=== PATIENT | female | born 1975 | race Caucasian/White ===

== ENCOUNTER 2021-03-02 10:16 | Outpatient (REF) | payer OTHER, SELFPAY ==
[2021-03-02 10:40] LABS: MANUAL DIFF FLAG NO
[2021-03-02 10:56] LABS: Basophils Absolute Auto 0.1 X10*3/uL (0.0-0.2); Basophils Percent Auto 0.5 % (0-2); Eosinophils Absolute Auto 0.1 X10*3/uL (0.0-0.4); Hematocrit 39.8 % (37-47); Hemoglobin 14.1 g/dl (12.0-16.0); Imm Gran Abs Auto 0.06 X10*3/uL (0.00-0.03); Imm Gran Pct Auto 0.6 % (0.0-0.4); Lymphocytes Absolute Auto 2.8 X10*3/uL (1.2-4.9); Lymphocytes Percent Auto 28.9 % (20-40); Mean Corpuscular HGB Conc 35.4 g/dl (31.0-35.0); Mean Corpuscular Hemoglobin 32.5 pg (27.0-33.0); Mean Corpuscular Volume 91.7 fL (80-98); Mean Platelet Volume 10.1 fL (9.4-12.3); Monocytes Absolute Auto 0.4 X10*3/uL (0.1-1.2); Monocytes Percent Auto 3.9 % (2-11); Neutrophils Absolute Auto 6.3 X10*3/uL (2.0-8.3); Neutrophils Percent Auto 65.1 % (45-73); Platelet Count 268 X10*3/uL (160-400); Red Blood Count 4.34 X10*6/uL (4.20-5.50); Red Cell Distribution Width 12.5 % (11.0-16.0); White Blood Count 9.6 X10*3/uL (4.8-10.8)
[2021-03-02 11:22] LABS: Alanine Aminotransferase 19 U/L (0-31); Albumin Level 4.6 g/dL (3.5-5.0); Alkaline Phosphatase 45 U/L (39-117); Anion Gap 10 (12-20); Aspartate Amino Transferase 20 U/L (5-31); Bilirubin Total 0.4 mg/dL (0.0-1.0); Blood Urea Nitrogen 9 mg/dL (9-16); Calcium 9.9 mg/dL (8.4-10.2); Carbon Dioxide 27 mmol/L (22-29); Chloride 104 mmol/L (96-108); Cholesterol 170 mg/dL; Estimated Glomerular Filt Rate > 60; Glucose Random 97 mg/dL (60-115); HDL Cholesterol 56 mg/dL; LDL Cholesterol Calculated 93 mg/dl; Potassium 4.4 mmol/L (3.3-5.1); Sodium 137 mmol/L (135-145); Total Protein 7.1 g/dL (6.5-8.0); Triglycerides 105 mg/dL
[2021-03-02 11:43] LABS: Free T4 (Free Thyroxine) 0.92 ng/dL (0.71-1.85)
[2021-03-02 11:56] LABS: Folate > 20.0 ng/mL (> or = 4.0); Vitamin B12 656 pg/mL (200-900)
== END 2021-03-02 10:17 | disposition home or self-care (01) ==
LOC: HO.LAB 10:16
PROVIDERS: PCP Internal Medicine; Visit Provider Internal Medicine
DX: E03.9 Hypothyroidism, unspecified (principal); E78.00 Pure hypercholesterolemia, unspecified
CPT/HCPCS: 36415; 80053; 80061; 82306; 82607; 82746; 84439; 84443; 85025

== ENCOUNTER 2021-03-09 08:03 | Outpatient (REF) | payer OTHER, SELFPAY ==
--- NOTE | ~2021-03-09 | US_ITS ---
EXAMINATION: US COMPLETE ABDOMEN WITH LIVER ELASTOGRAPHY CLINICAL INFORMATION: Abnormal liver function tests COMPARISON: CT of the abdomen and pelvis March 2017 TECHNIQUE: Real-time imaging of the abdominal viscera. Noninvasive ultrasound liver fibrosis assessment is performed using Bhargavi ElastPQ point quantification shear wave elastography (pSWE) with a C5-2 MHz transducer. Multiple elastography samples are obtained. FINDINGS: PANCREAS: Normal. ABDOMINAL AORTA: The proximal, middle, and distal aortic segments are normal in caliber. INFERIOR VENA CAVA: Visualized portions are normal. LIVER: Liver echotexture is increased. The liver demonstrates normal size and contour. No focal lesion or intrahepatic biliary duct dilatation. The right lobe measures 16.7 cm in length. The left lobe measures 11.5 cm in length. Portal flow is normal/hepatopedal Shear wave liver elastography median stiffness is 1.6 m/s (reference: normal median stiffness is 1.3 m/s or less). IQR/median stiffness to assess sampling precision is 0.6 (reference: good quality data set is IQR/median stiffness of 0.15 or less). GALLBLADDER: There are gallstones in the gallbladder. The gallbladder is normal in size. The gallbladder wall is normal. COMMON BILE DUCT: Normal in caliber measuring 0.3 cm in diameter. RIGHT KIDNEY: Normal. No hydronephrosis. No renal calculi or focal parenchymal lesions. The kidney measures 11.5 cm in maximum dimension. LEFT KIDNEY: Normal. No hydronephrosis. No renal calculi or focal parenchymal lesions. The kidney measures 11.6 cm in maximum dimension. SPLEEN: Normal. The spleen measures 11.8 cm in maximum dimension. FREE FLUID: None. US/US abdomen comp w elastography IMPRESSION: 1. Impression: Gallstones. Slightly echogenic liver probably representing fatty infiltration.. 2. Liver elastography: Limited due to sampling error. REFERENCE: Society of Radiologists in Ultrasound Liver Stiffness Thresholds (2020): LIVER STIFFNESS THRESHOLDS: *Liver Stiffness equal or less than 1.3 m/s: High probability of being normal. *Liver Stiffness less than 1.7 m/s: In the absence of other known clinical signs, rules out compensated advanced chronic liver disease. *Liver Stiffness 1.7-2.1 m/s: Suggestive of compensated advanced chronic liver disease but need further test for confirmation. *Liver Stiffness over 2.1 m/s: Rules in compensated advanced chronic liver disease. *Liver Stiffness over 2.4 m/s: Suggestive of clinically significant portal hypertension. QUALITY OF DATA SET: *IQR/Median value equal or less than 0.15 implies a quality data set. *IQR/Median value over 0.15 implies a poor quality data set. SIGNIFICANT CHANGE FROM PRIOR EXAM: Significant change if liver stiffness measurment is 10% or greater from prior exam. OTHER CONSIDERATIONS: The stage of liver fibrosis may be overestimated in the setting of acute hepatitis, liver inflammation, elevated liver function tests, hepatic vascular congestion, obstructive cholestasis, non-fasting state, and infiltrative diseases such as amyloidosis and lymphoma. In some patients with NAFLD, the liver stiffness thresholds for compensated advanced chronic liver disease may be lower. In causes other than viral hepatitis and NAFLD, liver stiffness thresholds are not well established. The liver is normal in size. The liver contour is normal. Parenchymal echogenicity is normal. No focal hepatic lesion. There is no intrahepatic biliary duct dilatation seen.
== END 2021-03-09 08:04 | disposition home or self-care (01) ==
LOC: HO.US 08:03
PROVIDERS: PCP Internal Medicine; Visit Provider Internal Medicine
DX: R79.89 Other specified abnormal findings of blood chemistry (principal); K80.20 Calculus of gallbladder without cholecystitis without obstruction; Z87.442 Personal history of urinary calculi
CPT/HCPCS: 76700; 76705; 76981

== ENCOUNTER → 2021-04-18 07:56 | Outpatient (BNVA) | payer OTHER, SELFPAY | PROVIDERS: PCP Internal Medicine; Referring Provider Internal Medicine; Visit Provider Nurse Practitioner Family ==

== ENCOUNTER → 2021-05-23 08:05 | Outpatient (BNVA) | payer OTHER, SELFPAY | PROVIDERS: PCP Internal Medicine; Referring Provider Internal Medicine; Visit Provider Nurse Practitioner Family ==

== ENCOUNTER 2021-11-06 10:38 | Day surgery (SDC) | payer OTHER, SELFPAY ==
[2021-10-27 19:54] VITALS: BMI 38.6
--- NOTE | 2021-11-02 13:44 | HO.ANESPROP2 ---
Documented by User: Zahra Lopez NP 11/02/21 13:45 HPI - Anesthesia Eval Consult details Narrative: 46yo F for Colonoscopy PMFSH Active Problems Active Problems: All Active Problems (Updated 02/10/21 @ 17:12 by Brendon Avina MD) Colon cancer screening (Acute) Cholelithiasis (Acute) History of renal calculi (Acute) Acne (Acute) Hirsutism (Acute) Obsessive compulsive disorder (Acute) Hypothyroid (Acute) Recurrent major depression (Acute) Obesity (BMI 30-39.9) (Acute) Past Medical History Medical History (Updated 11/02/21 @ 13:44 by Zahra Lopez NP) Asthma Hypothyroid Obsessive compulsive disorder Polycystic ovarian syndrome Recurrent major depression Family History Family History Father Cancer Renal cancer Myocardial infarct Mother No problems noted. Sister No problems noted. Sister No problems noted. Son No problems noted. Maternal Grandmother Colon cancer Surgical History Surgical History H/O abdominal surgery History of ankle surgery History of section Social History Social History Housing: House Alcohol intake: current Alcohol intake frequency: a few times a month Patient Tobacco Use Status: Former Tobacco user Tobacco use type: Cigarette Years Smoked: Quit 2015 e-Cigarette/Vaping Use: Never Used Second Hand Smoke Exposure: No Use of substances other than those prescribed or required for medical reasons: No Are you DNR?: No Advance Directives: No Advance Directives Information Provided: Yes Advance Directives on File: No Recently lost weight without trying: No Nutrition Risks: No Nutritional Risk Patient : No Current occupational status: employed Meds Allergies Allergy/AdvReac Type Severity Reaction Status Date / Time Sulfa (Sulfonamide Allergy Mild RASH Verified 10/30/21 11:07 Antibiotics) [Sulfa (Sulfonamides)] erythromycin base Allergy Unknown HIVES Verified 10/30/21 11:07 [From ERYTHROCIN] Home Medications Medication Instructions Recorded Confirmed Last Taken Type bupropion HCl 200 mg tablet,12 hr 200 mg PO DAILY 02/10/21 10/27/21 Unknown History sustained-release (Wellbutrin SR) cholecalciferol (vitamin D3) 25 25 mcg PO DAILY 02/10/21 10/27/21 Unknown History mcg (1,000 unit) capsule fluoxetine 10 mg tablet 10 mg PO DAILY 02/10/21 10/27/21 Unknown History levonorgestrel 20 mcg/24 hours (7 1 device intrauterine DIRECTED 02/10/21 10/27/21 Unknown History yrs) 52 mg intrauterine device (Mirena) magnesium oxide 500 mg capsule 500 mg PO DAILY 02/10/21 10/27/21 Unknown History psyllium husk 0.52 gram capsule 0.52 g PO BEDTIME 02/10/21 10/27/21 Unknown History (Daily Fiber) Exam Exam Date and Time: November 02, 2021 1344 Height,Weight and Vital Signs: Height 5 ft 4 in Weight 102.058 kg Assessment and Plan Assessment Anesthesia Assessment: Chart Reviewed Documented by User: Radha Arevalo MD 11/06/21 11:21 [facility] Past Medical History Medical History (Updated 11/02/21 @ 13:44 by Zahra Lopez NP) Asthma Hypothyroid Obsessive compulsive disorder Polycystic ovarian syndrome Recurrent major depression Family History Family History Father Cancer Renal cancer Myocardial infarct Mother No problems noted. Sister No problems noted. Sister No problems noted. Son No problems noted. Maternal Grandmother Colon cancer Family history of problems with anesthesia: No Surgical History Surgical History H/O abdominal surgery History of ankle surgery History of section History of Problems with Anesthesia: No Social History Social History Housing: House Alcohol intake: current Alcohol intake frequency: a few times a month Patient Tobacco Use Status: Former Tobacco user Tobacco use type: Cigarette Years Smoked: Quit 2015 e-Cigarette/Vaping Use: Never Used Second Hand Smoke Exposure: No Use of substances other than those prescribed or required for medical reasons: No Are you DNR?: No Advance Directives: No Advance Directives Information Provided: Yes Advance Directives on File: No Recently lost weight without trying: No Nutrition Risks: No Nutritional Risk Patient : No Current occupational status: employed Meds Allergies Allergy/AdvReac Type Severity Reaction Status Date / Time Sulfa (Sulfonamide Allergy Mild RASH Verified 10/30/21 11:07 Antibiotics) [Sulfa (Sulfonamides)] erythromycin base Allergy Unknown HIVES Verified 10/30/21 11:07 [From ERYTHROCIN] Home Medications Medication Instructions Recorded Confirmed Last Taken Type bupropion HCl 200 mg tablet,12 hr 200 mg PO DAILY 02/10/21 10/27/21 Unknown History sustained-release (Wellbutrin SR) cholecalciferol (vitamin D3) 25 25 mcg PO DAILY 02/10/21 10/27/21 Unknown History mcg (1,000 unit) capsule fluoxetine 10 mg tablet 10 mg PO DAILY 02/10/21 10/27/21 Unknown History levonorgestrel 20 mcg/24 hours (7 1 device intrauterine DIRECTED 02/10/21 10/27/21 Unknown History yrs) 52 mg intrauterine device (Mirena) magnesium oxide 500 mg capsule 500 mg PO DAILY 02/10/21 10/27/21 Unknown History psyllium husk 0.52 gram capsule 0.52 g PO BEDTIME 02/10/21 10/27/21 Unknown History (Daily Fiber) Exam Airway Mallampati Class: II TM Dist: >3cm Neck ROM: Full Heart: rrr Lungs: cta Assessment and Plan Assessment Anesthesia Assessment: Anesthesia Plan Discussed and Chart Reviewed Final Anesthetic Review Family History of Problems with Anesthesia: No History of Problems with Anesthesia: No NPO: Yes ASA Class: III Final Preanesthetic Review: No Changes in Pt Med Stat, Meds/Allgs Chart Reviewed and Consent Obtained/Reviewed Patient Risk: Intermediate Procedure Risk: Intermediate Anesthetic Plan Anesthetic Plan: MAC: Disposition: Standard PACU
[2021-11-06 11:06] VITALS: BP 115/83; PULSE 79; RESP 18; TEMP 36.1; O2SAT 95
[2021-11-06] MEDS: Lactated Ringers 1,000 ML 100 ML IVCONT (11:20)
[2021-11-06 11:40] LABS: UPreg QC Valid YES; Urine Pregnancy NEGATIVE (NEGATIVE)
--- NOTE | 2021-11-06 12:14 | MHC.SHP ---
Pre-Procedural Eval Section A Date of Service: 11/06/21 The patient is an INPATIENT: No The History & Physical has been completed within 30 days and I have reviewed it.: No Section B Chief Complaint: screening Relevant Family History (Specify if Yes): Yes Relevant Social History: Tobacco Use (former smoker) Present Medications: see Short Stay Collaborative assessment Medical History: Significant History (Asthma Cholelithiasis History of renal calculi Hypothyroid Obesity (BMI 30-39.9) Polycystic ovarian syndrome) History of Previous Operations: Relevant previous surgery/procedure and date(s) (H/O abdominal surgery History of ankle surgery History of section) Allergies: Allergies Allergy/AdvReac Type Severity Reaction Status Date / Time Sulfa (Sulfonamide Allergy Mild RASH Verified 10/30/21 11:07 Antibiotics) [Sulfa (Sulfonamides)] erythromycin base Allergy Unknown HIVES Verified 10/30/21 11:07 [From ERYTHROCIN] Review of Systems Sugical H&P ROS: Negative: Constitution, Cardiovascular, Respiratory and Gastrointestinal Exam Surgical H&P Exam: Normal: Heart, Normal: Lungs, Normal: Extremities and Normal: Abdomen Plan Diagnosis/Plan: Unchanged I have reviewed the history and physical and performed a pertinent physical examination on my patient. No changes have occurred unless specified.
--- NOTE | 2021-11-06 12:26 | P.BOP_ITS ---
Brief Operative Note Date of Service: 11/06/21 Pre-op diagnosis: Colon cancer screen, family history of colon cancer (GM in her late 60's) Post-op diagnosis: other (Colon polyps, diverticulosis, hemorrhoids) Procedure: COLONOSCOPY TILL CECUM WITH BIOPSIES AND SNARE POLYPECTOMY Consent: Indications for the procedure and potential complications of bleeding, perforation, reaction to medications and missed diagnosis were discussed with the patient and informed consent was obtained. Instrument: Olympus PCF H 190 L variable stiffness pediatric colonoscope Monitoring: Vital signs and clinical assessment, intermittent blood pressure monitoring, continuous EKG monitoring, Pulse oximetry and Carbon Dioxide monitoring were done throughout the procedure. Colon withdrawl time was 17 minutes. Procedure: The patient was placed in the left lateral decubitis position and pre-procedure medications were administered. After a digital rectal examination of the ano-rectum, the video colonoscope was inserted into the rectum and advanced through the colon to the cecum. The colonoscope was slowly withdrawn in a retrograde panoramic fashion and the colon mucosa was carefully examined including a retroflexed view of the rectum. Findings and interventions are described below. Procedure Difficulty: Without difficulty Findings: Terminal Ileum: Not evaluated Cecum: Partially evaluated due to undigested vegetable matter Ascending Colon: Normal Transverse Colon: A 5-6 mm sessile polyp removed with a cold bx. Descending Colon: Normal Sigmoid Colon: Moderate diverticulosis Rectum: A 7-8 mm diminutive appearing polyp removed with a cold snare. Ano-rectum: Small internal hemorrhoids Colon preparation: Good after some irrigation Impression and Post Procedure Diagnosis: Colonoscopy Findings: Two small polyps removed Moderate diverticulosis seen in the sigmoid colon Moderate hemorrhoids on retroflexed exam. Plan: Await pathology results Patient has an appointment on 11/21/21 in the GI Clinic with Linda Lewis F NP-IZABEL . Repeat Colonoscopy interval based on path results - in 5 years if polyps are adenomatous and due to positive FH of colon cancer. Above findings were reviewed with the patient and colon polyps and diverticulosis handouts were given in the discharge area Surgeon: Jordan Rodriguez MD Anesthesia: MAC (Dr Scruggs) Was an Log Deck Tender used for this Procedure?: Yes Log Deck Tender: Doreen Wesley Estimated blood loss (mL): 0 Pathology: other (A. transverse colon polyp B. rectal polyp) Condition: stable Disposition: PACU
[2021-11-06 13:00] VITALS: BP 110/59; PULSE 83; RESP 16; TEMP 36.1; O2SAT 96
[2021-11-06 13:15] VITALS: BP 111/74; PULSE 81; RESP 16; TEMP 36.5; O2SAT 99
--- NOTE | 2021-11-06 16:39 | W.PM.OPN ---
Operative Note Operative Note Date of Service: 11/06/21 Narrative: Pre-op diagnosis: Colon cancer screen, family history of colon cancer (GM in her late 60's) Post-op diagnosis:?other (Colon polyps, diverticulosis, hemorrhoids) Procedure: COLONOSCOPY TILL CECUM WITH BIOPSIES AND SNARE POLYPECTOMY Consent: Indications for the procedure and potential complications of bleeding, perforation, reaction to medications and missed diagnosis were discussed with the patient and informed consent was obtained. Instrument: Olympus PCF H 190 L variable stiffness pediatric colonoscope Monitoring: Vital signs and clinical assessment, intermittent blood pressure monitoring, continuous EKG monitoring, Pulse oximetry and Carbon Dioxide monitoring were done throughout the procedure. Colon withdrawl time was 17 minutes. Procedure: The patient was placed in the left lateral decubitis position and pre-procedure medications were administered. After a digital rectal examination of the ano-rectum, the video colonoscope was inserted into the rectum and advanced through the colon to the cecum. The colonoscope was slowly withdrawn in a retrograde panoramic fashion and the colon mucosa was carefully examined including a retroflexed view of the rectum. Findings and interventions are described below. Procedure Difficulty: Without difficulty Findings: Terminal Ileum: Not evaluated Cecum:? Partially evaluated due to undigested vegetable matter Ascending Colon:? Normal Transverse Colon:? A 5-6 mm sessile polyp removed with a cold bx. Descending Colon:? Normal Sigmoid Colon:? Moderate diverticulosis Rectum:? A 7-8 mm diminutive appearing polyp removed with a cold snare. Ano-rectum:? Small internal hemorrhoids Colon preparation:? Good after some irrigation Impression and Post Procedure Diagnosis: Colonoscopy Findings: Two small polyps removed Moderate diverticulosis seen in the sigmoid colon Moderate hemorrhoids on retroflexed exam. Plan: Await pathology results Patient has an appointment on 11/21/21 in the GI Clinic with ? Linda Lewis FNP-BC . Repeat Colonoscopy interval based on path results - in 5 years if polyps are adenomatous and due to positive FH of colon cancer. Above findings were reviewed with the patient and colon polyps and diverticulosis handouts were given in the discharge area Surgeon: Jordan Rodriguez MD Anesthesia:?MAC (Dr Scruggs) Was an Polymer Scientist used for this Procedure?:?Yes Polymer Scientist:?Doreen Wesley Estimated blood loss (mL):?0 Pathology:?other (A. transverse colon polyp? B. rectal polyp) Condition:?stable Disposition:?PACU
== END 2021-11-06 14:00 | disposition home or self-care (01) ==
PROVIDERS: Nurse Practitioner; PCP Internal Medicine; Visit Provider Internal Medicine Gastroenterology
PROC: 0DJD8ZZ Inspection of Lower Intestinal Tract, Via Natural or Artificial Opening Endoscopic (ICD-10-PCS; CPT 45378; principal; 2021-11-06 11:50)
DX: Z12.11 Encounter for screening for malignant neoplasm of colon (principal); Z80.0 Family history of malignant neoplasm of digestive organs; K63.5 Polyp of colon; K62.1 Rectal polyp; K57.30 Diverticulosis of large intestine without perforation or abscess without bleeding; K64.8 Other hemorrhoids; J45.909 Unspecified asthma, uncomplicated; E03.9 Hypothyroidism, unspecified; E28.2 Polycystic ovarian syndrome; E66.9 Obesity, unspecified; Z68.38 Body mass index [BMI] 38.0-38.9, adult; Z79.899 Other long term (current) drug therapy; Z88.2 Allergy status to sulfonamides; Z88.1 Allergy status to other antibiotic agents; Z87.891 Personal history of nicotine dependence
CPT/HCPCS: 45385; 45380; 81025; 88305

== ENCOUNTER → 2021-11-29 15:34 | Outpatient (REF) | payer OTHER, SELFPAY | LOC: HO.SL 15:34 | PROVIDERS: PCP Internal Medicine; Visit Provider Internal Medicine | DX: G47.33 Obstructive sleep apnea (adult) (pediatric) (principal) | CPT/HCPCS: 95806 ==

== ENCOUNTER 2022-11-03 08:21 | Outpatient (REF) | payer OTHER, SELFPAY ==
[2022-11-03 08:47] LABS: MANUAL DIFF FLAG NO
[2022-11-03 09:05] LABS: Estimated Average Glucose 100 mg/dL; Hemoglobin A1c % 5.1 %
[2022-11-03 09:07] LABS: Basophils Absolute Auto 0.1 X10*3/uL (0.0-0.2); Basophils Percent Auto 0.6 % (0-2); Eosinophils Absolute Auto 0.1 X10*3/uL (0.0-0.4); Eosinophils Percent Auto 0.9 % (0-4); Hemoglobin 13.9 g/dl (12.0-16.0); Imm Gran Abs Auto 0.05 X10*3/uL (0.00-0.03); Imm Gran Pct Auto 0.6 % (0.0-0.4); Lymphocytes Absolute Auto 2.5 X10*3/uL (1.2-4.9); Lymphocytes Percent Auto 31.7 % (20-40); Mean Corpuscular HGB Conc 33.9 g/dl (31.0-35.0); Mean Corpuscular Hemoglobin 31.8 pg (27.0-33.0); Mean Corpuscular Volume 93.8 fL (80.0-98.0); Mean Platelet Volume 10.1 fL (9.4-12.3); Monocytes Absolute Auto 0.4 X10*3/uL (0.1-1.2); Monocytes Percent Auto 5.2 % (2-11); Neutrophils Absolute Auto 4.7 x10*3/uL (2.0-8.3); Platelet Count 304 X10*3/uL (160-400); Red Blood Count 4.37 X10*6/uL (4.20-5.50); Red Cell Distribution Width 13.1 % (11.0-16.0); White Blood Count 7.8 X10*3/uL (4.8-10.8)
[2022-11-03 09:57] LABS: Alanine Aminotransferase 13 U/L (0-31); Albumin Level 4.4 g/dL (3.5-5.0); Alkaline Phosphatase 53 U/L (39-117); Anion Gap 12 (12-20); Aspartate Amino Transferase 14 U/L (5-31); Bilirubin Total 0.4 mg/dL (0.0-1.0); Blood Urea Nitrogen 17 mg/dL (9-16); Calcium 10.4 mg/dL (8.4-10.2); Carbon Dioxide 26 mmol/L (22-29); Chloride 104 mmol/L (96-108); Cholesterol 189 mg/dL; Estimated Glomerular Filt Rate > 60; Glucose Random 100 mg/dL (60-115); HDL Cholesterol 51 mg/dL; LDL Cholesterol Calculated 106 mg/dl; Potassium 4.4 mmol/L (3.3-5.1); Sodium 138 mmol/L (135-145); Total Protein 7.4 g/dL (6.5-8.0); Triglycerides 162 mg/dL
[2022-11-03 10:07] LABS: Thyroid Stimulating Hormone 2.12 uIU/mL (0.32-4.0); Vitamin D 25-OH Total 62.6 ng/mL (>30)
[2022-11-03 10:18] LABS: Folate 7.4 ng/mL (> or = 4.0); Vitamin B12 379 pg/mL (200-900)
== END 2022-11-03 08:22 | disposition home or self-care (01) ==
LOC: HO.LAB 08:21
PROVIDERS: PCP Internal Medicine; Visit Provider Internal Medicine
DX: E03.9 Hypothyroidism, unspecified (principal); E78.00 Pure hypercholesterolemia, unspecified; E66.9 Obesity, unspecified; Z13.1 Encounter for screening for diabetes mellitus
CPT/HCPCS: 36415; 80053; 80061; 82306; 82607; 82746; 83036; 84439; 84443; 85025

== ENCOUNTER 2022-12-06 15:37 | Outpatient (AMB) | payer OTHER, SELFPAY ==
[2022-12-06 15:58] VITALS: BP 124/68; PULSE 77; O2SAT 98; BMI 40.2
--- NOTE | 2022-12-06 15:58 | A.OFFPC_ITS ---
Vital Signs 12/06/22 15:58 Height 5 ft 4 in Weight 234 lb BMI 40.2 BP 124/68 Blood Pressure Location Lt brachial Position Sitting Pulse 77 Pulse Source Pulse Oximeter Pulse Oximetry (%) 98 Oxygen Delivery Method Room Air Intake Visit Reasons: 3 month f/u Allergies Sulfa (Sulfonamide Antibiotics) [Sulfa (Sulfonamides)] Allergy (Mild, Verified 12/06/22 15:58) RASH erythromycin base [From ERYTHROCIN] Allergy (Unknown, Verified 12/06/22 15:58) HIVES Medication List - Last Reconciled 12/06/22 by Brendon Avina MD [AUTOPAP mode 6-20 cm H2O humidified AIR As directed] bupropion HCl (Wellbutrin SR) 200 mg PO DAILY cholecalciferol (vitamin D3) 25 mcg PO DAILY fluoxetine 10 mg PO DAILY levonorgestrel (Mirena) 1 device intrauterine DIRECTED levothyroxine 50 mcg PO DAILY 90 days psyllium husk (Daily Fiber) 0.52 grams PO BEDTIME spironolactone 100 mg PO BID 90 days Tobacco use date assessed: 08/31/22 Dental Screening Dental Screen Date: 12/06/22 Did you have a dental visit in the last 12 months?: Yes Did you have a dental problem in the last 6 months where you did not have access to dental care?: No Was dental information given to patient?: Patient has dentist HPI 3 month f/u HPI Details 47-year-old obese female with obstructive sleep apnea hypothyroidism generalized anxiety disorder last seen in August 2022 for physical blood work request and now for follow-up. Up-to-date with mammogram, and colonoscopy [facility] Medical History (Updated 12/06/22 @ 16:42 by Brendon Avina MD) Asthma Cholelithiasis Family history of colon cancer History of renal calculi Hypothyroid Obesity (BMI 30-39.9) Obsessive compulsive disorder Polycystic ovarian syndrome Recurrent major depression Surgical History H/O abdominal surgery History of ankle surgery History of section History of colonoscopy Family History (Updated 08/31/22 @ 16:37 by Brendon Avina MD) Father Cancer Renal cancer Myocardial infarct Lymphoma Mother No problems noted. Sister No problems noted. Sister No problems noted. Son No problems noted. Maternal Grandmother Colon cancer Other Mental health disorder Social History (Updated 08/31/22 @ 16:38 by Brendon Avina MD) Housing: House Alcohol intake: current Alcohol intake frequency: a few times a month Patient Tobacco Use Status: Former Tobacco user Tobacco use type: Cigarette Years Smoked: Quit 2016 e-Cigarette/Vaping Use: Never Used Second Hand Smoke Exposure: No service: No Current occupational status: employed Cognitive needs: No Hearing needs: No Vision needs: No Questionnaire PHQ-9 Over the last 2 weeks, how often have you been bothered by any of the following problems? 1. Little interest or pleasure in doing things: not at all 2. Feeling down, depressed, or hopeless: several days 3. Trouble falling or staying asleep, or sleeping too much: not at all 4. Feeling tired or having little energy: not at all 5. Poor appetite or overeating: not at all 6. Feeling bad about yourself - or that you are a failure or have let yourself or your family down: not at all 7. Trouble concentrating on things, such as reading the newspaper or watching television: not at all 8. Moving or speaking so slowly that other people could have noticed. Or the opposite - being so fidgety or restless that you have been moving around a lot m ore than usual: not at all 9. Thoughts that you would be better off or of hurting yourself in some way: not at all Total score: 1 Depression Screening Interpretation: Positive Source: Developed by Drs. Sammy Cristobal, Yoli Vasquez, Thor Nash and colleagues, with an educational alexa from [employer] [facility]. Thrive Questionnaire Date Thrive assessed: 08/31/22 AUDIT C Alcohol Use Questionnaire (AUDIT-C) 1. How often do you have a drink containing alcohol?: 2-4 times a month 2. How many drinks containing alcohol do you have on a typical day when you are drinking?: 1 or 2 Total Score: 2 CHARLEY-7 AMB Questionnaire CHARLEY-7 Date CHARLEY - 7 assessed: 08/31/22 Source: Developed by Drs. Sammy Cristobal, Thor Schmidt and colleagues, with an educational alexa from [employer] [facility] [facility]. Physical exam (Primary Care) Vital Signs: Last Vital Signs Pulse 77 12/06/22 15:58 BP 124/68 07/20/23 15:58 Pulse Ox 98 12/06/22 15:58 Oxygen Delivery Method Room Air 12/06/22 15:58 BMI result Body Mass Index 40.2 Tobacco/Smoking Status: Tobacco use Status Tobacco use date assessed 08/31/22 12/06/22 16:01 Patient Tobacco Use Status Former Tobacco user 12/06/22 16:01 Tobacco use type Cigarette 12/06/22 16:01 e-Cigarette/Vaping Use Never Used 12/06/22 16:01 PHQ-9: PHQ-9 Score PHQ-9: Total score 1 12/06/22 16:01 Depression Screening Interpretation: Positive Thrive Assessment: Date of Thrive Assessment Date Thrive assessed 08/31/22 12/06/22 16:01 Const General: alert; No acute distress Eyes Conjunctivae: conjunctivae normal Resp Auscultation: clear to auscultation bilaterally Cardio Rate: regular rate Rhythm: regular rhythm GI Inspection: Yes normal to inspection Extrem General: Yes normal to inspection and No edema Assessment and Plan Assessment & Plan (1) Obesity (BMI 30-39.9): Code(s): E66.9 - Obesity, unspecified Plan: Diet and exercise (2) Impaired glucose tolerance: Code(s): R73.02 - Impaired glucose tolerance (oral) Plan: Decrease the amount of carbohydrate intake, pasta, bread, rice and potatoes are all sugar and that is aside from all the sweet stuff, remember that fruits are good but they are Sweet also. (3) Hypercholesterolemia: Code(s): E78.00 - Pure hypercholesterolemia, unspecified Plan: Avoid fried foods, chicken skin, eggs, butter margarine, pastries and meat. Be it pork or beef they have a lot of cholesterol LDL goal of less than 130 and triglyceride of less than 150 (4) Obstructive sleep apnea: Comment: November 2021 Code(s): G47.33 - Obstructive sleep apnea (adult) (pediatric) Plan: Continue to use the CPAP more than 4 hours a night and benefits from this (5) Hypothyroid: Code(s): E03.9 - Hypothyroidism, unspecified Plan: Continue with thyroid medication (6) Hypercalcemia: Code(s): E83.52 - Hypercalcemia Plan: Patient has a history of renal calculi. Will request for parathyroid hormone and retest calcium. Orders: Orders Calcium Today E83.52 - Hypercalcemia Calcium, Ionized Today E83.52 - Hypercalcemia PTHI Today E83.52 - Hypercalcemia Lipid Panel 2 Months E78.00 - Pure hypercholesterolemia, unspecified, E83.52 - Hypercalcemia Comprehensive Met. Panel 2 Months E83.52 - Hypercalcemia Hemoglobin A1c 2 Months E83.52 - Hypercalcemia Medications: Changed From spironolactone 100 mg PO BID 30 days 60 tabs 3RF L70.9 - Acne, unspecified To spironolactone 100 mg PO BID 90 days 180 tabs 2RF L70.9 - Acne, unspecified Refilled levothyroxine 50 mcg PO DAILY 90 days 90 tabs 1RF E03.9 - Hypothyroidism, unspecified Coding Level of Care Code Est Pt Level 4 (67200) Diagnoses Obesity (BMI 30-39.9) E66.9 Impaired glucose tolerance R73.02 Hypercholesterolemia E78.00 Obstructive sleep apnea G47.33 Hypothyroid E03.9 Hypercalcemia E83.52
== END 2022-12-06 17:35 | disposition home or self-care (01) ==
PROVIDERS: Visit Provider Internal Medicine
DX: E03.9 Hypothyroidism, unspecified (principal); E83.52 Hypercalcemia; Z68.41 Body mass index [BMI] 40.0-44.9, adult; E66.9 Obesity, unspecified; R73.02 Impaired glucose tolerance (oral); E78.00 Pure hypercholesterolemia, unspecified; G47.33 Obstructive sleep apnea (adult) (pediatric)
CPT/HCPCS: 99214

== ENCOUNTER 2023-06-15 09:26 | Outpatient (REF) | payer OTHER, SELFPAY ==
[2023-06-15 10:50] LABS: Estimated Average Glucose 105 mg/dL; Hemoglobin A1c % 5.3 % (<6.0)
[2023-06-15 11:33] LABS: Alanine Aminotransferase 24 U/L (0-31); Albumin Level 4.4 g/dL (3.5-5.0); Alkaline Phosphatase 49 U/L (39-117); Anion Gap 13 (12-20); Aspartate Amino Transferase 18 U/L (5-31); Bilirubin Total 0.4 mg/dL (0.0-1.0); Blood Urea Nitrogen 11 mg/dL (9-16); Carbon Dioxide 25 mmol/L (22-29); Chloride 104 mmol/L (96-108); Cholesterol 196 mg/dL (<200); Estimated Glomerular Filt Rate > 60; Glucose Random 98 mg/dL (60-115); HDL Cholesterol 49 mg/dL (>40); LDL Cholesterol Calculated 117 mg/dL (<100); Potassium 4.3 mmol/L (3.3-5.1); Sodium 138 mmol/L (135-145); Total Protein 7.3 g/dL (6.5-8.0); Triglycerides 150 mg/dL (<150)
[2023-06-17 15:44] LABS: Calcium, Ionized 5.2 mg/dL (4.7-5.5)
== END 2023-06-15 09:27 | disposition home or self-care (01) ==
LOC: HO.LAB 09:26
PROVIDERS: PCP Internal Medicine; Visit Provider Internal Medicine
DX: E78.00 Pure hypercholesterolemia, unspecified (principal); E83.52 Hypercalcemia
CPT/HCPCS: 36415; 80053; 80061; 82330; 83036

== ENCOUNTER 2023-08-01 14:36 | Outpatient (AMB) | payer OTHER, SELFPAY ==
[2023-08-01 14:37] VITALS: BP 146/90; PULSE 82; O2SAT 98; BMI 41.5
--- NOTE | 2023-08-01 14:37 | MHC.PC.OV ---
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: Not Required per policy Accompanied by: Self / Same As Patient Allergies Sulfa (Sulfonamide Antibiotics) [Sulfa (Sulfonamides)] Allergy (Mild, Verified 08/01/23 14:38) RASH erythromycin base [From ERYTHROCIN] Allergy (Unknown, Verified 08/01/23 14:38) HIVES Medication List - Last Reconciled 08/01/23 by Brendon Avina MD [AUTOPAP mode 6-20 cm H2O humidified AIR As directed] bupropion HCl (Wellbutrin SR) 200 mg PO DAILY cholecalciferol (vitamin D3) 25 mcg PO DAILY fluoxetine 10 mg PO DAILY levonorgestrel (Mirena) 1 device intrauterine DIRECTED levothyroxine 50 mcg PO DAILY 90 days psyllium husk (Daily Fiber) 0.52 grams PO BEDTIME spironolactone 100 mg PO BID 90 days Tobacco use date assessed: 08/01/23 Dental Screening Dental Screen Date: 08/01/23 Did you have a dental visit in the last 12 months?: Yes Did you have a dental problem in the last 6 months where you did not have access to dental care?: No HPI discuss weight loss medication HPI Details 47-year-old morbidly obese female with a history of impaired glucose tolerance hypercholesterolemia obstructive sleep apnea hypothyroidism coming in for follow-up. Last seen in November 2022. Patient is up-to-date with mammogram and colonoscopy. [facility] Medical History (Updated 08/01/23 @ 15:01 by Brendon Avina MD) Family history of colon cancer Polycystic ovarian syndrome Asthma Obsessive compulsive disorder History of renal calculi Cholelithiasis Hypothyroid Recurrent major depression Obesity (BMI 30-39.9) Surgical History History of colonoscopy H/O abdominal surgery History of ankle surgery History of section Family History Father Cancer Renal cancer Myocardial infarct Lymphoma Mother No problems noted. Sister No problems noted. Sister No problems noted. Son No problems noted. Maternal Grandmother Colon cancer Other Mental health disorder Social History (Updated 08/31/22 @ 16:38 by Brendon Avina MD) Housing: House Alcohol intake: current Alcohol intake frequency: a few times a month Patient Tobacco Use Status: Former Tobacco user Tobacco use type: Cigarette Years Smoked: Quit 2016 e-Cigarette/Vaping Use: Never Used Second Hand Smoke Exposure: No service: No Current occupational status: employed Cognitive needs: No Hearing needs: No Vision needs: No Questionnaire PHQ-9 Over the last 2 weeks, how often have you been bothered by any of the following problems? 1. Little interest or pleasure in doing things: not at all 2. Feeling down, depressed, or hopeless: several days 3. Trouble falling or staying asleep, or sleeping too much: not at all 4. Feeling tired or having little energy: not at all 5. Poor appetite or overeating: not at all 6. Feeling bad about yourself - or that you are a failure or have let yourself or your family down: not at all 7. Trouble concentrating on things, such as reading the newspaper or watching television: not at all 8. Moving or speaking so slowly that other people could have noticed. Or the opposite - being so fidgety or restless that you have been moving around a lot more than usual: not at all 9. Thoughts that you would be better off or of hurting yourself in some way: not at all Total score: 1 Depression Screening Interpretation: Positive Depression Screening Done: Yes Source: Developed by Drs. Sammy Cristobal, Yoli Vasquez, Thor Nash and colleagues, with an educational alexa from [employer]. Thrive Questionnaire Date Thrive assessed: 08/01/23 I am a: Patient What is your living situation today?: I have a steady place to live Within the past 12 months, did the food you bought not last and you didn't have the money to get more?: Never true Within the past 12 months, did you worry whether your food would run out before you got money to buy more?: Never true Do you have trouble paying for medicines?: No Do you have trouble getting transportation to medical appointments?: No Do you have trouble paying your heating and electricity bill?: No Do you have trouble taking care of your child, family member or friend?: No Do you have trouble with day-to-day activities such as bathing, preparing meals, shopping, managing finances, etc.?: No Are you currently unemployed and looking for a job?: No Are you interested in more education?: No Please select the resources that you would like help with: None THRIVE Score: 0 AUDIT C Alcohol Use Questionnaire (AUDIT-C) 1. How often do you have a drink containing alcohol?: 2-4 times a month 2. How many drinks containing alcohol do you have on a typical day when you are drinking?: 1 or 2 Total Score: 2 CHARLEY-7 AMB Questionnaire CHARLEY-7 Date CHARLEY - 7 assessed: 08/01/23 Feeling nervous, anxious, or on edge: 0 = Not at all Not being able to stop or control worryin = Not at all Worrying too much about different things: 0 = Not at all Trouble relaxin = Not at all Being so restless that it is hard to sit still: 0 = Not at all Becoming easily annoyed or irritable: 0 = Not at all Feeling afraid as if something awful might happen: 0 = Not at all Total CHARLEY-7 score (0-4 normal; 5-9 mild; 10-14 moderate; 15-21 severe): 0 Source: Developed by Drs. Sammy Cristobal, Yoli Vasquez, Thor Nash and colleagues, with an educational alexa from [employer]. Physical exam (Primary Care) Vital Signs: Last Vital Signs Pulse 82 08/01/23 14:37 BP 146/90 H 08/01/23 14:37 Pulse Ox 98 08/01/23 14:37 Oxygen Delivery Method Room Air 08/01/23 14:37 BMI result Body Mass Index 41.5 Tobacco/Smoking Status: Tobacco use Status Tobacco use date assessed 08/01/23 08/01/23 14:39 Patient Tobacco Use Status Former Tobacco user 08/01/23 14:39 Tobacco use type Cigarette 08/01/23 14:39 e-Cigarette/Vaping Use Never Used 08/01/23 14:39 PHQ-9: PHQ-9 Score PHQ-9: Total score 1 08/01/23 14:45 Depression Screening Interpretation: Positive Thrive Assessment: Date of Thrive Assessment Date Thrive assessed 08/01/23 08/01/23 14:39 Const General: alert; No acute distress Eyes Conjunctivae: conjunctivae normal Resp Auscultation: clear to auscultation bilaterally Cardio Rate: regular rate Rhythm: regular rhythm GI Inspection: Yes normal to inspection Extrem General: Yes normal to inspection and No edema Assessment and Plan Assessment & Plan (1) Morbid obesity: Code(s): E66.01 - Morbid (severe) obesity due to excess calories Plan: Diet and exercise (2) Obstructive sleep apnea: Comment: November 2021 Code(s): G47.33 - Obstructive sleep apnea (adult) (pediatric) Plan: Continue to use the CPAP more than 4 hours a night and benefits from this. (3) Hypothyroid: Code(s): E03.9 - Hypothyroidism, unspecified Plan: Continue with thyroid medication (4) Impaired glucose tolerance: Code(s): R73.02 - Impaired glucose tolerance (oral) Plan: Decrease the amount of carbohydrate intake, pasta, bread, rice and potatoes are all sugar and that is aside from all the sweet stuff, remember that fruits are good but they are Sweet also. (5) Hypercholesterolemia: Code(s): E78.00 - Pure hypercholesterolemia, unspecified Plan: Avoid fried foods, chicken skin, eggs, butter margarine, pastries and meat. Be it pork or beef they have a lot of cholesterol (6) Generalized anxiety disorder: Comment: Q 2 weeks counselling and therapy Code(s): F41.1 - Generalized anxiety disorder Plan: Continue with present medication. Orders: Orders Complete Blood Count Auto Diff 3 Months E03.9 - Hypothyroidism, unspecified Comprehensive Met. Panel 3 Months E03.9 - Hypothyroidism, unspecified Hemoglobin A1c 3 Months E03.9 - Hypothyroidism, unspecified Vitamin B12 and Folate 3 Months E03.9 - Hypothyroidism, unspecified Lipid Panel 3 Months E03.9 - Hypothyroidism, unspecified, E78.00 - Pure hypercholesterolemia, unspecified Free T4 (Free Thyroxine) 3 Months E03.9 - Hypothyroidism, unspecified Thyroid Stimulating Hormone 3 Months E03.9 - Hypothyroidism, unspecified Vitamin D 25-OH Total 3 Months E03.9 - Hypothyroidism, unspecified Medications: New tirzepatide (weight loss) (Zepbound) 2.5 mg (0.5 mL) subcut QWEEK 4 weeks 2 mL 0RF E66.01 - Morbid (severe) obesity due to excess calories Coding Level of Care Code Est Pt Level 4 (46834) Diagnoses Morbid obesity E66.01 Obstructive sleep apnea G47.33 Hypothyroid E03.9 Impaired glucose tolerance R73.02 Hypercholesterolemia E78.00 Generalized anxiety disorder F41.1
== END 2023-08-01 15:18 | disposition home or self-care (01) ==
PROVIDERS: PCP Internal Medicine; Visit Provider Internal Medicine
DX: R73.02 Impaired glucose tolerance (oral) (principal); G47.33 Obstructive sleep apnea (adult) (pediatric); E03.9 Hypothyroidism, unspecified; E78.00 Pure hypercholesterolemia, unspecified; F41.1 Generalized anxiety disorder
CPT/HCPCS: 99214

== ENCOUNTER 2023-12-03 07:37 | Outpatient (REF) | payer OTHER, SELFPAY ==
[2023-12-03 07:45] LABS: MANUAL DIFF FLAG NO
[2023-12-03 07:59] LABS: Basophils Percent Auto 0.5 % (0-2); Eosinophils Absolute Auto 0.1 X10*3/uL (0.0-0.4); Eosinophils Percent Auto 1.4 % (0-4); Hematocrit 37.8 % (37.0-47.0); Hemoglobin 13.1 g/dl (12.0-16.0); Imm Gran Abs Auto 0.03 X10*3/uL (0.00-0.03); Imm Gran Pct Auto 0.4 % (0.0-0.4); Lymphocytes Absolute Auto 2.2 X10*3/uL (1.2-4.9); Lymphocytes Percent Auto 26.8 % (20-40); Mean Corpuscular HGB Conc 34.7 g/dl (31.0-35.0); Mean Corpuscular Volume 92.4 fL (80.0-98.0); Monocytes Absolute Auto 0.4 X10*3/uL (0.1-1.2); Neutrophils Absolute Auto 5.4 x10*3/uL (2.0-8.3); Neutrophils Percent Auto 65.9 % (45-73); Platelet Count 292 X10*3/uL (160-400); Red Blood Count 4.09 X10*6/uL (4.20-5.50); Red Cell Distribution Width 13.5 % (11.0-16.0); White Blood Count 8.1 X10*3/uL (4.8-10.8)
[2023-12-03 08:10] LABS: Estimated Average Glucose 91 mg/dL; Hemoglobin A1c % 4.8 % (<6.0)
[2023-12-03 08:36] LABS: Parathyroid Hormone Intact 40.6 pg/mL (8.7-77.1)
[2023-12-03 08:42] LABS: Alanine Aminotransferase 16 U/L (0-31); Albumin Level 4.4 g/dL (3.5-5.0); Alkaline Phosphatase 56 U/L (39-117); Anion Gap 14 (12-20); Aspartate Amino Transferase 15 U/L (5-31); Bilirubin Total 0.2 mg/dL (0.0-1.0); Blood Urea Nitrogen 11 mg/dL (9-16); Calcium 9.9 mg/dL (8.4-10.2); Carbon Dioxide 25 mmol/L (22-29); Chloride 106 mmol/L (96-108); Cholesterol 160 mg/dL (<200); Estimated Glomerular Filt Rate 57; Glucose Random 92 mg/dL (60-115); HDL Cholesterol 42 mg/dL (>40); LDL Cholesterol Calculated 86 mg/dL (<100); Sodium 141 mmol/L (135-145); Total Protein 6.8 g/dL (6.5-8.0); Triglycerides 163 mg/dL (<150)
[2023-12-03 08:54] LABS: Free T4 (Free Thyroxine) 0.86 ng/dL (0.71-1.85); Thyroid Stimulating Hormone 2.98 uIU/mL (0.32-4.0); Vitamin D 25-OH Total 59.9 ng/mL (>30)
[2023-12-03 09:07] LABS: Folate 9.4 ng/mL (> or = 4.0); Vitamin B12 420 pg/mL (200-900)
== END 2023-12-03 07:38 | disposition home or self-care (01) ==
LOC: HO.LAB 07:37
PROVIDERS: PCP Internal Medicine; Visit Provider Internal Medicine
DX: E78.00 Pure hypercholesterolemia, unspecified (principal); E03.9 Hypothyroidism, unspecified; Z13.1 Encounter for screening for diabetes mellitus
CPT/HCPCS: 36415; 80053; 80061; 82306; 82607; 82746; 83036; 83970; 84439; 84443; 85025

== ENCOUNTER 2023-12-06 14:54 | Outpatient (AMB) | payer OTHER, SELFPAY ==
[2023-12-06 15:02] VITALS: BP 112/76; PULSE 60; O2SAT 98; BMI 37.1
--- NOTE | 2023-12-06 15:02 | A.OFFPC_ITS ---
Vital Signs 12/06/23 15:02 Height 5 ft 4 in Weight 216 lb 0.5 oz BMI 37.1 BP 112/76 Blood Pressure Location Lt brachial Position Sitting Pulse 60 Pulse Source Pulse Oximeter Pulse Oximetry (%) 98 Oxygen Delivery Method Room Air Intake Visit Reasons: For physical exam, obesity hypothyroid Allergies Sulfa (Sulfonamide Antibiotics) [Sulfa (Sulfonamides)] Allergy (Mild, Verified 12/06/23 15:07) RASH erythromycin base [From ERYTHROCIN] Allergy (Unknown, Verified 12/06/23 15:07) HIVES Medication List - Last Reconciled 12/06/23 by Brendon Avina MD [AUTOPAP mode 6-20 cm H2O humidified AIR As directed] bupropion HCl SR (Wellbutrin SR) 200 mg PO DAILY cholecalciferol (vitamin D3) 25 mcg PO DAILY fluoxetine 10 mg PO DAILY levonorgestrel (Mirena) 1 device intrauterine DIRECTED levothyroxine 50 mcg PO DAILY 90 days psyllium husk (Daily Fiber) 0.52 grams PO BEDTIME spironolactone 100 mg PO BID 90 days tirzepatide (weight loss) 5 mg (0.5 mL) subcut QWEEK 4 weeks Tobacco use date assessed: 12/06/23 Dental Screening Dental Screen Date: 08/01/23 Did you have a dental visit in the last 12 months?: Yes Did you have a dental problem in the last 6 months where you did not have access to dental care?: No Was dental information given to patient?: Patient has dentist HPI For physical exam, obesity hypothyroid HPI Details 48-year-old obese female with obstructiv e sleep apnea hypothyroidism impaired glucose tolerance hypercholesterolemia and generalized anxiety disorder coming in for physical exam last seen in July 2023. Noted 26 lb weight loss. Mammogram is up-to-date colonoscopy up-to-date. [facility] Medical History (Updated 08/01/23 @ 15:01 by Brendon Avina MD) Family history of colon cancer Polycystic ovarian syndrome Asthma Obsessive compulsive disorder History of renal calculi Cholelithiasis Hypothyroid Recurrent major depression Obesity (BMI 30-39.9) Surgical History History of colonoscopy H/O abdominal surgery History of ankle surgery History of section Family History Father Cancer Renal cancer Myocardial infarct Lymphoma Mother No problems noted. Sister No problems noted. Sister No problems noted. Son No problems noted. Maternal Grandmother Colon cancer Other Mental health disorder Social History (Updated 12/06/23 @ 15:30 by Brendon Avina MD) Housing: House Alcohol intake: current Alcohol intake frequency: a few times a month Comment: once Q 2 week 1 drinks Patient Tobacco Use Status: Former Tobacco user Tobacco use type: Cigarette Years Smoked: Quit 2015 e-Cigarette/Vaping Use: Never Used Second Hand Smoke Exposure: No service: No Current occupational status: employed Cognitive needs: No Hearing needs: No Vision needs: No Questionnaire PHQ-9 Over the last 2 weeks, how often have you been bothered by any of the following problems? 1. Little interest or pleasure in doing things: not at all 2. Feeling down, depressed, or hopeless: several days 3. Trouble falling or staying asleep, or sleeping too much: not at all 4. Feeling tired or having little energy: not at all 5. Poor appetite or overeating: not at all 6. Feeling bad about yourself - or that you are a failure or have let yourself or your family down: not at all 7. Trouble concentrating on things, such as reading the newspaper or watching television: not at all 8. Moving or speaking so slowly that other people could have noticed. Or the opposite - being so fidgety or restless that you have been moving around a lot more than usual: not at all 9. Thoughts that you would be better off or of hurting yourself in some way: not at all Total score: 1 Depression Screening Interpretation: Positive Depression Screening Done: Yes Source: Developed by Drs. Sammy Cristobal, Yoli Vasquez, Thor Nash and colleagues, with an educational alexa from [employer]. Thrive Questionnaire Date Thrive assessed: 12/06/23 I am a: Patient What is your living situation today?: I have a steady place to live Within the past 12 months, did the food you bought not last and you didn't have the money to get more?: Never true Within the past 12 months, did you worry whether your food would run out before you got money to buy more?: Never true Do you have trouble paying for medicines?: No Do you have trouble getting transportation to medical appointments?: No Do you have trouble paying your heating and electricity bill?: No Do you have trouble taking care of your child, family member or friend?: No Do you have trouble with day-to-day activities such as bathing, preparing meals, shopping, managing finances, etc.?: No Are you currently unemployed and looking for a job?: No Are you interested in more education?: No Please select the resources that you would like help with: None THRIVE Score: 0 AUDIT C Alcohol Use Questionnaire (AUDIT-C) 1. How often do you have a drink containing alcohol?: 2-4 times a month 2. How many drinks containing alcohol do you have on a typical day when you are drinking?: 1 or 2 Total Score: 2 CHARLEY-7 AMB Questionnaire CHARLEY-7 Date HCARLEY - 7 assessed: 12/06/23 Feeling nervous, anxious, or on edge: 0 = Not at all Not being able to stop or control worryin = Not at all Worrying too much about different things: 0 = Not at all Trouble relaxin = Not at all Being so restless that it is hard to sit still: 0 = Not at all Becoming easily annoyed or irritable: 0 = Not at all Feeling afraid as if something awful might happen: 0 = Not at all Total CHARLEY-7 score (0-4 normal; 5-9 mild; 10-14 moderate; 15-21 severe): 0 Source: Developed by Drs. Sammy Cristobal, Yoli Vasquez, Thor Nash and colleagues, with an educational alexa from [employer]. Review of Systems Const Denies poor appetite and Denies weakness Eyes Denies no additional complaints ENT Reports Normal hearing present, Denies dizziness, Denies nasal congestion, Denies tinnitus and Denies sore throat Card Denies chest pain, Denies syncope, Denies rapid heart rate and Denies dyspnea Resp Denies cough and Denies dyspnea GI Denies change in stool character, Reports constipation, Denies diarrhea, Denies nausea and Denies vomiting Denies urinary frequency, Denies difficulty voiding and Denies dysuria Neuro Reports Normal hearing present, Denies confusion, Denies dizziness, Denies syncope and Denies weakness Psych Denies confusion Physical exam (Primary Care) Vital Signs: Last Vital Signs Pulse 60 12/06/23 15:02 BP 112/76 12/06/23 15:02 Pulse Ox 98 12/06/23 15:02 Oxygen Delivery Method Room Air 12/06/23 15:02 BMI result Body Mass Index 37.1 Tobacco/Smoking Status: Tobacco use Status Tobacco use date assessed 12/06/23 12/06/23 15:07 Patient Tobacco Use Status Former Tobacco user 12/06/23 15:07 Tobacco use type Cigarette 12/06/23 15:07 e-Cigarette/Vaping Use Never Used 12/06/23 15:07 PHQ-9: PHQ-9 Score PHQ-9: Total score 1 12/06/23 15:07 Depression Screening Interpretation: Positive Thrive Assessment: Date of Thrive Assessment Date Thrive assessed 12/06/23 12/06/23 15:07 Const General: No confusion Orientation/consciousness: No confusion HENMT Head: Yes normocephalic Ears: external ears normal and TM's normal bilaterally Face and sinus: Yes normal facial exam Mouth: moist mucous membranes Throat: Yes tonsils normal Eyes Conjunctivae: conjunctivae normal Pupils: Equal, round and reactive pupils present and Pupil accommodation reflex normal Direct Ophthalmoscopy: normal light reflex Neck Neck: No lymphadenopathy Thyroid: Thyroid normal Chest Chest palpation & inspection: normal inspection of the chest Resp Effort & Inspection: normal respiratory effort and no audible wheezes Auscultation: clear to auscultation bilaterally, no crackles, no wheezes and lung sounds not diminished Cardio Rate: regular rate Rhythm: regular rhythm Peripheral pulses: radial pulses present and dorsalis pedis present GI Palpation (GI): no masses Auscultation: normal bowel sounds and normoactive bowel sounds Rectal Exam - Female: deferred Skin General skin exam: no rashes or lesions noted Rashes: no rashes Neuro General: No confusion Cranial nerves: Yes Equal, round and reactive pupils present and Yes Normal hearing present Cognition (Neuro): normal cognition Gait exam (Neuro): Normal gait present Motor exam (neuro): 5/5 motor strength present throughout Deep tendon reflexes (DTR's): Right brachioradialis reflex intensity grade: 2+, Left brachioradialis reflex intensity grade: 2+, Right patellar reflex intensity grade: 2+ and Left patellar reflex intensity grade: 2+ Extrem General: No edema Assessment and Plan Assessment & Plan (1) Annual physical exam: Code(s): Z00.00 - Encounter for general adult medical examination without abnormal findings Plan: Patient is advised to eat healthy, keep well hydrated, keep active and have adequate sleep. (2) Obesity (BMI 30-39.9): Code(s): E66.9 - Obesity, unspecified Plan: Continue with diet and exercise and continue with Zepbound (3) Obstructive sleep apnea: Comment: November 2021 Code(s): G47.33 - Obstructive sleep apnea (adult) (pediatric) Plan: Continue to use the CPAP more than 4 hours a night and benefits from this. (4) Hypercholesterolemia: Code(s): E78.00 - Pure hypercholesterolemia, unspecified Plan: Avoid fried foods, chicken skin, eggs, butter margarine, pastries and meat. Be it pork or beef they have a lot of cholesterol LDL goal of less than 130 and triglyceride of less than 150 (5) Impaired glucose tolerance: Code(s): R73.02 - Impaired glucose tolerance (oral) Plan: Decrease the amount of carbohydrate intake, pasta, bread, rice and potatoes are all sugar and that is aside from all the sweet stuff, remember that fruits are good but they are Sweet also. (6) Generalized anxiety disorder: Comment: Q 2 weeks counselling and therapy Code(s): F41.1 - Generalized anxiety disorder Plan: Continue with Wellbutrin, fluoxetine (7) Hypothyroid: Code(s): E03.9 - Hypothyroidism, unspecified Plan: Continue with thyroid medication Medications: Changed From tirzepatide (weight loss) 5 mg (0.5 mL) subcut QWEEK 4 weeks 2 mL 0RF E66.01 - Morbid (severe) obesity due to excess calories To tirzepatide (weight loss) 7.5 mg (0.5 mL) subcut QWEEK 4 weeks 2 mL 2RF E66.01 - Morbid (severe) obesity due to excess calories Coding Level of Care Code Est Pt Prev Care 40-64y(00185) Diagnoses Annual physical exam Z00.00 Obesity (BMI 30-39.9) E66.9 Obstructive sleep apnea G47.33 Hypercholesterolemia E78.00 Impaired glucose tolerance R73.02 Generalized anxiety disorder F41.1 Hypothyroid E03.9
== END 2023-12-06 16:33 | disposition home or self-care (01) ==
PROVIDERS: PCP Internal Medicine; Visit Provider Internal Medicine
DX: Z00.00 Encounter for general adult medical examination without abnormal findings (principal); E66.9 Obesity, unspecified; G47.33 Obstructive sleep apnea (adult) (pediatric); Z68.37 Body mass index [BMI] 37.0-37.9, adult; E78.00 Pure hypercholesterolemia, unspecified; R73.02 Impaired glucose tolerance (oral); F41.1 Generalized anxiety disorder; E03.9 Hypothyroidism, unspecified
CPT/HCPCS: 99396

== ENCOUNTER 2024-01-21 15:05 | Outpatient (REF) | payer OTHER, SELFPAY ==
[2024-01-22 06:23] LABS: CT PCR NOT DETECTED (Not Detect.); NG PCR NOT DETECTED (Not Detect.)
[2024-01-22 10:34] LABS: Bacterial Vaginosis PCR NEGATIVE (Negative); Candida Group PCR NOT DETECTED (Not Detect); Candida glab krusei PCR NOT DETECTED (Not Detect); Trichomonas vaginalis PCR NOT DETECTED (Not Detect)
[2024-01-24 15:18] LABS: HPV mRNA E6/E7 Not Detected (Not Detected)
== END 2024-01-21 15:06 | disposition home or self-care (01) ==
LOC: HO.LAB 15:05
PROVIDERS: PCP Internal Medicine; Visit Provider Advanced Practice Midwife
DX: N89.8 Other specified noninflammatory disorders of vagina (principal); Z20.2 Contact with and (suspected) exposure to infections with a predominantly sexual mode of transmission
CPT/HCPCS: 0352U; 36415; 87491; 87591; 87624; 88175

== ENCOUNTER 2024-01-21 15:05 | Outpatient (AMB) | payer OTHER, SELFPAY ==
[2024-01-21 15:13] VITALS: BP 116/70; BMI 35.0
--- NOTE | 2024-01-21 15:13 | MHC.OFFVIS ---
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 Present Allergies Sulfa (Sulfonamide Antibiotics) [Sulfa (Sulfonamides)] Allergy (Mild, Verified 01/21/24 15:14) RASH erythromycin base [From ERYTHROCIN] Allergy (Unknown, Verified 01/21/24 15:14) HIVES Medication List - Last Reconciled 01/21/24 by Naty Cheney CNM [AUTOPAP mode 6-20 cm H2O humidified AIR As directed] bupropion HCl SR (Wellbutrin SR) 200 mg PO DAILY cholecalciferol (vitamin D3) 25 mcg PO DAILY fluoxetine 10 mg PO DAILY levonorgestrel (Mirena) 1 device intrauterine DIRECTED levothyroxine 50 mcg PO DAILY 90 days psyllium husk (Daily Fiber) 0.52 grams PO BEDTIME spironolactone 100 mg PO BID 90 days tirzepatide (weight loss) 7.5 mg (0.5 mL) subcut QWEEK 4 weeks Is last menstrual period known: No (IUD) Do you need a note to return to daycare/school/sports/work: No HPI HPI 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 She thought her last Pap smear might of been maybe 3 years ago but she is actually not 100% sure because she thought that Paps were done every year and she is not entirely certain. She does not think she ever had an abnormal 1. She made this appointment especially because she wants to talk about her Mirena she believes is been in between 5-6 years closer to 6. This was her 2nd 1 from the time it was inserted soon after giving 15 years ago she never had a period but she just started getting periods again she is not really having any symptoms of menopause either. Her menses came complete with cramping and lasted 5-6 days beginning of December though it was a light one. She very much wants to talk about replacing her Mirena so that she does not get . her son is 15 years old now. She has been taking Zetia about to help her with weight loss and has lost 45 lb since she started in the spring. 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 [facility] Medical History (Updated 01/21/24 @ 16:07 by Naty Cheney CNM) Family history of colon cancer Polycystic ovarian syndrome Asthma Obsessive compulsive disorder History of renal calculi Cholelithiasis Hypothyroid Recurrent major depression Obesity (BMI 30-39.9) Surgical History History of colonoscopy H/O abdominal surgery History of ankle surgery History of section Family History Father Cancer Renal cancer Myocardial infarct Lymphoma Mother No problems noted. Sister No problems noted. Sister No problems noted. Son No problems noted. Maternal Grandmother Colon cancer Other Mental health disorder Social History Housing: House Alcohol intake: current Alcohol intake frequency: a few times a month Comment: once Q 2 week 1 drinks Patient Tobacco Use Status: Former Tobacco user Tobacco use type: Cigarette Years Smoked: Quit 2015 e-Cigarette/Vaping Use: Never Used Second Hand Smoke Exposure: No service: No Current occupational status: employed Cognitive needs: No Hearing needs: No Vision needs: No Female Reproductive History Menstrual Age of Menarche: 11 Duration of menses: 3-5 days control method: progestin IUCD Total pregnancies: 1 Full term: 1 Date of last pap smear: 06/10/22 (negative ,per patient) History of abnormal pap smear: No Date of Mammogram: 08/26/23 (negative) Physical Exam Vital Signs: Last Vital Signs BP 116/70 01/21/24 15:13 BMI result Body Mass Index 35.0 Const General: healthy appearing, comfortable, no acute distress, well developed and alert Nutritional Appearance: average body habitus Orientation/consciousness: patient oriented x3 Limitations: no limitations HEENT Head: Yes normocephalic Neck Neck: Yes normal visual inspection Chest Chest palpation & inspection: normal inspection of the chest Breast/axilla inspection: normal inspection of the breasts and normal inspection of the axillae Breast/axilla palpation: normal palpation of the breasts and normal palpation of the axillae Resp Effort & Inspection: normal respiratory effort GI Inspection: Yes normal to inspection, No Abdominal wall edema and No distended Palpation (GI): Soft to palpation and nontender Other: Limits vagina pink and moist yellowish white clear discharge. Cervix multiparous pink smooth friable with Pap Mirena string clearly visible in os.. Cervix mobile nontender uterus mobile nontender size difficult to palpate secondary to adipose adnexa nontender extremely good tone with Kegel. General: Yes bladder normal to palpation External Female Exam: normal external appearance and normal appearance of the urethra Speculum Exam - Vagina: normal appearance of the vagina, normal palpation and normal vaginal discharge Speculum Exam - Cervix: normal appearance of the cervix, normal palpation and nontender Bimanual exam- vagina & uterus: normal bimanual exam, normal palpation, uterine size normal, bladder normal to palpation, consistency normal, normal palpation, uterine mobility normal, uterine shape normal, No Cervical tenderness present, non-tender and no cervical motion tenderness Bimanual Exam- Adnexa, other: normal adnexae, no masses, normal and No adnexal tenderness Neuro General: patient oriented x3 Assessment & Plan Assessment & Plan (1) Cervical cancer screening: Code(s): Z12.4 - Encounter for screening for malignant neoplasm of cervix Category: Medical (2) Obesity (BMI 30-39.9): Comment: Is losing weight with Zepbound Code(s): E66.9 - Obesity, unspecified Category: Medical (3) Presence of 52 mg levonorgestrel-releasing intrauterine device (IUD): Comment: Believes it in for between 5 and 6 years just started getting her period back is very clear that she does not want to have a baby at this stage of her life we will plan for replacement at next visit, with pre procedure misoprostol Code(s): Z97.5 - Presence of (intrauterine) contraceptive device Category: Social Hx Plan -----Discussed in this visit the following: healthy balanced diet, regular and consistent exercise, getting recommended health screens, doing the best she can for her particular health concerns, kegel exercises, pap smear screening and followup recommendations, mammography screening and SBE, normal changes in cycles in her life stage--- . Discussed her history with the IUD and length of time she believes it has been in she is very much wanting to ensure that she does not get at this stage of her life. She just recently started back with her. The beginning of December at lasted about 5-6 days and it was complete with cramping though it was not as heavy as pre Mirena and pre childbirth menses Discussed the new length of time that Mirena can used, 5 years for abnormal bleeding, 8 years for contraception, but she is absolutely clear that she has does not want to take a chance and just hope, that if her period does not come, that she is not at this stage of her life. She would like it replaced and be sure. Discussed her labor history she had a though she did dilate to 9 cm. Given that because it has been 15 years I did offer her pre procedure misoprostol to place in her vagina about 6 hours before insertion to aid in the cramping and softening of her cervix. She is in agreement with this plan and it was sent to her pharmacy locally here in [place] we will plan for removal and insertion with the next possible visit. If she did have her menses that would be a perfect opportune time but that maybe difficult to schedule. Orders: Orders CT NG by PCR Today N89.8 - Other specified noninflammatory disorders of vagina, Z20.2 - Contact with and (suspected) exposure to infections with a predominantly sexual mode of transmission Bacterial Vaginosis Panel Today N89.8 - Other specified noninflammatory disorders of vagina PAP + HPV E6/E7 rfx 18/45 Today Z00.00 - Encounter for general adult medical examination without abnormal findings Medications: New misoprostol Place in vagina within 6 hours prior to planned IUD procedure 200 mcg vaginal ONCE [address] in vagina within 6 hours prior to planned IUD procedure 200 mcg vaginal ONCE 1 tab 0RF Coding Level of Care Code New Pt Prev Care 40-64y(31536) Diagnoses Cervical cancer screening Z12.4 Obesity (BMI 30-39.9) E66.9 Presence of 52 mg levonorgestrel-releasing intrauterine device (IUD) Z97.5
== END 2024-01-21 16:01 | disposition home or self-care (01) ==
LOC: HO.HWSM 15:05
PROVIDERS: PCP Internal Medicine; Visit Provider Advanced Practice Midwife
DX: Z01.419 Encounter for gynecological examination (general) (routine) without abnormal findings (principal); E66.9 Obesity, unspecified; Z68.35 Body mass index [BMI] 35.0-35.9, adult; Z97.5 Presence of (intrauterine) contraceptive device
CPT/HCPCS: 99386

== ENCOUNTER 2024-03-12 12:46 | Outpatient (AMB) | payer OTHER, SELFPAY ==
[2024-03-12 13:13] VITALS: BP 112/78; BMI 32.8
--- NOTE | 2024-03-12 13:13 | MHC.OFFVIS ---
Vital Signs 03/12/24 13:13 Height 5 ft 4 in Weight 191 lb BMI 32.8 BP 112/78 Intake Visit Reasons: Mirena exchange Information Interpreted: clinical only Allergies Sulfa (Sulfonamide Antibiotics) [Sulfa (Sulfonamides)] Allergy (Mild, Verified 03/12/24 13:13) RASH erythromycin base [From ERYTHROCIN] Allergy (Unknown, Verified 03/12/24 13:13) HIVES Medication List - Last Reconciled 03/12/24 by Naty Cheney CNM [AUTOPAP mode 6-20 cm H2O humidified AIR As directed] bupropion HCl SR (Wellbutrin SR) 200 mg PO DAILY cholecalciferol (vitamin D3) 25 mcg PO DAILY fluoxetine 10 mg PO DAILY levonorgestrel (Mirena) 1 device intrauterine DIRECTED levothyroxine 50 mcg PO DAILY 90 days misoprostol 200 mcg vaginal ONCE psyllium husk (Daily Fiber) 0.52 grams PO BEDTIME spironolactone 100 mg PO BID 90 days tirzepatide (weight loss) 10 mg (0.5 mL) subcut QWEEK 1 month Is last menstrual period known: Yes Last menstrual period: 02/07/24 HPI HPI Mirena exchange: Details: Reviewed patient history with the Mirena and her strong desire to not have to change of life baby at this stage of her life. Her last 2 menses or 3 have been very very light and spotting she is getting some more acne in the last couple of days which is an indication that she is premenstrual but she has not gotten menses yet this was originally scheduled with her last menses however this provider was out and unable to be here so it was rescheduled she did place the misoprostol early this morning about 6 hours prior to the appointment and she is feeling some cramping that has been happening more with the last couple of hours. She does not have any questions though she does remember that the last Mirena insertion did her so she is anticipating that and she did bring book on tape to listen to however the chapter is just up to apart where a women is in labor so she thinks she will not was into that while she is having her Mirena removed and inserted [facility] Medical History Family history of colon cancer Polycystic ovarian syndrome Asthma Obsessive compulsive disorder History of renal calculi Cholelithiasis Hypothyroid Recurrent major depression Obesity (BMI 30-39.9) Surgical History History of colonoscopy H/O abdominal surgery History of ankle surgery History of section Family History Father Cancer Renal cancer Myocardial infarct Lymphoma Mother No problems noted. Sister No problems noted. Sister No problems noted. Son No problems noted. Maternal Grandmother Colon cancer Other Mental health disorder Social History Housing: House Alcohol intake: current Alcohol intake frequency: a few times a month Comment: once Q 2 week 1 drinks Patient Tobacco Use Status: Former Tobacco user Tobacco use type: Cigarette Years Smoked: Quit 2015 e-Cigarette/Vaping Use: Never Used Second Hand Smoke Exposure: No service: No Current occupational status: employed Cognitive needs: No Hearing needs: No Vision needs: No Female Reproductive History Menstrual Age of Menarche: 11 Duration of menses: <3 days Date of last menstrual period: 02/07/24 control method: progestin IUCD Total pregnancies: 1 Physical Exam Vital Signs: Last Vital Signs BP 112/78 03/12/24 13:13 BMI result Body Mass Index 32.8 External Female Exam: normal external appearance Speculum Exam - Vagina: normal appearance of the vagina and normal vaginal discharge Speculum Exam - Cervix: normal appearance of the cervix Bimanual exam- vagina & uterus: normal bimanual exam, uterine size normal, consistency normal, uterine mobility normal, uterine shape normal and non-tender Bimanual Exam- Adnexa, other: normal adnexae, no masses and No adnexal tenderness Office Procedures IUD Insert/Removal Details Details: ---Patient is here for her IUD removal and insertion. Full discussion of expectations has taken place adding the expectation that she may have irregular bleeding for some unknown period of time are not inserting it with her menses and there is no way to tell how the will affect future bleeding. Bimanual exam was done. Her uterus is firm, nontender, and appropriate sized, and is midposition to anteverted, and slightly tilted/oriented to patient's left. She says this is what she was told is the way her uterus was before. . Speculum was placed. The IUD strings were grasped with ring forceps, and as patient coughed the IUD was removed easily with 1 tug. ---The cervix was cleaned with Betadine. Tenaculum was placed on the cervix slowly to minimize cramping. The uterus was sounded slowly and gently, she showed a measurement of 7 3/4 cm. The IUD was removed from its package, after checking identifying information and lot dates and expiration dates and and gently inserted into the os, as per the IUD insertion procedure. The strings were then trimmed to 3-4 centimetres. The tenaculum was removed and gentle pressure applied with a swab, until any bleeding subsided from the tenaculum sites. The speculum was gently removed. The patient sat up. I Reviewed what to expect, and what indications would necessitate a call. Pt to call for fever, untoward pain or cramping. I reviewed any appropriate backup method. Pt to return for recheck as scheduled. 02040-SAL Insertion 38733-VUO Removal Procedure code (CPT) selection complete Office Meds Mirena 21 mcg/24 hr (up to 8 years) 52 mg intrauterine device Performing Provider: Naty Cheney CNM Performing [facility] Administered by: Stacie Petty CMA on 03/12/24 14:02 Dose Route Admin Location Dispensed Lot Number Expiration Date [facility] Vending Machine Coin [employer]or 1 device intrauterine 1 ea [id number] 04/18/26 Results AMB Test Urine AMB Test Urine Negative Last Edit by Stacie Petty CMA on 03/12/24 13:55 Assessment & Plan Assessment & Plan (1) Presence of 52 mg levonorgestrel-releasing intrauterine device (IUD): Comment: Believes it in for between 5 and 6 years just started getting her period back is very clear that she does not want to have a baby at this stage of her life we will plan for replacement at next visit, with pre procedure misoprostol; Mirena removed and replaced 03/12/2024. Code(s): Z97.5 - Presence of (intrauterine) contraceptive device Category: Social Hx (2) Cervical cancer screening: Comment: 01/21/2024 Pap is negative with negative HPV. Code(s): Z12.4 - Encounter for screening for malignant neoplasm of cervix Category: Medical (3) Morbid obesity: Comment: Is losing weight with Zepbound. Code(s): E66.01 - Morbid (severe) obesity due to excess calories Category: Medical (4) Encounter for removal and reinsertion of intrauterine contraceptive device (IUD): Code(s): Z30.433 - Encounter for removal and reinsertion of intrauterine contraceptive device Category: Medical Plan Patient tolerated removal and placement of the IUD quite well it was painful it did cause her cramping but she was able to tolerate it and got through procedure. She had the sit might away that she had some cramping. Reviewed that if there is any very severe untoward cramping pain or other symptoms she should seek care or call.. Reviewed again that we did not insert the new 1 with menses anything possible side effect patterns but this has already scheduled so she wanted to proceed and did so. We can see her in 6 weeks for post IUD check if she in fact is having absolutely no problems whatsoever and doing very well with it and does not feel she seen it is acceptable to have a tele visit for that day if there any issues to discuss or check then I would want to see her and I will leave this decision to up to her. Orders: Orders AMB HCG Urine Test Today Z32.02 - Encounter for test, result negative AMB IUD Insertion/Removal - Practice Supplied Today Z30.430 - Encounter for insertion of intrauterine contraceptive device Coding Level of Care Code Est Pt Level 3 (69228) Diagnoses Presence of 52 mg levonorgestrel-releasing intrauterine device (IUD) Z97.5 Cervical cancer screening Z12.4 Morbid obesity E66.01 Encounter for removal and reinsertion of intrauterine contraceptive device (IUD) Z30.433 CPT Codes Details - CPT: 48859-GGV Insertion ([id number]) Details - CPT: 05617-JXC Removal ([id number])
== END 2024-03-12 14:01 | disposition home or self-care (01) ==
PROVIDERS: PCP Internal Medicine; Visit Provider Advanced Practice Midwife
DX: Z30.433 Encounter for removal and reinsertion of intrauterine contraceptive device (principal); E66.01 Morbid (severe) obesity due to excess calories; Z32.02 Encounter for pregnancy test, result negative
CPT/HCPCS: 58300; 58301

== ENCOUNTER → 2024-03-12 12:46 | Outpatient (BNVA) | payer OTHER, SELFPAY | PROVIDERS: PCP Internal Medicine; Visit Provider Advanced Practice Midwife | DX: Z30.433 Encounter for removal and reinsertion of intrauterine contraceptive device (principal); E66.01 Morbid (severe) obesity due to excess calories; Z68.32 Body mass index [BMI] 32.0-32.9, adult | CPT/HCPCS: 58300; 58301; 81025; J7298 ==

== ENCOUNTER 2024-04-23 13:23 | Outpatient (AMB) | payer OTHER, SELFPAY ==
--- NOTE | 2024-04-23 13:24 | A.OFFVIS_ITS ---
Intake Visit Reasons: Mirena check up ([phone]) Allergies Sulfa (Sulfonamide Antibiotics) [Sulfa (Sulfonamides)] Allergy (Mild, Verified 04/23/24 13:24) RASH erythromycin base [From ERYTHROCIN] Allergy (Unknown, Verified 04/23/24 13:24) HIVES Medication List - Last Reconciled 04/23/24 by Naty Cheney CNM [AUTOPAP mode 6-20 cm H2O humidified AIR As directed] bupropion HCl SR (Wellbutrin SR) 200 mg PO DAILY cholecalciferol (vitamin D3) 25 mcg PO DAILY fluoxetine 10 mg PO DAILY levonorgestrel (Mirena) 1 device intrauterine DIRECTED levothyroxine 50 mcg PO DAILY 90 days misoprostol 200 mcg vaginal ONCE psyllium husk (Daily Fiber) 0.52 grams PO BEDTIME spironolactone 100 mg PO BID 90 days tirzepatide (weight loss) 10 mg (0.5 mL) subcut QWEEK 1 month Is last menstrual period known: No (IUD) HPI HPI Mirena check up ([phone]): Details: This visit is To discuss how patient is doing with her Mirena IU S. her Mirena IU S was replaced at her 03/12/2024 visit. That visit and re insertion went very well, and because patient had experience with Mirena, decision was made to offer this visit as a tele visit if the patient was having absolutely no difficulty whatsoever with the Mirena. [facility] Medical History Family history of colon cancer Polycystic ovarian syndrome Asthma Obsessive compulsive disorder History of renal calculi Cholelithiasis Hypothyroid Recurrent major depression Obesity (BMI 30-39.9) Surgical History History of colonoscopy H/O abdominal surgery History of ankle surgery History of section Family History Father Cancer Renal cancer Myocardial infarct Lymphoma Mother No problems noted. Sister No problems noted. Sister No problems noted. Son No problems noted. Maternal Grandmother Colon cancer Other Mental health disorder Social History Housing: House Alcohol intake: current Alcohol intake frequency: a few times a month Comment: once Q 2 week 1 drinks Patient Tobacco Use Status: Former Tobacco user Tobacco use type: Cigarette Years Smoked: Quit 2015 e-Cigarette/Vaping Use: Never Used Second Hand Smoke Exposure: No service: No Current occupational status: employed Cognitive needs: No Hearing needs: No Vision needs: No Female Reproductive History Menstrual Age of Menarche: 11 Duration of menses: other control method: progestin IUCD Total pregnancies: 1 Full term: 1 History of abnormal pap smear: No (2022 neg.per patient) Telehealth Telehealth Telehealth Platform: Telephone Location of provider rendering services: practice address Location of patient: address on file Patient Identification confirmed using: Name, : Yes Telehealth method: voice only Patient verbally consented to treatment: Yes Patient verbally consented to billing insurance company: Yes Patient informed of any privacy concerns related to visit: Yes Minutes spent on Phone/Video with Pt.: 3 (2 cr/3 speaking w pt/5 charting) Results Reviewed Results Reviewed: Her Pap smear done 01/21/2024 was negative with negative HPV sent to [facility] so it is not filed under pathology. Assessment & Plan Assessment & Plan (1) Presence of 52 mg levonorgestrel-releasing intrauterine device (IUD): Comment: Believes it was in for between 5 and 6 years just started getting her period back is very clear that she does not want to have a baby at this stage of her life we will plan for replacement at next visit, with pre procedure misoprostol; Mirena removed and replaced 03/12/2024. Code(s): Z97.5 - Presence of (intrauterine) contraceptive device Category: Social Hx Plan I reviewed how she is doing since this Mirena was placed she is not having any bleeding or any problems at all she has had sex with it in with have been no difficulties whatsoever. She says it is like it isn't there she does not normally check for the strings so has not attempted to. Discussed her past Pap smear in her past history we will see her next year for full annual exam and check on the Mirena her Pap smear would be due in 5 years them the January 2024. She knows that she can call for difficulty and we will see her next year. Coding Level of Care Code Tele Est Pt Level 3 (52549) Diagnoses Presence of 52 mg levonorgestrel-releasing intrauterine device (IUD) Z97.5 Time Spent (min) 10
== END 2024-04-23 14:07 | disposition home or self-care (01) ==
LOC: HO.HWSM 13:24
PROVIDERS: PCP Internal Medicine; Visit Provider Advanced Practice Midwife
DX: Z97.5 Presence of (intrauterine) contraceptive device (principal)
CPT/HCPCS: 99213

== ENCOUNTER 2024-05-27 08:18 | Outpatient (AMB) | payer OTHER, SELFPAY ==
[2024-05-27 08:28] VITALS: BP 122/70; PULSE 81; O2SAT 99; BMI 31.9
--- NOTE | 2024-05-27 08:28 | MHC.PC.OV ---
Vital Signs 05/27/24 08:28 Height 5 ft 4 in Weight 186 lb BMI 31.9 BP 122/70 Blood Pressure Location Lt brachial Position Sitting Pulse 81 Pulse Source Pulse Oximeter Pulse Oximetry (%) 99 Oxygen Delivery Method Room Air Intake Visit Reasons: Resched from 04/10: CHARLEY, MEI, Menopause, Hemorrhoids Allergies Sulfa (Sulfonamide Antibiotics) [Sulfa (Sulfonamides)] Allergy (Mild, Verified 05/27/24 08:29) RASH erythromycin base [From ERYTHROCIN] Allergy (Unknown, Verified 05/27/24 08:29) HIVES Tobacco use date assessed: 05/27/24 Dental Screening Dental Screen Date: 05/27/24 Did you have a dental visit in the last 12 months?: Yes Did you have a dental problem in the last 6 months where you did not have access to dental care?: No Was dental information given to patient?: Patient has dentist HPI Resched from 04/10: CHARLEY, MEI HPI Details The patient is a 48-year-old female presenting with worsening hemorrhoids and hair loss. She reports long-standing issues with hemorrhoids, which have become increasingly uncomfortable and are now associated with bleeding. The constipation persists despite fiber supplementation, and she occasionally uses x-lax to manage symptoms. Previous medical history indicates polycystic ovary syndrome treated with spironolactone, resulting in reduced cystic acne. She experiences no nausea with terzapatide and reports weight loss. Recent lab tests show mild triglyceride elevation, but normal renal function except for some levels of concern regarding increased creatinine. She reported no increased energy with CPAP use but noted less daytime somnolence. Her hair loss began months ago with significant hair thinning. Having replaced her Mirena device under suspicion it might contribute; hair loss persists. The patient is on levothyroxine for thyroid management with historical blood work showing normal levels but is due for a repeat test. Current medications include bupropion, fluoxetine, spironolactone, and terzapatide. She admits to inadequate water intake, possibly exacerbating renal and gastrointestinal issues. She intends to increase fluid intake, particularly because of kidney stone history. No recent vaccinations for flu or COVID-19 reported. [facility] Medical History (Updated 05/27/24 @ 08:52 by Brendon Avina MD) Colon cancer screening Family history of colon cancer Polycystic ovarian syndrome Asthma Obsessive compulsive disorder History of renal calculi Cholelithiasis Hypothyroid Recurrent major depression Obesity (BMI 30-39.9) Surgical History History of colonoscopy H/O abdominal surgery History of ankle surgery History of section Family History Father Cancer Renal cancer Myocardial infarct Lymphoma Mother No problems noted. Sister No problems noted. Sister No problems noted. Son No problems noted. Maternal Grandmother Colon cancer Other Mental health disorder Social History Housing: House Alcohol intake: current Alcohol intake frequency: a few times a month Comment: once Q 2 week 1 drinks Patient Tobacco Use Status: Former Tobacco user Tobacco use type: Cigarette Years Smoked: Quit 2015 e-Cigarette/Vaping Use: Never Used Second Hand Smoke Exposure: No service: No Current occupational status: employed Cognitive needs: No Hearing needs: No Vision needs: No Female Reproductive History Menstrual Age of Menarche: 11 Questionnaire PHQ-9 Over the last 2 weeks, how often have you been bothered by any of the following problems? 1. Little interest or pleasure in doing things: not at all 2. Feeling down, depressed, or hopeless: several days 3. Trouble falling or staying asleep, or sleeping too much: not at all 4. Feeling tired or having little energy: not at all 5. Poor appetite or overeating: not at all 6. Feeling bad about yourself - or that you are a failure or have let yourself or your family down: not at all 7. Trouble concentrating on things, such as reading the newspaper or watching television: not at all 8. Moving or speaking so slowly that other people could have noticed. Or the opposite - being so fidgety or restless that you have been moving around a lot more than usual: not at all 9. Thoughts that you would be better off or of hurting yourself in some way: not at all Total score: 1 Depression Screening Interpretation: Positive Depression Screening Done: Yes Source: Developed by Drs. Sammy Cristobal, Yoli Vasquez, Thor Nash and colleagues, with an educational alexa from [employer]. Thrive Questionnaire Date Thrive assessed: 05/27/24 I am a: Patient What is your living situation today?: I have a steady place to live Within the past 12 months, did the food you bought not last and you didn't have the money to get more?: Never true Within the past 12 months, did you worry whether your food would run out before you got money to buy more?: Never true Do you have trouble paying for medicines?: No Do you have trouble getting transportation to medical appointments?: No Do you have trouble paying your heating and electricity bill?: No Do you have trouble taking care of your child, family member or friend?: No Do you have trouble with day-to-day activities such as bathing, preparing meals, shopping, managing finances, etc.?: No Are you currently unemployed and looking for a job?: No Are you interested in more education?: No Please select the resources that you would like help with: None Currently or been in a relationship where the following occur: No concerns reported THRIVE Score: 0 AUDIT C Alcohol Use Questionnaire (AUDIT-C) 2. How many drinks containing alcohol do you have on a typical day when you are drinking?: 1 or 2 3. How often do you have six or more drinks on one occasion?: Never Total Score: 0 CHARLEY-7 AMB Questionnaire CHARLEY-7 Date CHARLEY - 7 assessed: 05/27/24 Feeling nervous, anxious, or on edge: 0 = Not at all Not being able to stop or control worryin = Not at all Worrying too much about different things: 0 = Not at all Trouble relaxin = Not at all Being so restless that it is hard to sit still: 0 = Not at all Becoming easily annoyed or irritable: 0 = Not at all Feeling afraid as if something awful might happen: 0 = Not at all Total CHARLEY-7 score (0-4 normal; 5-9 mild; 10-14 moderate; 15-21 severe): 0 Source: Developed by Drs. Sammy Cristobal, Yoli Vasquez, Thor Nash and colleagues, with an educational alexa from [employer]. Physical exam (Primary Care) Vital Signs: Last Vital Signs Pulse 81 05/27/24 08:28 BP 122/70 05/27/24 08:28 Pulse Ox 99 05/27/24 08:28 Oxygen Delivery Method Room Air 05/27/24 08:28 BMI result Body Mass Index 31.9 Tobacco/Smoking Status: Tobacco use Status Tobacco use date assessed 05/27/24 05/27/24 08:35 Patient Tobacco Use Status Former Tobacco user 05/27/24 08:35 Tobacco use type Cigarette 05/27/24 08:35 e-Cigarette/Vaping Use Never Used 05/27/24 08:35 PHQ-9: PHQ-9 Score PHQ-9: Total score 1 05/27/24 08:42 Depression Screening Interpretation: Positive Thrive Assessment: Date of Thrive Assessment Date Thrive assessed 05/27/24 05/27/24 08:35 Currently or been in a relationship where the following occur: No concerns reported Const General: alert; No acute distress Eyes Conjunctivae: conjunctivae normal Resp Auscultation: clear to auscultation bilaterally Cardio Rate: regular rate Rhythm: regular rhythm GI Inspection: Yes normal to inspection Extrem General: Yes normal to inspection and No edema Coding Level of Care Code Est Pt Level 4 (88866) Complex EM visit Add On G2211 Diagnoses Menopause present Z78.0 Generalized anxiety disorder F41.1 Hypothyroid E03.9 Obstructive sleep apnea G47.33 Obesity (BMI 30-39.9) E66.9 Constipation K59.00 Hemorrhoid K64.9 Hair loss L65.9 Assessment & Plan Assessment & Plan (1) Menopause present: Code(s): Z78.0 - Asymptomatic menopausal state (2) Generalized anxiety disorder: Comment: Q 2 weeks counselling and therapy Code(s): F41.1 - Generalized anxiety disorder Category: Medical (3) Hypothyroid: Code(s): E03.9 - Hypothyroidism, unspecified Category: Medical (4) Obstructive sleep apnea: Comment: November 2021 Code(s): G47.33 - Obstructive sleep apnea (adult) (pediatric) Category: Medical (5) Obesity (BMI 30-39.9): Comment: Is losing weight with Zepbound Code(s): E66.9 - Obesity, unspecified Category: Medical (6) Constipation: Code(s): K59.00 - Constipation, unspecified Category: Medical (7) Hemorrhoid: Code(s): K64.9 - Unspecified hemorrhoids Category: Medical (8) Hair loss: Code(s): L65.9 - Nonscarring hair loss, unspecified Category: Medical Plan - For hemorrhoids: Prescribe topical hemorrhoid cream and recommend laxatives such as RAHEL with colace at night for constipation. Referral to a surgeon for possible hemorrhoidectomy should be considered, focusing on patient preference for conservative versus surgical management. - For alopecia: Advise avyn-yhh-yoxgkes biotin supplementation and proceed with comprehensive lab evaluation, including thyroid function tests, to rule out underlying endocrine causes. - Review potassium and renal function tests due to spironolactone and low water intake. Emphasize increasing water intake. - For triglycerides: Continue current medication regimen and suggest dietary modifications. - Recommend discontinuing NSAIDs like ibuprofen, preferring acetaminophen for pain relief protocols due to potential renal impact. - Monitoring blood pressure alongside current antihypertensive medication management. - No adjustments made to levothyroxine without pending thyroid function test results. - Re-educate on expected outcomes and potential side effects of terzapatide, with provision for dose adjustments. - Encourage ongoing weight management strategies, including exercise through rowing or other activities while monitoring for potentially counteractive medication effects. Orders: Orders Comprehensive Met. Panel Today E03.9 - Hypothyroidism, unspecified C Reactive Protein Today K64.9 - Unspecified hemorrhoids Thyroid Stimulating Hormone Today E03.9 - Hypothyroidism, unspecified Free T4 (Free Thyroxine) Today E03.9 - Hypothyroidism, unspecified Erythrocyte Sedimentation Rate Today K64.9 - Unspecified hemorrhoids Complete Blood Count Auto Diff Today K64.9 - Unspecified hemorrhoids Vitamin B12 and Folate Today K64.9 - Unspecified hemorrhoids Referrals General Surgery Referral K64.9 - Unspecified hemorrhoids Medications: New hydrocortisone 2.5% (Proctosol HC) 1 appl PA BID-QID PRN 30 grams 0RF hemorrhoids K64.9 - Unspecified hemorrhoids sennosides-docusate sodium 8.6-50 mg (Senna Plus) 2 tab-caps (2 x 8.6-50 mg) PO BEDTIME 30 days 60 tabs 2RF K59.00 - Constipation, unspecified Changed From spironolactone 100 mg PO BID 90 days 180 tabs 2RF L70.9 - Acne, unspecified To spironolactone polycystic 100 mg PO BID 90 days 180 tabs 2RF L70.9 - Acne, unspecified From tirzepatide (weight loss) 10 mg (0.5 mL) subcut QWEEK 1 month 2.5 mL 2RF E66.01 - Morbid (severe) obesity due to excess calories To tirzepatide (weight loss) 10 mg (0.4 mL) subcut QWEEK 1 month 2 mL 2RF E66.01 - Morbid (severe) obesity due to excess calories Discontinued misoprostol Place in vagina within 6 hours prior to planned IUD procedure Discontinued Reason: Duplicate 200 mcg vaginal ONCE 1 tab 0RF
== END 2024-05-27 09:00 | disposition home or self-care (01) ==
PROVIDERS: PCP Internal Medicine; Visit Provider Internal Medicine
DX: E03.9 Hypothyroidism, unspecified (principal); E66.9 Obesity, unspecified; Z68.31 Body mass index [BMI] 31.0-31.9, adult; F41.1 Generalized anxiety disorder; Z78.0 Asymptomatic menopausal state; G47.33 Obstructive sleep apnea (adult) (pediatric); K59.00 Constipation, unspecified; K64.9 Unspecified hemorrhoids; L65.9 Nonscarring hair loss, unspecified

== ENCOUNTER 2024-06-17 15:17 | Outpatient (AMB) | payer OTHER, SELFPAY ==
--- NOTE | 2024-06-17 15:18 | MHC.OFFVIS ---
Vital Signs 06/17/24 15:19 Height 5 ft 4 in Weight 180 lb BMI 30.9 Intake Visit Reasons: Unspecified hemorrhoids Intake Note: This patient was referred by for Unspecified hemorrhoids. Pt c/o; history of constipation, intermittent rectal bleeding, about 3 weeks ago she had an episode of severe pain but no pain today 06/17/24, hemorrhoids have been symptomatic for the past month but she has been having this problem for several years. Top Knitter Required: No Gang Head Saw Operator: Gang Head Saw Operator Present ([place]) Accompanied by: Self / Same As Patient Allergies Sulfa (Sulfonamide Antibiotics) [Sulfa (Sulfonamides)] Allergy (Mild, Verified 06/17/24 15:28) RASH erythromycin base [From ERYTHROCIN] Allergy (Unknown, Verified 06/17/24 15:28) HIVES Medication List - Last Reconciled 06/17/24 by Jj Ortiz MD [AUTOPAP mode 6-20 cm H2O humidified AIR As directed] bupropion HCl SR (Wellbutrin SR) 200 mg PO DAILY cholecalciferol (vitamin D3) 25 mcg PO DAILY fluoxetine 10 mg PO DAILY hydrocortisone 2.5% (Proctosol HC) 1 appl MD BID-QID PRN levonorgestrel (Mirena) 1 device intrauterine DIRECTED levothyroxine 50 mcg PO DAILY 90 days psyllium husk (Daily Fiber) 0.52 grams PO BEDTIME sennosides-docusate sodium 8.6-50 mg (Senna Plus) 2 tab-caps (2 x 8.6-50 mg) PO BEDTIME 30 days spironolactone 100 mg PO BID 90 days tirzepatide (weight loss) 12.5 mg (0.5 mL) subcut QWEEK 1 month HPI HPI Unspecified hemorrhoids: Details: 48-year-old female here for problematic hemorrhoids She says that she has had hemorrhoids for many years. She would occasionally have some bleeding along with some swelling and pain However, a month ago, she said she had an episode of pain that lasted for couple of weeks. She said that she had significant swelling as well at that time. She says that this has eventually subsided. She says she no longer has that much pain anymore. She also has a long history of constipation. [facility] Medical History (Updated 06/17/24 @ 15:49 by Jj Ortiz MD) Hemorrhoids with complication Colon cancer screening Family history of colon cancer Polycystic ovarian syndrome Asthma Obsessive compulsive disorder History of renal calculi Cholelithiasis Hypothyroid Recurrent major depression Obesity (BMI 30-39.9) Surgical History History of colonoscopy H/O abdominal surgery History of ankle surgery History of section Family History Father Cancer Renal cancer Myocardial infarct Lymphoma Mother No problems noted. Sister No problems noted. Sister No problems noted. Son No problems noted. Maternal Grandmother Colon cancer Other Mental health disorder Social History Housing: House Alcohol intake: current Alcohol intake frequency: a few times a month Comment: once Q 2 week 1 drinks Patient Tobacco Use Status: Former Tobacco user Tobacco use type: Cigarette Years Smoked: Quit 2015 e-Cigarette/Vaping Use: Never Used Second Hand Smoke Exposure: No service: No Current occupational status: employed Cognitive needs: No Hearing needs: No Vision needs: No Female Reproductive History Menstrual Age of Menarche: 11 Review of Systems Const Denies chills and Denies fever(s) Card Denies chest pain, Denies dyspnea and Denies dyspnea on exertion Resp Denies cough, Denies dyspnea and Denies dyspnea on exertion GI Reports hematochezia, Denies change in bowel habits and Reports constipation Denies hematuria Musc Denies back pain and Denies limited range of motion Neuro Denies focal weakness and Denies convulsions Psych Denies depression and Denies mood swings Physical Exam Vital Signs: BMI result Body Mass Index 30.9 Const General: comfortable and no acute distress Orientation/consciousness: patient oriented x3 Neck Neck: Yes no lymphadenopathy Resp Auscultation: clear to auscultation bilaterally Cardio Rhythm: regular rhythm GI Other: Rectal exam shows a large external hemorrhoid on the left, not tender, not thrombosed, not inflamed Anoscopy was attempted. However, she could not tolerate a full topic exam because of discomfort. Digital exam was done and there was no hypertonicity of the sphincter Palpation (GI): Soft to palpation, nontender and no guarding Neuro General: patient oriented x3 Assessment & Plan Assessment & Plan (1) Hemorrhoids with complication: Code(s): K64.8 - Other hemorrhoids Category: Medical Plan: She describes a long history of hemorrhoids with what she thinks has been worsening problems with pain. She wants to proceed with hemorrhoidectomy. She appears to have a mix of internal external hemorrhoids. I had a long discussion with her about the technique of exam under anesthesia and hemorrhoidectomy. I reviewed the risks including but not limited to bleeding, infections, postop pain, sphincter injury, as well as the benefits and alternatives. I also discussed with her what to expect postoperatively She says that in view of her periodic problems, she wants to proceed. Coding Level of Care Code New Pt Level 3 (40143) Diagnoses Hemorrhoids with complication K64.8
[2024-06-17 15:19] VITALS: BMI 30.9
--- OUTSIDE RECORDS SUMMARY | 2024-06-17 17:15 | XMS_ITS | Patient Health Record ---
Author Organization [facility] Address [address] [place] [address] Support Name Relationship Address Phone RADHA AZEVEDO Guarantor Unknown [phone] Reason For Referral No Information Medications Medication SIG (Take, Route, Fr equency, Duration) Notes Start Date End Date Status TriNessa (28) 0.035MG 1 ORAL daily for -3 Jj-MJ 01/24/20 13 Active Synthroid 25MCG 1 ORAL daily for -3 Jj-MJ 01/24/2012 Active buPROPion HCl 150MG SR 1 ORAL twice daily for -3 Jj-MJ 0 01/24/2012 Active Problems Problem Type SNOMED Code ICD Code Onset Dates Problem Status W/U Status Risk Notes Problem Hypothyroidism (91456541) Unspecified hypothyroidism (244.9) Active confirmed Major Problem Obesity (880333642) Obesity, unspecified (278.00) Active confirmed Major Problem Depressive disorder (99003933) Depressive disorder, not elsewhere classified (311) Active confirmed Major Problem Gynecological examination normal ([id number]) Routine gynecological examination (V72.31) Active confirmed Diag Plan Of Treatment No Information Insurance Providers Payer Name Payer Address Payer Phone Subscriber Number Group Number Insured Name Patient Relationship to Insured Coverage Start Date Coverage End Date [facility] [address] [place] [address] [id number] RADHA AZEVEDO Self - patient is the insured
--- OUTSIDE RECORDS SUMMARY | 2024-06-17 17:15 | XMS_ITS | Clinical Summary ---
Author Organization [facility] Address [address] [place] [address] Care Team Providers Care Nephrology Nurse Name Role Phone Brendon Avina MD Primary Care Provider [phone] Surgical History Surgery Date Site/Laterality Comments OTHER SURGICAL HISTORY PROCEDURE: OK REPAIR PRIMARY OPEN/PRQ RUPTURED ACHILLES TENDON SECTION PROCEDURE: HISTORICAL DELIVERY HERNIA REPAIR PROCEDURE: HISTORICAL HERNIA REPAIR/UMB EYE SURGERY Bilateral PROCEDURE: HISTORICAL EYE SURGERY; COMMENT: LASIK Medical History Medical History Date Comments Hypothyroidism DX:Hypothyroidis m; COMMENT: diagnosed 4yrs ago Major depression DX:Major depres hyun; COMMENT: follows with Dr Nghia Cabrera OCD (obsessive compulsive disorder) DX:OCD (obsessive compulsive disorder) 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 Abnormal mammogram 02/2017 DX:Abnormal m ammogram; COMMENT: repeat 6 mo PCOS (polycystic ovarian syndrome) DX:PCOS (polycystic ovarian syndrome) Dyspepsia DX:Dyspepsia B12 deficiency DX:B12 deficienc y Family History Medical History Relation Name Comments Heart attack Father at 54 Hyperlipidemia Father Hypertension Father Kidney cancer Father Lymphoma Father Colon cancer Maternal Grandmother Other: Other Mother polymyalgia Other: diverticulitis Mother Hyperlipidemia Paternal Grandfather cad Other: skin cancers Paternal Grandfather Breast cancer Neg Hx Ovarian cancer Neg Hx Pancreatic cancer Neg Hx Uterine cancer Neg Hx Relation Name Status Comments Father Alive Maternal Grandfather Maternal Grandmother Mother Alive Paternal Grandfather Paternal Grandmother Sister Alive Son Jesús Alive Social History Tobacco Use Types Packs/Day Years Used Date Smoking Tobacco: Former Cigarettes Q uit: 07/19/2015 Smokeless Tobacco: Never Alcohol Use Standard Drinks/Week Comments No 0 (1 standard drink = 0.6 oz pur e alcohol) Sex and Gender Information Value Date Recorded Sex Assigned at Not on file Gender Identity Not on file Sexual Orientation Not on file Obstetrics History Last Filed Vital Signs Vital Sign Reading Time Taken Comments Blood Pressure 119/85 09/19/2022 4:09 PM EDT Pulse 87 09/19/2022 4:09 PM EDT Temperature - - Respiratory Rate - - Oxygen Saturation - - Inhaled Oxygen Concentration - - Weight 107 kg (235 lb) 09/19/2022 4:09 PM EDT Height 164.5 cm (5' 4.75 ) 09/19/2022 4:09 PM ED T Body Mass Index 39.41 09/19/2022 4:09 PM EDT Plan of Treatment Upcoming Encounters Date Type Department Care Team (Late st Contact Info) Description 09/08/2024 3:50 PM EDT Appointment Radiology Department [address] [address] Health Maintenance Due Date Last Done Comments Hepatitis B Vaccines (1 of 3 - 19+ 3-dose series) 1992 Cervical Cancer Screening: HPV 1994 Colorectal Cancer Screening: Colonoscopy 04/28/2022 Depression Screening 04/28/2022 HIV Screening 04/28/2022 Hepatitis C Screening 04/28/2022 Social Influencers of Health Screening 04/28/2022 DTaP,Tdap,and Td Vaccines (2 - Td or Tdap) 09/09/2022 09/09/2012 Zoster Vaccines (1 of 2) 10/19/2023 COVID-19 Vaccine ( - season) 2024 Influenza Vaccine (#1) 2024 03/05/2018, 2016 Breast Cancer Screening 08/25/2025 08/26/19, 08/26/2023, 08/16/2022, Additional history exists HIB Vaccines Aged Out No longer eligi ble based on patient's age to complete this topic HPV Vaccines Aged Out No longer eligi ble based on patient's age to complete this topic Hepatitis A Vaccines Aged Out No long er eligible based on patient's age to complete this topic IPV Vaccines Aged Out No longer eligi ble based on patient's age to complete this topic MMR Vaccines Aged Out No longer eligi ble based on patient's age to complete this topic Meningococcal ACWY Vaccine Aged Out N o longer eligible based on patient's age to complete this topic Pneumococcal Vaccine: Pediatrics (0 to 5 Years) and At-Risk Patients (6 to 64 Years) Aged Out No longer eligible based on patient's age to complete this topic RSV Immunization Patients Under 20 months Aged Out No longer eligible based on patient's age to complete this topic Varicella Vaccines Aged Out No longer eligible based on patient's age to complete this topic Procedures Procedure Name Priority Date/Time Associated Diagnosis Comments SCREENING MAMMOGRAPHY BI 2-VIEW BREAST INC CAD Routine 08/26/2023 4:53 PM EDT Encounter for screening mammogram for malignant neoplasm of breast from Last 3 Months or Most Recently Relevant to Health Maintenance Results * SCREENING MAMMOGRAPHY BI 2-VIEW BREAST INC CAD (08/26/2023 4:53 PM EDT) Anatomical Region Laterality Modality Radiographic Patricia ging 08/16/2022 4:24 PM EDT Narrative 08/27/2023 4:02 PM EDT This is a summary report. The complete report is available in the patient's medical record. If you cannot access the medical record, please contact the sending organization for a detailed fax or copy. BILATERAL 3D DIGITAL SCREENING MAMMOGRAM History: Routine screening. ??No current breast complaints. Comparison: Multiple priors dating back to 03/31/2019 Technique: Bilateral full-field digital 3D mammography was performed using standard CC and MLO projections, right breast exaggerated cc CAD was used to evaluate this mammogram. Findings: Density: ??There are scattered areas of fibroglandular density-B RIGHT: No suspicious masses, groups of microcalcification or areas of architectural distortion identified. Stable typically benign parenchymal asymmetries LEFT: No suspicious masses, groups of microcalcifications or areas of architectural distortion identified. Stable typically benign parenchymal asymmetries IMPRESSION: : 1. ??No mammographic evidence of malignancy. BI-RADS Category 2 benign findings Recommendation: Routine annual screening mammography is recommended Procedure Note José Cm MD - 01/06/2024 This is a summary report. The complete report is available in thepatient's medical record. If you cannot access the medical record, pleasecontact the sending organization for a detailed fax or copy. BILATERAL 3D DIGITAL SCREENING MAMMOGRAM History: Routine screening. No current breast complaints. Comparison: Multiple priors dating back to 03/31/2019 Technique: Bilateral full-field digital 3D mammography was performed usingstandard CC and MLO projections, right breast exaggerated cc CAD was used to evaluate this mammogram. Findings: Density: There are scattered areas of fibroglandular density-B RIGHT: No suspicious masses, groups of microcalcification or areas ofarchitectural distortion identified. Stable typically benign parenchymalasymmetries LEFT: No suspicious masses, groups of microcalcifications or areas ofarchitectural distortion identified. Stable typically benign parenchymalasymmetries IMPRESSION: : 1. No mammographic evidence of malignancy. BI-RADS Category 2 benign findings Recommendation: Routine annual screening mammography is recommended Brendon Avina MD IMG XR PROCEDURES from Last 3 Months or Most Recently Relevant to Health Maintenance Care Teams Nephrology Nurse Relationship Specialty Start Date End Date Brendon Avina MD [address] [place] [address] [address] [facility] [place] [address] PCP - General Internal Medicine 09/04/21
== END 2024-06-17 15:44 | disposition home or self-care (01) ==
PROVIDERS: PCP Internal Medicine; Referring Provider Internal Medicine; Visit Provider Surgery
DX: K64.8 Other hemorrhoids (principal)
CPT/HCPCS: 99203

== ENCOUNTER → 2024-06-17 15:17 | Outpatient (BNVA) | payer OTHER, SELFPAY | PROVIDERS: PCP Internal Medicine; Referring Provider Internal Medicine; Visit Provider Surgery ==

== ENCOUNTER 2024-06-17 15:47 | Outpatient (REF) | payer OTHER, SELFPAY ==
[2024-06-17 16:12] LABS: MANUAL DIFF FLAG NO
[2024-06-17 17:15] LABS: Basophils Absolute Auto 0.1 X10*3/uL (0.0-0.2); Basophils Percent Auto 0.7 % (0-2); Eosinophils Absolute Auto 0.1 X10*3/uL (0.0-0.4); Eosinophils Percent Auto 0.8 % (0-4); Hemoglobin 14.2 g/dl (12.0-16.0); Imm Gran Abs Auto 0.02 X10*3/uL (0.00-0.03); Imm Gran Pct Auto 0.3 % (0.0-0.4); Lymphocytes Absolute Auto 2.7 X10*3/uL (1.2-4.9); Lymphocytes Percent Auto 35.5 % (20-40); Mean Corpuscular HGB Conc 36.4 g/dl (31.0-35.0); Mean Corpuscular Hemoglobin 32.8 pg (27.0-33.0); Mean Corpuscular Volume 90.1 fL (80.0-98.0); Mean Platelet Volume 10.4 fL (9.4-12.3); Monocytes Absolute Auto 0.3 X10*3/uL (0.1-1.2); Monocytes Percent Auto 4.3 % (2-11); Neutrophils Absolute Auto 4.5 x10*3/uL (2.0-8.3); Neutrophils Percent Auto 58.4 % (45-73); Platelet Count 318 X10*3/uL (160-400); Red Blood Count 4.33 X10*6/uL (4.20-5.50); Red Cell Distribution Width 12.6 % (11.0-16.0); White Blood Count 7.6 X10*3/uL (4.8-10.8)
[2024-06-17 17:59] LABS: Alanine Aminotransferase 10 U/L (0-31); Albumin Level 4.6 g/dL (3.5-5.0); Alkaline Phosphatase 45 U/L (39-117); Anion Gap 12 (12-20); Aspartate Amino Transferase 19 U/L (5-31); Bilirubin Total 0.4 mg/dL (0.0-1.0); Blood Urea Nitrogen 11 mg/dL (9-16); C Reactive Protein 0.21 mg/dL (< or = 0.50); Calcium 9.6 mg/dL (8.4-10.2); Carbon Dioxide 27 mmol/L (22-29); Chloride 103 mmol/L (96-108); Estimated Glomerular Filt Rate > 60; Glucose Random 73 mg/dL (60-115); Potassium 3.8 mmol/L (3.3-5.1); Sodium 138 mmol/L (135-145); Total Protein 7.6 g/dL (6.5-8.0)
[2024-06-17 18:17] LABS: Free T4 (Free Thyroxine) 1.02 ng/dL (0.71-1.85); Thyroid Stimulating Hormone 1.98 uIU/mL (0.32-4.0)
[2024-06-17 18:18] LABS: Erythrocyte Sedimentation Rate 19 MM/HR (0-20)
[2024-06-17 18:28] LABS: Folate 5.9 ng/mL (> or = 4.0); Vitamin B12 361 pg/mL (200-900)
[2024-06-18 09:14] LABS: Follicle Stimulating Hormone 15.3 mIU/mL; Prolactin 8.9 ng/mL
== END 2024-06-17 15:48 | disposition home or self-care (01) ==
LOC: HO.LAB 15:47
PROVIDERS: PCP Internal Medicine; Visit Provider Internal Medicine
DX: E03.9 Hypothyroidism, unspecified (principal); K64.9 Unspecified hemorrhoids; E83.52 Hypercalcemia; F41.1 Generalized anxiety disorder
CPT/HCPCS: 36415; 80053; 82607; 82746; 83001; 84146; 84439; 84443; 85025; 85652; 86140

== ENCOUNTER 2024-08-07 10:04 | Day surgery (SDC) | payer OTHER, SELFPAY ==
[2024-08-07] VITALS (13 sets, daily range): BP systolic 101–114; BP diastolic 61–81; PULSE 58–80; RESP 12–24; TEMP 36.1–36.6; O2SAT 96–100; BMI 30.2
[2024-08-07 10:32] LABS: UPreg QC Valid YES; Urine Pregnancy NEGATIVE (NEGATIVE)
[2024-08-07] MEDS: Lactated Ringers 1,000 ML 100 ML IVCONT (10:47)
--- NOTE | 2024-08-07 11:20 | P.CONAN_ITS ---
Documented by User: Zahra Lopez NP 08/06/24 09:10 HPI - Anesthesia Eval Consult details Narrative: 48yo F for EUA, Hemorrhoidectomy Anesthesia Pre-Procedure Meds Is the patient on any of the following meds?: GLP1/DPP4 PMFSH Active Problems Active Problems: All Active Problems Hair loss (Acute) Hemorrhoid (Acute) Constipation (Acute) Perimenopause (Acute) Encounter for removal and reinsertion of intrauterine contraceptive device (IUD) (Acute) Presence of 52 mg levonorgestrel-releasing intrauterine device (IUD) (Acute) Cervical cancer screening (Acute) Morbid obesity (Acute) Hypercalcemia (Acute) Hypercholesterolemia (Acute) Impaired glucose tolerance (Acute) Generalized anxiety disorder (Acute) Annual physical exam (Acute) Obstructive sleep apnea (Acute) Acne (Acute) Hirsutism (Acute) Hemorrhoids with complication (Acute) Hypothyroid (Acute) Cholelithiasis (Acute) History of renal calculi (Acute) Obesity (BMI 30-39.9) (Acute) Past Medical History Medical History (Updated 08/05/24 @ 15:27 by Madeline Vera RN) MEI on CPAP Hemorrhoids with complication Family history of colon cancer Colon cancer screening Polycystic ovarian syndrome Asthma Obsessive compulsive disorder History of renal calculi Cholelithiasis Hypothyroid Recurrent major depression Obesity (BMI 30-39.9) Family History Family History Father Cancer Renal cancer Myocardial infarct Lymphoma Mother No problems noted. Sister No problems noted. Sister No problems noted. Son No problems noted. Maternal Grandmother Colon cancer Other Mental health disorder Family history of problems with anesthesia: No Surgical History Surgical History (Updated 08/07/24 @ 10:25 by Sada Wiggins RN) Hx of LASIK History of colonoscopy H/O abdominal surgery History of ankle surgery History of section History of Problems with Anesthesia: No Social History Social History Housing: House Are you a primary career development coordinator to a significant other at home: No Do you presently have visiting nurse or other home services: No Alcohol intake: current Alcohol intake frequency: holidays/special occasions only Comment: once Q 2 week 1 drinks Patient Tobacco Use Status: Former Tobacco user Tobacco use type: Cigarette Years Smoked: Quit 2015 e-Cigarette/Vaping Use: Never Used Second Hand Smoke Exposure: No Use of substances other than those prescribed or required for medical reasons: No Have you been hit, kicked, punched, or otherwise hurt by someone within the past year? If so, by whom?: No Are you DNR?: No Advance Directives: No (will bring dos) Advance Directives Information Provided: Yes Advance Directives on File: No Recently lost weight without trying: No Nutrition Risks: No Nutritional Risk Patient : No Poor oral hygiene: No service: No Current occupational status: employed Cognitive needs: No Hearing needs: No Vision needs: No Meds Allergies Allergy/AdvReac Type Severity Reaction Status Date / Time erythromycin base Allergy Intermediate HIVES Verified 08/05/24 15:15 [From ERYTHROCIN] Sulfa (Sulfonamide Allergy Intermediate RASH Verified 08/05/24 15:15 Antibiotics) [Sulfa (Sulfonamides)] Home Medications ?Medication ?Instructions ?Recorded ?Confirmed ?Last Taken ?Type bupropion HCl 200 mg tablet,12 hr 200 mg PO DAILY 02/10/21 08/05/24 Unknown History sustained-release (Wellbutrin SR) cholecalciferol (vitamin D3) 25 25 mcg PO DAILY 02/10/21 08/05/24 Unknown History mcg (1,000 unit) capsule fluoxetine 10 mg tablet 10 mg PO DAILY 02/10/21 08/05/24 Unknown History levonorgestrel 21 mcg/24 hr (up to 1 device intrauterine DIRECTED 02/10/21 08/05/24 Unknown History 8 years) 52 mg intrauterine device (Mirena) psyllium husk 0.52 gram capsule 0.52 g PO BEDTIME 02/10/21 08/05/24 Unknown History (Daily Fiber) Exam Height,Weight and Vital Signs: Height 5 ft 4 in Weight 79.379 kg Assessment and Plan Assessment Anesthesia Assessment: Chart Reviewed Final Anesthetic Review Family History of Problems with Anesthesia: No History of Problems with Anesthesia: No Documented by User: Sarita Yu DO 08/07/24 11:37 HPI - Anesthesia Eval Anesthesia Pre-Procedure Meds Is the patient on any of the following meds?: GLP1/DPP4 [facility] Past Medical History Medical History (Updated 08/05/24 @ 15:27 by Madeline Vera, RN) MEI on CPAP Hemorrhoids with complication Family history of colon cancer Colon cancer screening Polycystic ovarian syndrome Asthma Obsessive compulsive disorder History of renal calculi Cholelithiasis Hypothyroid Recurrent major depression Obesity (BMI 30-39.9) Family History Family History Father Cancer Renal cancer Myocardial infarct Lymphoma Mother No problems noted. Sister No problems noted. Sister No problems noted. Son No problems noted. Maternal Grandmother Colon cancer Other Mental health disorder Family history of problems with anesthesia: No Surgical History Surgical History (Updated 08/07/24 @ 10:25 by Sada Wiggins RN) Hx of LASIK History of colonoscopy H/O abdominal surgery History of ankle surgery History of section History of Problems with Anesthesia: No Social History Social History Housing: House Are you a primary career development coordinator to a significant other at home: No Do you presently have visiting nurse or other home services: No Alcohol intake: current Alcohol intake frequency: holidays/special occasions only Comment: once Q 2 week 1 drinks Patient Tobacco Use Status: Former Tobacco user Tobacco use type: Cigarette Years Smoked: Quit 2015 e-Cigarette/Vaping Use: Never Used Second Hand Smoke Exposure: No Use of substances other than those prescribed or required for medical reasons: No Have you been hit, kicked, punched, or otherwise hurt by someone within the past year? If so, by whom?: No Are you DNR?: No Advance Directives: No (will bring dos) Advance Directives Information Provided: Yes Advance Directives on File: No Recently lost weight without trying: No Nutrition Risks: No Nutritional Risk Patient : No Poor oral hygiene: No service: No Current occupational status: employed Cognitive needs: No Hearing needs: No Vision needs: No Meds Allergies Allergy/AdvReac Type Severity Reaction Status Date / Time erythromycin base Allergy Intermediate HIVES Verified 08/05/24 15:15 [From ERYTHROCIN] Sulfa (Sulfonamide Allergy Intermediate RASH Verified 08/05/24 15:15 Antibiotics) [Sulfa (Sulfonamides)] Home Medications ?Medication ?Instructions ?Recorded ?Confirmed ?Last Taken ?Type bupropion HCl 200 mg tablet,12 hr 200 mg PO DAILY 02/10/21 08/05/24 Unknown History sustained-release (Wellbutrin SR) cholecalciferol (vitamin D3) 25 25 mcg PO DAILY 02/10/21 08/05/24 Unknown History mcg (1,000 unit) capsule fluoxetine 10 mg tablet 10 mg PO DAILY 02/10/21 08/05/24 Unknown History levonorgestrel 21 mcg/24 hr (up to 1 device intrauterine DIRECTED 02/10/21 08/05/24 Unknown History 8 years) 52 mg intrauterine device (Mirena) psyllium husk 0.52 gram capsule 0.52 g PO BEDTIME 02/10/21 08/05/24 Unknown History (Daily Fiber) Exam Exam Date and Time: 08/07/24 1120 Height,Weight and Vital Signs: Height 5 ft 4 in Weight 79.379 kg Vital Signs Temperature 97.8 F 08/07/24 10:36 Pulse Rate 73 08/07/24 10:36 Respiratory Rate 16 08/07/24 10:36 Blood Pressure 102/67 08/07/24 10:36 Pulse Oximetry 96 08/07/24 10:36 Oxygen Delivery Method Room Air 08/07/24 10:36 Temperature 97.8 F 08/07/24 10:36 Pulse Rate 73 08/07/24 10:36 Respiratory Rate 16 08/07/24 10:36 Blood Pressure 102/67 08/07/24 10:36 Pulse Oximetry 96 08/07/24 10:36 Oxygen Delivery Method Room Air 08/07/24 10:36 Airway Mallampati Class: II TM Dist: >3cm Neck ROM: Full Loose/Missing/Broken Teeth: No (patient denies any loose or broken teeth) Heart: S1S2 Lungs: CTAB Assessment and Plan Assessment Anesthesia Assessment: Anesthesia Plan Discussed and Chart Reviewed Final Anesthetic Review Family History of Problems with Anesthesia: No History of Problems with Anesthesia: No NPO: Yes ASA Class: II Final Preanesthetic Review: No Changes in Pt Med Stat, Meds/Allgs Chart Reviewed, Consent Obtained/Reviewed and Anes Risks/Benef Reviewed Patient Risk: Low Procedure Risk: Low Anesthetic Plan Anesthetic Plan: GA and Agree w/ Assess. and Plan Disposition: Standard PACU
--- NOTE | 2024-08-07 12:39 | P.HPSUR_ITS ---
Pre-Procedural Eval Section A - 24 Hr Update-Section A only Date of Service: 08/07/24 Section B - Complete if H&P > 30 days Chief Complaint: Other hemorrhoids Details of Present Illness: Has had pain and swelling with her hemorrhoids Relevant Social History: None Present Medications: see Short Stay Collaborative assessment Medical History: Significant History (Hyperlipidemia, morbid obesity, impaired g lucose tolerance obstructive sleep apnea) Allergies: Allergies Allergy/AdvReac Type Severity Reaction Status Date / Time erythromycin base Allergy Intermediate HIVES Verified 08/05/24 15:15 [From ERYTHROCIN] Sulfa (Sulfonamide Allergy Intermediate RASH Verified 08/05/24 15:15 Antibiotics) [Sulfa (Sulfonamides)] Review of Systems Sugical H&P ROS: Negative: Constitution, Cardiovascular and Gastrointestinal Plan Diagnosis/Plan: Unchanged I have reviewed the history and physical and performed a pertinent physical examination on my patient. No changes have occurred unless specified. Time Spent With Patient Time: Total time managing care of this patient today ____ minutes.
[2024-08-07] MEDS: cefoTEtan disodium 2 GM VIAL IVPUSH (13:10)
--- NOTE | 2024-08-07 13:38 | P.OP_ITS ---
Operative Note Operative Note Date of Service: 08/07/24 Narrative: Preop diagnosis: internal and external hemorrhoids with pain and swelling Postop diagnosis: The same Procedure: Exam under anesthesia hemorrhoidectomy x1 column Surgeon: Jj Ortiz MD Inspector Hairspring Truing: Warren Hurt The patient is a 48-year-old female with a long history of complaints of pain and swelling with the hemorrhoids. She therefore wanted to proceed with hemorrhoidectomy. She understood the technique of the procedure as well as the risks, benefits, and alternatives She was brought to the operating room. She was placed in prone joselyn-knife position under general anesthesia via endotracheal tube. The buttocks were retracted with wide tape laterally. The perianal area was prepped and draped in the usual sterile fashion. A surgical time-out was done. The patient received Cefotan 2 g IV preoperatively The perianal area was infiltrated with lidocaine 1%. Examination of the anal orifice revealed a prominent external hemorrhoidal column on the left posterior. I inserted the Stan Sainz retractor and examined the anal canal circumferentially. Again there was note of this hemorrhoidal column, a mix of internal external on the posterior. I examined the rest of the anal canal. There were no other lesions. There was no fissure or ulceration. There were smaller hemorrhoidal columns internally I applied a Staton grasper on the hemorrhoidal column posteriorly to retract this out in the field. I made a [id number] stitch at its pedicle past the dentate line with a chromic 3-0 stitch. I made an incision around this hemorrhoidal column to the perianal skin with a blade 15. I excised this hemorrhoidal column above the plane of the sphincters with scissors. I closed this incision with a running chromic 3-0 stitch. Additional hemostatic [id number] sutures were placed. Once hemostasis was confirmed, I proceeded to infiltrate the perianal area with Marcaine 0.5% for postop analgesia. Procedure was then completed The patient tolerated procedure well. There were no immediate complications. Initial and final counts of sponges and instruments were correct. Estimated blood loss was about 25 cc. The patient was extubated without difficulty and transferred to the recovery room with stable vital signs
[2024-08-07] MEDS: fentaNYL citrate/PF 100 MCG/2 ML VIAL 50 MCG IVPUSH ×4 (14:02→14:18)
[2024-08-07] MEDS: oxyCODONE HCl Immed Release 5 MG TABLET PO (14:27)
== END 2024-08-07 15:42 | disposition home or self-care (01) ==
PROVIDERS: Nurse Practitioner; PCP Internal Medicine; Visit Provider Surgery
PROC: (CPT 46255; principal; 2024-08-07 13:50)
DX: K64.8 Other hemorrhoids (principal); K64.4 Residual hemorrhoidal skin tags; K59.00 Constipation, unspecified; Z80.0 Family history of malignant neoplasm of digestive organs; K80.20 Calculus of gallbladder without cholecystitis without obstruction; E28.2 Polycystic ovarian syndrome; G47.33 Obstructive sleep apnea (adult) (pediatric); J45.909 Unspecified asthma, uncomplicated; E03.9 Hypothyroidism, unspecified; F33.9 Major depressive disorder, recurrent, unspecified; Z97.5 Presence of (intrauterine) contraceptive device; Z87.442 Personal history of urinary calculi; E66.9 Obesity, unspecified; Z68.30 Body mass index [BMI] 30.0-30.9, adult; Z79.85 Long-term (current) use of injectable non-insulin antidiabetic drugs; Z79.899 Other long term (current) drug therapy; Z88.1 Allergy status to other antibiotic agents; Z88.2 Allergy status to sulfonamides; Z87.891 Personal history of nicotine dependence
CPT/HCPCS: 46255; 81025; 88304; J0131; J0330; J1100; J2003; J2250; J2405; J2704; J2795; J3010

== ENCOUNTER → 2024-08-07 10:04 | Outpatient (BNV) | payer OTHER, SELFPAY | PROVIDERS: PCP Internal Medicine; Visit Provider Surgery | DX: K64.8 Other hemorrhoids (principal) | CPT/HCPCS: 46255 ==

== ENCOUNTER 2024-08-19 15:30 | Outpatient (AMB) | payer OTHER, SELFPAY ==
--- NOTE | 2024-08-19 15:40 | MHC.OFFVIS ---
Vital Signs 08/19/24 15:45 Weight 174 lb BP 104/74 Blood Pressure Location Rt brachial Position Sitting Pulse 72 Intake Visit Reasons: S/P hemorrhoidectomy Intake Note: Patient here s/p hemorrhoidectomy x1 column on 08-07-2024. Patient c/o: bleeding, tender painful to touch. Reports excision slowly healing. Mildly constipated but taking colace, fiber pills. Drinking lots of water. No longer taking rx pain meds. 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 She tolerated procedure well. She admits to postop pain but says that she is getting better. [facility] Medical History MEI on CPAP Hemorrhoids with complication Family history of colon cancer Colon cancer screening Polycystic ovarian syndrome Asthma Obsessive compulsive disorder History of renal calculi Cholelithiasis Hypothyroid Recurrent major depression Obesity (BMI 30-39.9) Surgical History Hx of LASIK History of colonoscopy H/O abdominal surgery History of ankle surgery History of section Family History Father Cancer Renal cancer Myocardial infarct Lymphoma Mother No problems noted. Sister No problems noted. Sister No problems noted. Son No problems noted. Maternal Grandmother Colon cancer Other Mental health disorder Social History Housing: House Are you a primary family day care worker to a significant other at home: No Do you presently have visiting nurse or other home services: No Alcohol intake: current Alcohol intake frequency: holidays/special occasions only Comment: once Q 2 week 1 drinks Patient Tobacco Use Status: Former Tobacco user Tobacco use type: Cigarette Years Smoked: Quit 2015 e-Cigarette/Vaping Use: Never Used Second Hand Smoke Exposure: No service: No Current occupational status: employed Cognitive needs: No Hearing needs: No Vision needs: No Female Reproductive History Menstrual Age of Menarche: 11 Review of Systems Const Denies chills and Denies fever(s) Physical Exam Const General: comfortable and no acute distress Resp Effort & Inspection: normal respiratory effort GI Other: Rectal exam shows the hemorrhoidectomy site to be healing well, no signs of infection Assessment & Plan Assessment & Plan (1) Hemorrhoids with complication: Code(s): K64.8 - Other hemorrhoids Category: Medical Plan: Status post hemorrhoidectomy. She is doing well postoperatively. Her surgical site is healing well. Her path report shows hemorrhoidal tissue I advised her to avoid straining and constipation. She can otherwise follow up on a p.r.n. basis. She does describe having some constipation so I will send a prescription for Metamucil powder. Coding Level of Care Code Global (41583) Diagnoses Hemorrhoids with complication K64.8
[2024-08-19 15:45] VITALS: BP 104/74; PULSE 72
--- OUTSIDE RECORDS SUMMARY | 2024-08-19 17:45 | XMS_ITS | Clinical Summary ---
Author Organization [facility] Address [address] [place] [address] Care Team Providers Care [employer] Guidance Counselor Name Role Phone Brendon Avina MD Primary Care Provider [phone] Surgical History Surgery Date Site/Laterality Comments OTHER SURGICAL HISTORY PROCEDURE: IN REPAIR PRIMARY OPEN/PRQ RUPTURED ACHILLES TENDON SECTION [...] drink = 0.6 oz pur e alcohol) Comments Unknown Sex and Gender Information Value Date Recorded Sex Assigned at Not on file Legal Sex Female 10:21 AM EST Gender Identity Not on file Sexual Orientation [...] 09/08/2024 3:50 PM EDT Appointment Radiology Department [address] [address] Health Maintenance Due Date Last Done Comments Hepatitis B Vaccines (1 of 3 - 19+ 3-dose series) 1992 Cervical Cancer Screening: HPV 1994 Colorectal Cancer Screening: Colonoscopy 04/28/2022 Depression Screening 04/28/2022 HIV Screening 04/28/2022 Hepatitis C Screening 04/28/2022 Social Influencers of Health Screening 04/28/2022 DTaP,Tdap,and Td Vaccines (2 - Td or Tdap) 09/09/2022 09/09/2012 Pneumococcal Vaccine: 50+ Years (1 of 1 - PCV) 10/19/2023 Zoster Vaccines (1 of 2) 10/19/2023 COVID-19 Vaccine (1 - season) 2024 Influenza Vaccine (#1) 2024 [...] patient's age to complete this topic Meningococcal B Vacine Aged Out No lo nger eligible based on patient's age to complete [...] recommended Brendon Avina MD IMG XR PROCEDURES Final Result from Last 3 Months or Most Recently Relevant to Health Maintenance Care Teams [employer] Guidance Counselor Relationship Specialty Start Date End Date Brendon Avina MD [address] [place] [address] [address] [facility] [place] [address] PCP - General Internal Medicine 09/04/21
--- OUTSIDE RECORDS SUMMARY | 2024-08-19 17:45 | XMS_ITS | Patient Health Record ---
Author Organization [facility] Address [address] [place] [address] Support Name Relationship Address Phone RADHA AZEVEDO Guarantor Unknown Reason For Referral No Information Medications Medication [...] Status W/U Status Risk Notes Problem Hypothyroidism (18276031) Unspecified hypothyroidism (244.9) Active confirmed Major Problem Obesity (045688369) Obesity, unspecified (278.00) Active confirmed Major Problem Depressive disorder (92354186) Depressive disorder, not elsewhere classified (311) Active confirmed Major Problem Gynecological examination normal (404776393758687) Routine gynecological examination (V72.31) Active confirmed Diag Plan Of Treatment No Information Insurance Providers Payer Name Payer Address Payer Phone Subscriber Number Group Number Insured Name Patient Relationship to Insured Coverage Start Date Coverage End Date [facility] [address] [place] [address] [id number] RADHA AZEVEDO Self - patient is the insured
== END 2024-08-19 15:51 | disposition home or self-care (01) ==
PROVIDERS: PCP Internal Medicine; Visit Provider Surgery
DX: K64.8 Other hemorrhoids (principal)
CPT/HCPCS: 99024

== ENCOUNTER 2024-08-26 08:33 | Outpatient (AMB) | payer OTHER, SELFPAY ==
--- NOTE | 2024-08-26 08:41 | MHC.PC.OV ---
Vital Signs 08/26/24 08:43 Height 5 ft 4 in Weight 171 lb 6 oz BMI 29.4 BP 110/78 Blood Pressure Location Lt brachial Position Sitting Pulse 86 Pulse Source Pulse Oximeter Temp 97.1 F Temp Source Temporal Artery Scan Pulse Oximetry (%) 97 Oxygen Delivery Method Room Air Intake Visit Reasons: 3 Month F/U Intake Note: Patient is here to follow up on Hypercholesterolemia, MEI, Hypothyroid. Adolescent Coordinator Required: No Regulatory Compliance Manager: Not Required per policy Accompanied by: Self / Same As Patient Allergies erythromycin base [From ERYTHROCIN] Allergy (Intermediate, Verified 08/26/24 08:42) HIVES Sulfa (Sulfonamide Antibiotics) [Sulfa (Sulfonamides)] Allergy (Intermediate, Verified 08/26/24 08:42) RASH Tobacco use date assessed: 08/26/24 Dental Screening Dental Screen Date: 05/27/24 [facility] Medical History (Updated 08/26/24 @ 08:51 by Brendon Avina MD) MEI on CPAP Hemorrhoids with complication Family history of colon cancer Colon cancer screening Polycystic ovarian syndrome Asthma Obsessive compulsive disorder History of renal calculi Cholelithiasis Hypothyroid Recurrent major depression Obesity (BMI 30-39.9) Surgical History (Updated 08/26/24 @ 08:48 by ZULLY Robbins) History of hemorrhoidectomy Hx of LASIK History of colonoscopy H/O abdominal surgery History of ankle surgery History of section Family History Father Cancer Renal cancer Myocardial infarct Lymphoma Mother No problems noted. Sister No problems noted. Sister No problems noted. Son No problems noted. Maternal Grandmother Colon cancer Other Mental health disorder Social History Housing: House Are you a primary care team coordinator scheduler to a significant other at home: No Do you presently have visiting nurse or other home services: No Alcohol intake: current Alcohol intake frequency: holidays/special occasions only Comment: once Q 2 week 1 drinks Patient Tobacco Use Status: Former Tobacco user Tobacco use type: Cigarette Years Smoked: Quit 2015 e-Cigarette/Vaping Use: Never Used Second Hand Smoke Exposure: Yes service: No Current occupational status: employed Cognitive needs: No Hearing needs: No Vision needs: No Female Reproductive History Menstrual Age of Menarche: 11 Questionnaire Thrive Questionnaire Date Thrive assessed: 05/27/24 CHARLEY-7 AMB Questionnaire CHARLEY-7 Date CHARLEY - 7 assessed: 05/27/24 Source: Developed by Drs. Sammy Cristobal, Yoli Vasquez, Thor Nash and colleagues, with an educational alexa from [employer]. Physical exam (Primary Care) Vital Signs: Last Vital Signs Temp 97.1 F 08/26/24 08:43 Pulse 86 08/26/24 08:43 BP 110/78 08/26/24 08:43 Pulse Ox 97 08/26/24 08:43 Oxygen Delivery Method Room Air 08/26/24 08:43 BMI result Body Mass Index 29.4 Tobacco/Smoking Status: Tobacco use Status Tobacco use date assessed 08/26/24 08/26/24 08:49 Patient Tobacco Use Status Former Tobacco user 08/26/24 08:49 Tobacco use type Cigarette 08/26/24 08:49 e-Cigarette/Vaping Use Never Used 08/26/24 08:49 Thrive Assessment: Date of Thrive Assessment Date Thrive assessed 05/27/24 08/26/24 08:49 Const General: alert; No acute distress Eyes Conjunctivae: conjunctivae normal Resp Auscultation: clear to auscultation bilaterally Cardio Rate: regular rate Rhythm: regular rhythm GI Inspection: Yes normal to inspection Extrem General: Yes normal to inspection and No edema Coding Level of Care Code Est Pt Level 4 (84860) Diagnoses Hemorrhoid K64.9 Hypercholesterolemia E78.00 Impaired glucose tolerance R73.02 Generalized anxiety disorder F41.1 Obstructive sleep apnea G47.33 Cholelithiasis K80.20 History of renal calculi Z87.442 Overweight (BMI 25.0-29.9) E66.3 Assessment & Plan Assessment & Plan (1) Hemorrhoid: Comment: Status post hemorrhoidectomy July 2024 Code(s): K64.9 - Unspecified hemorrhoids Category: Medical Plan: Patient follows up with the surgeon and doing good (2) Hypercholesterolemia: Code(s): E78.00 - Pure hypercholesterolemia, unspecified Category: Medical Plan: Avoid fried foods, chicken skin, eggs, butter margarine, pastries and meat. Be it pork or beef they have a lot of cholesterol November 2023 last done (3) Impaired glucose tolerance: Code(s): R73.02 - Impaired glucose tolerance (oral) Category: Medical Plan: Decrease the amount of carbohydrate intake, pasta, bread, rice and potatoes are all sugar and that is aside from all the sweet stuff, remember that fruits are good but they are Sweet also. (4) Generalized anxiety disorder: Comment: Q 2 weeks counselling and therapy Code(s): F41.1 - Generalized anxiety disorder Category: Medical Plan: Continuing with Wellbutrin fluoxetine. (5) Obstructive sleep apnea: Comment: November 2021 Code(s): G47.33 - Obstructive sleep apnea (adult) (pediatric) Category: Medical Plan: Continue to use the CPAP more than 4 hours a night and benefits from this. (6) Cholelithiasis: Code(s): K80.20 - Calculus of gallbladder without cholecystitis without obstruction Category: Medical Plan: Low-fat diet (7) History of renal calculi: Code(s): Z87.442 - Personal history of urinary calculi Category: Medical Plan: Keep well hydrated (8) Overweight (BMI 25.0-29.9): Code(s): E66.3 - Overweight Category: Medical Plan: Continuing with Zepbound. Orders: Orders Lipid Panel 3 Months E78.00 - Pure hypercholesterolemia, unspecified, G47.33 - Obstructive sleep apnea (adult) (pediatric) Vitamin B12 and Folate 3 Months G47.33 - Obstructive sleep apnea (adult) (pediatric) UA CC w/rflx Micro + Cult 3 Months G47.33 - Obstructive sleep apnea (adult) (pediatric), R30.0 - Dysuria Complete Blood Count Auto Diff 3 Months G47.33 - Obstructive sleep apnea (adult) (pediatric) Comprehensive Met. Panel 3 Months G47.33 - Obstructive sleep apnea (adult) (pediatric) Free T4 (Free Thyroxine) 3 Months G47.33 - Obstructive sleep apnea (adult) (pediatric) Thyroid Stimulating Hormone 3 Months G47.33 - Obstructive sleep apnea (adult) (pediatric) Hemoglobin A1c 3 Months G47.33 - Obstructive sleep apnea (adult) (pediatric) Referrals Sleep Medicine Referral G47.33 - Obstructive sleep apnea (adult) (pediatric)
[2024-08-26 08:43] VITALS: BP 110/78; PULSE 86; TEMP 36.2; O2SAT 97; BMI 29.4
--- OUTSIDE RECORDS SUMMARY | 2024-08-26 08:46 | XMS_ITS | Patient Health Record ---
Author Organization [facility] Address [address] [place] [address] Support Name Relationship Address Phone RADHA AZEVEDO [...] Status W/U Status Risk Notes Problem Hypothyroidism (72259327) Unspecified hypothyroidism (244.9) Active confirmed Major Problem Obesity (103505825) Obesity, unspecified (278.00) Active confirmed Major Problem Depressive disorder (79113023) Depressive disorder, not elsewhere classified (311) Active confirmed Major Problem Gynecological examination normal (905558394916590) Routine gynecological examination (V72.31) Active confirmed Diag Plan Of Treatment No Information Insurance Providers Payer Name Payer Address Payer Phone Subscriber Number Group Number Insured Name Patient Relationship to Insured Coverage Start Date Coverage End Date [facility] [address] [place] [address] [phone] [id number] RADHA AZEVEDO Self - patient is the insured
--- OUTSIDE RECORDS SUMMARY | 2024-08-26 08:46 | XMS_ITS | Clinical Summary ---
Author Organization [facility] Address [address] [place] [address] Care Team Providers Care Falsework Builder Name Role Phone Brendon Avina MD Primary Care Provider [phone] Surgical History Surgery Date Site/Laterality Comments OTHER SURGICAL HISTORY PROCEDURE: [place] REPAIR PRIMARY OPEN/PRQ RUPTURED ACHILLES TENDON SECTION [...] 09/08/2024 3:50 PM EDT Appointment Radiology Department [address] [address] Health Maintenance Due Date Last Done Comments [...] Vaccine (1 - season) 2024 Influenza Vaccine (Season Ended) 2025 03/05/2018, 02/06/2017 Breast Cancer Screening 08/25/2025 08/26/19, 08/26/2023, 08/16/2022, [...] age to complete this topic Meningococcal B Vaccine Aged Out No l onger eligible based on patient's age to complete [...] Routine annual screening mammography is recommended Brendon Aivna MD IMG XR PROCEDURES Final Result from Last 3 Months or Most Recently Relevant to Health Maintenance Care Teams Falsework Builder Relationship Specialty Start Date End Date Brendon Avina MD [address] [place] [address] [address] [facility] [place] [address] PCP - General Internal Medicine 09/04/21
== END 2024-08-26 09:06 | disposition home or self-care (01) ==
LOC: HO.HMCH 08:33
PROVIDERS: PCP Internal Medicine; Visit Provider Internal Medicine
DX: K64.9 Unspecified hemorrhoids (principal); E78.00 Pure hypercholesterolemia, unspecified; R73.02 Impaired glucose tolerance (oral); F41.1 Generalized anxiety disorder; G47.33 Obstructive sleep apnea (adult) (pediatric); K80.20 Calculus of gallbladder without cholecystitis without obstruction; Z87.442 Personal history of urinary calculi; E66.3 Overweight

== ENCOUNTER → 2024-08-26 08:33 | Outpatient (BNVA) | payer OTHER, SELFPAY | PROVIDERS: PCP Internal Medicine; Visit Provider Internal Medicine | DX: Z13.89 Encounter for screening for other disorder (principal) ==

== ENCOUNTER 2024-10-16 07:51 | Outpatient (AMB) | payer OTHER, SELFPAY ==
--- OUTSIDE RECORDS SUMMARY | 2024-10-16 07:53 | XMS_ITS | Patient Health Record ---
Author Organization [facility] Address [address] [place] [address] Support Name Relationship Address Phone RADHA AZEVEDO Guarantor Unknown [phone] Reason For Referral No Information Medications Medication [...] Status W/U Status Risk Notes Problem Hypothyroidism (76082086) Unspecified hypothyroidism (244.9) Active confirmed Major Problem Obesity (715209227) Obesity, unspecified (278.00) Active confirmed Major Problem Depressive disorder (80077374) Depressive disorder, not elsewhere classified (311) Active confirmed Major Problem Gynecological examination normal (000882216063515) Routine gynecological examination (V72.31) Active confirmed Diag Plan Of Treatment No Information Insurance Providers Payer Name Payer Address Payer Phone Subscriber Number Group Number Insured Name Patient Relationship to Insured Coverage Start Date Coverage End Date [facility] [address] [place] [address] [id number] RADHA AZEVEDO Self - patient is the insured
--- NOTE | 2024-10-16 07:58 | A.OFFVIS_ITS ---
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 Currently using CPAP. DME- Reliable. Compliance in chart(90/90 days, >=4hrs-90days, average usage 7hrs 21min, Med pressure 10.8, med leaks 2.6, AHI-2.9) Allergies erythromycin base [From ERYTHROCIN] Allergy (Intermediate, Verified 10/16/24 08: 07) HIVES Sulfa (Sulfonamide Antibiotics) [Sulfa (Sulfonamides)] Allergy (Intermediate, Verified 10/16/24 08:07) RASH HPI Comments Details: 48 year old female new patient with asthma referred to us by pcp. 2021 HST cw AHI of 38 and o2 carlos eduardo to 77% and <88% for 10min, with nocturnal hypoxemia. MEI compliance report 07/16/2024 - 2024 total days usage is 90/90 days and 7hours and 20min CPAP auto press 6-20cm and press median 10.6 and leaks median 10.8 AHI 2.9 She goes to bed at 11pm and gets up at 6am, zero bathroom breaks. 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 She feels fatigued in the morning, takes naps on the weekend for hour and 15 min naps on weekends, and she grinds her teeth and has a mouth gaurd and does not like to use it due to the cpap apparatus being cumbersome. She gets morning headaches daily which improves after her morning coffee. She drinks 4 cups of coffee a day. RLS symptoms denies. Denies any parasomnias. FH of Parkinsons, aunt maternal diagnosed at 65 years of age and both sisters have Lyme disease, grandmother stroke. Cognitive difficulties forgetting tasks, and what year, recall, with lack of concentration and brain gog. Mood is poor and with the onset of delaney-menopause, she has hot-flashes, irritability, poor sleep patterns. She likes to garden, and does yard work. She is a former tobacco somoker and quit in 2016, She washes her mask daily, rinses her tubing, changes filters and fills reservoir with water as needed. oximetry overnight for hypoxemia PFSH Medical History MEI on CPAP Hemorrhoids with complication Family history of colon cancer Colon cancer screening Polycystic ovarian syndrome Asthma Obsessive compulsive disorder History of renal calculi Cholelithiasis Hypothyroid Recurrent major depression Obesity (BMI 30-39.9) Surgical History History of hemorrhoidectomy Hx of LASIK History of colonoscopy H/O abdominal surgery History of ankle surgery History of section Family History Father Cancer Renal cancer Myocardial infarct Lymphoma Mother No problems noted. Sister No problems noted. Sister No problems noted. Son No problems noted. Maternal Grandmother Colon cancer Other Mental health disorder Social History Housing: House Are you a primary caretaker resort to a significant other at home: No Do you presently have visiting nurse or other home services: No Alcohol intake: current Alcohol intake frequency: holidays/special occasions only Comment: once Q 2 week 1 drinks Patient Tobacco Use Status: Former Tobacco user Tobacco use type: Cigarette Years Smoked: Quit 2015 e-Cigarette/Vaping Use: Never Used Second Hand Smoke Exposure: Yes service: No Current occupational status: employed Cognitive needs: No Hearing needs: No Vision needs: No Female Reproductive History Menstrual Age of Menarche: 11 Review of Systems Const All systems reviewed & are unremarkable except as noted in HPI and below Physical Exam Vital Signs: Last Vital Signs Pulse 74 10/16/24 08:01 BP 112/74 10/16/24 08:01 Pulse Ox 99 10/16/24 08:01 Oxygen Delivery Method Room Air 10/16/24 08:01 BMI result Body Mass Index 28.5 Const General: cooperative, comfortable and no acute distress Nutritional Appearance: average body habitus Orientation/consciousness: patient oriented x3 HEENT Face and sinus: Yes face symmetric Teeth and gingiva: other (Mallmpti score of 3) Eyes Pupils: Equal, round and reactive pupils present Resp Effort & Inspection: normal respiratory effort and able to speak in complete sentences Neuro General: patient oriented x3 and moves all extremities Cranial nerves: Yes Facial sensation intact/muscles of mastication intact, Yes Equal, round and reactive pupils present, Yes Normal accommodation reflex present, Yes Nystagmus not present, Yes Normal facial strength present, Yes Midline tongue present, Yes Ability to bilaterally rotate head present and Yes Ability to bilaterally elevate shoulders present Cognition (Neuro): normal cognition Gait exam (Neuro): Normal gait present Motor exam (neuro): 5/5 motor strength present throughout and Normal motor muscle tone present throughout Coordination: [id number] test normal Psych Appearance: grossly normal Thought process: Normal thought process present Thought content: Normal thought content present Results Reviewed Results Reviewed: 2021 HST cw AHI of 38 and o2 carlos eduardo to 77% and <88% for 10min, with nocturnal hypoxemia. MEI compliance report 07/16/2024 - 2024 total days usage is 90/90 days and 7hours and 20min CPAP auto press 6-20cm and press median 10.6 and leaks median 10.8 AHI 2.9 Assessment & Plan Assessment & Plan (1) Obstructive sleep apnea: Comment: November 2021 Code(s): G47.33 - Obstructive sleep apnea (adult) (pediatric) Category: Medical (2) Excessive daytime sleepiness: Code(s): G47.19 - Other hypersomnia Category: Medical (3) Nocturnal hypoxemia: Code(s): G47.34 - Idiopathic sleep related nonobstructive alveolar hypoventilation Category: Medical Plan MEI on cpap and compliant, will send for overnight pulse oximetry to assess for hypoxemia. Excessive daytime fatigue, reviewed labs with patient today, all wnl today, will assess MMA/ Homocysteine, Ferritin, lipids, a1c. Start magnesium 400mg daily at night to improve sleep. Orders: Orders Hemoglobin A1c Today G47.19 - Other hypersomnia Methylmalonic Acid Today G47.19 - Other hypersomnia, G47.9 - Sleep disorder, unspecified, R53.83 - Other fatigue Homocysteine Today G47.19 - Other hypersomnia, G47.9 - Sleep disorder, unspecified, R53.83 - Other fatigue Ferritin Today G47.19 - Other hypersomnia Lipid Panel with Reflex Today G47.19 - Other hypersomnia Overnight Pulse Oximetry Today G47.34 - Idiopathic sleep related nonobstructive alveolar hypoventilation Patient Instructions: Sleep Hygiene provided: set a scheduled bedtime and wake time to help regulate the circadian rhythm and balance the release of pituitary hormones. Sleep in a dark room, temperatures below 68 degrees, and no devices n bed. Limit caffeinated products 6 hours prior to bed, and limit fluids 2-4 hours prior to bed. Gentle night yoga, diffusing essential oils, and playing soft music can be relaxing. Coding Level of Care Code New Pt Level 4 (67093) Diagnoses Obstructive sleep apnea G47.33 Excessive daytime sleepiness G47.19 Nocturnal hypoxemia G47.34 Time Spent (min) 30 Comment Evaluation Sleep Questionnaire Difficulty falling asleep: No Difficulty staying asleep?: No Number of arousals: 5 adjusting headgear Snoring: No Witnessed apneas: No Gasping arousals: No Nocturia: No GERD: No Vivid dreams: No Acting out dreams: No Abnormal behavior in sleep: No Abnormal movements in sleep: No Morning headaches: Yes Excessive daytime sleepiness: Yes Daytime naps: Yes Restless legs: No Hallucinations: No Sleep paralysis: No Drop attacks: No Sleep Study: Yes CPAP: Yes
[2024-10-16 08:01] VITALS: BP 112/74; PULSE 74; O2SAT 99; BMI 28.5
== END 2024-10-16 08:55 | disposition home or self-care (01) ==
LOC: HO.HSMS 07:52
PROVIDERS: PCP Internal Medicine; Visit Provider Physician Assistant Medical
DX: G47.33 Obstructive sleep apnea (adult) (pediatric) (principal); G47.19 Other hypersomnia; G47.34 Idiopathic sleep related nonobstructive alveolar hypoventilation
CPT/HCPCS: 99204

== ENCOUNTER 2024-12-05 07:49 | Outpatient (REF) | payer OTHER, SELFPAY ==
--- OUTSIDE RECORDS SUMMARY | 2024-12-05 07:52 | XMS_ITS | Clinical Summary ---
Author Organization [facility] [address] [place] [address] [place] [address] Phone Care Team Providers Care Lead Refiner Name Role Phone Brendon Avina MD Primary Care Provider [phone] Encounters Date Type Department Care Team Description 09/08/2024 3:29 PM EDT - 09/08/2024 11:59 PM EDT Hospital Encounter Radiology Department [address] [phone] Encounter for screening mammogram for breast cancer Discharge Disposition: Home or Self Care from Last 3 Months Surgical History Surgery Date Site/Laterality Comments OTHER SURGICAL HISTORY PROCEDURE: [place] REPAIR PRIMARY OPEN/PRQ RUPTURED ACHILLES TENDON SECTION PROCEDURE: HISTORICAL DELIVERY HERNIA REPAIR PROCEDURE: HISTORICAL HERNIA REPAIR/UMB EYE SURGERY Bilateral PROCEDURE: HISTORICAL EYE SURGERY; COMMENT: JENY Medical History Medical History Date Comments Hypothyroidism [...] = 0.6 oz pur e alcohol) Comments No Sex and Gender Information Value Date Recorded Sex Assigned at Not on file Legal Sex Female 10:21 AM EST Gender Identity Not on file Sexual Orientation Not on file Obstetrics History Para Term AB IAB SAB Ectopic Multiple Livin g Live Births 1 Date Outcome GA Total Labor Labor/2nd/3rd Weight Sex Type Anes PTL Nitza A1 A5 Name Clin Term Last Filed Vital Signs Vital Sign Reading [...] Care Team (Late st Contact Info) Description 09/15/2025 3:40 PM EDT Appointment Radiology Department [address] [address] Health Maintenance Due Date Last Done Comments Hepatitis B Vaccines (1 of 3 - 19+ 3-dose series) 1992 Cervical Cancer Screening: HPV 1994 Cholesterol Screening (Lipid Panel) 04/28/2022 Colorectal Cancer Screening: Colonoscopy 04/28/2022 Depression Screening 04/28/2022 HIV Screening 04/28/2022 Hepatitis C Screening 04/28/2022 Social Influencers of Health Screening 04/28/2022 Pneumococcal Vaccine: 50+ Years (1 of 1 - PCV) 10/19/2023 Zoster Vaccines (1 of 2) 10/19/2023 COVID-19 Vaccine ( - 2023- season) 2024 Influenza Vaccine (#1) 2025 03/05/2018, 2016 Breast Cancer Screening 09/08/2026 09/09/19, 08/26/2023, 08/26/2023, Additional history exists DTaP,Tdap,and Td Vaccines (3 - Td or Tdap) 08/31/2032 08/31/2022, 09/09/2012 HIB Vaccines Aged Out No longer eligi [...] Procedure Name Priority Date/Time Associated Diagnosis Comments MG MAMMO DIGITAL SCREENING W AMBROSIO BILAT Routine 09/08/2024 3:54 PM EDT Encounter for screening mammogram for breast cancer from Last 3 Months Results * MG Mammo Digital Screening w Ambrosio bilat (09/08/2024 3:54 PM EDT) Anatomical Region Laterality Modality Breast Bilateral Mammography 09/09/2024 10:1 1 AM EDT Impressions 09/09/2024 10:13 AM EDT No mammographic evidence for malignancy. BI-RADS CATEGORY: 1 - NEGATIVE RECOMMENDATION: Screening bilateral mammogram is recommended in 1 year. Mammo Location: [facility], [address] [place] [address], [id number], . -------- FINAL REPORT -------- Dictated By: Nighat Schaefer Dictated Date: 09/09/2024 10:11 ET Assigned Physician: Nighat Schaefer Reviewed and Electronically Signed By: Nighat Schaefer Signed Date: 09/09/2024 10:13 ET Workstation ID: [id number] Transcribed By: Self Edit Transcribed Date: 09/09/2024 10:11 ET Narrative 09/09/2024 10:13 AM EDT Bilateral screening mammogram. CLINICAL: 48 years old, Female, routine annual exam. COMPARISON: Prior mammograms, latest from 08/26/2023. TECHNIQUE: Bilateral MLO and CC views were obtained digitally with 2-D C views and 3-D mammogram (digital breast tomosynthesis). Computer-aided detection was utilized in evaluation of this exam (CAD). FINDINGS: There is no evidence of suspicious mass or architectural distortion. No worrisome calcifications are evident. There has been no significant change from prior exam(s). BREAST DENSITY: B - There are scattered areas of fibroglandular density. Procedure Note Nighat Schaefer MD - 09/09/2024 Bilateral screening mammogram. CLINICAL: 48 years old, Female, routine annual exam. COMPARISON: Prior mammograms, latest from 08/26/2023. TECHNIQUE: Bilateral MLO and CC views were obtained digitally with 2-D Cviews and 3-D mammogram (digital breast tomosynthesis). Computer-aideddetection was utilized in evaluation of this exam (CAD). FINDINGS: There is no evidence of suspicious mass or architectural distortion. Noworrisome calcifications are evident. There has been no significantchange from prior exam(s). BREAST DENSITY: B - There are scattered areas of fibroglandular density. IMPRESSION: No mammographic evidence for malignancy. BI-RADS CATEGORY: 1 - NEGATIVE RECOMMENDATION: Screening bilateral mammogram is recommended in 1 year. Mammo Location: [facility], [address] [place] [address], [id number], . -------- FINAL REPORT -------- Dictated By: Nihgat Schaefer Dictated Date: 09/09/2024 10:11 ET Assigned Physician: Nighat Schaefer Reviewed and Electronically Signed By: Nighat Schaefer Signed Date: 09/09/2024 10:13 ET Workstation ID: [id number] Transcribed By: Self Edit Transcribed Date: 09/09/2024 10:11 ET Brendon Avina MD IMG BI PROCEDURES Final Result from Last 3 Months Insurance [facility] Care Teams Lead Refiner Relationship Specialty Start Date End Date Brendon Avina MD [address] [facility] [address] [facility] [place], [place] [id number] PCP - General Internal Medicine 09/04/21
[2024-12-05 07:58] LABS: MANUAL DIFF FLAG NO
[2024-12-05 08:16] LABS: Hematocrit 39.7 % (37.0-47.0); Hemoglobin 13.9 g/dl (12.0-16.0); Imm Gran Abs Auto 0.02 X10*3/uL (0.00-0.03); Imm Gran Pct Auto 0.3 % (0.0-0.4); Lymphocytes Absolute Auto 2.4 X10*3/uL (1.2-4.9); Mean Corpuscular HGB Conc 35.0 g/dl (31.0-35.0); Mean Corpuscular Hemoglobin 32.3 pg (27.0-33.0); Mean Corpuscular Volume 92.3 fL (80.0-98.0); NRBC Abs Auto 0.000 X10*3/uL (0.0-0.012); NRBC Pct Auto 0.0 /100WBC (0.0-0.2); Platelet Count 281 X10*3/uL (160-400); Red Blood Count 4.30 X10*6/uL (4.20-5.50); White Blood Count 6.8 X10*3/uL (4.8-10.8)
[2024-12-05 08:20] LABS: Hemoglobin A1C 102.0375 umol/L; Total Hemoglobin (HGBA1C) 3640.1048 umol/L
[2024-12-05 08:38] LABS: Appearance Urine Clear; Glucose Urine UA Negative (Negative); PH 7.0 (5.0-9.0); Specific Gravity - Urine 1.020 (1.005-1.025)
[2024-12-05 09:11] LABS: Alanine Aminotransferase 15 U/L (0-31); Albumin Level 4.6 g/dL (3.5-5.0); Alkaline Phosphatase 40 U/L (39-117); Anion Gap 9 (12-20); Aspartate Amino Transferase 18 U/L (5-31); Blood Urea Nitrogen 10 mg/dL (9-16); Calcium 9.6 mg/dL (8.4-10.2); Carbon Dioxide 29 mmol/L (22-29); Chloride 107 mmol/L (96-108); Cholesterol 159 mg/dL (<200); Estimated Glomerular Filt Rate > 60; HDL Cholesterol 47 mg/dL (>40); Potassium 5.0 mmol/L (3.3-5.1); Sodium 140 mmol/L (135-145); Total Protein 7.1 g/dL (6.5-8.0); Triglycerides 100 mg/dL (<150)
[2024-12-05 09:32] LABS: Free T4 (Free Thyroxine) 0.99 ng/dL (0.71-1.85); Thyroid Stimulating Hormone 1.65 uIU/mL (0.32-4.0)
[2024-12-05 09:33] LABS: Folate 5.9 ng/mL (> or = 4.0); Vitamin B12 340 pg/mL (200-900)
== END 2024-12-05 07:50 | disposition home or self-care (01) ==
LOC: HO.LAB 07:49
PROVIDERS: PCP Internal Medicine; Visit Provider Internal Medicine
DX: G47.33 Obstructive sleep apnea (adult) (pediatric) (principal); E78.00 Pure hypercholesterolemia, unspecified; R30.0 Dysuria
CPT/HCPCS: 36415; 80053; 80061; 81003; 82607; 82746; 83036; 84439; 84443; 85025

== ENCOUNTER 2024-12-11 14:35 | Outpatient (AMB) | payer OTHER, SELFPAY ==
--- OUTSIDE RECORDS SUMMARY | 2024-12-11 14:38 | XMS_ITS | Patient Health Record ---
Author Organization [facility] Address [address] [place] [address] Support Name Relationship Address Phone RADHA AZEVEDO Guarantor Unknown Reason For Referral No Information Medications Medication SIG (Take, Route, Fr equency, Duration) Notes Start Date End Date Status TriNessa (28) 0.035MG 1 ORAL daily; Duration: -3 Jj-MJ 0 01/23/2013 Active Synthroid 25MCG 1 ORAL daily; Duration: -3 Jj-MJ 012 Active buPROPion HCl 150MG SR 1 ORAL twice suzan y; Duration: -3 Jj-MJ 01/24/2012 Active Problems Problem Type SNOMED Code ICD Code Onset Dates Problem Status W/U Status Risk Notes Problem Hypothyroidism (09337428) Unspecified hypothyroidism (244.9) Active confirmed Major Problem Obesity (922221061) Obesity, unspecified (278.00) Active confirmed Major Problem Depressive disorder (70161809) Depressive disorder, not elsewhere classified (311) Active confirmed Major Problem Gynecological examination normal (780661171708029) Routine gynecological examination (V72.31) Active confirmed Diag Plan Of Treatment No Information Insurance Providers Payer Name Payer Address Payer Phone Subscriber Number Group Number Insured Name Patient Relationship to Insured Coverage Start Date Coverage End Date [facility] [address] [place] [address] [phone] [id number] RADHA AZEVEDO Self - patient is the insured
--- OUTSIDE RECORDS SUMMARY | 2024-12-11 14:38 | XMS_ITS | Clinical Summary ---
Author Organization [address] Address [address] [place] [address] Phone Care Team Providers Care Feed In Worker Name Role Phone Brendon Avina MD Primary Care Provider [phone] Surgical History Surgery Date Site/Laterality Comments OTHER SURGICAL HISTORY PROCEDURE: NH REPAIR PRIMARY OPEN/PRQ RUPTURED ACHILLES TENDON SECTION [...] Ectopic Multiple Livin g Live Births 1 1 1 1 Date Outcome GA Total Labor Labor/2nd/3rd [...] 09/15/2025 3:40 PM EDT Appointment Radiology Department [address] [address] Health Maintenance Due Date Last Done Comments Hepatitis B Vaccines (1 of 3 - 19+ 3-dose series) 1992 Cervical Cancer Screening: HPV 1994 Cholesterol Screening (Lipid Panel) 04/28/2022 Colorectal Cancer Screening: Colonoscopy 04/28/2022 HIV Screening 04/28/2022 Hepatitis C Screening 04/28/2022 Social Influencers of Health Screening 04/28/2022 Pneumococcal Vaccine: 50+ Years (1 of 1 - PCV) 10/19/2023 Zoster Vaccines (1 of 2) 10/19/2023 COVID-19 Vaccine ( - 2023- season) 2024 Depression Screening 05/20/2024 Influenza Vaccine (#1) 2025 03/05/2018, 2016 Breast [...] for breast cancer from Last 3 Months or Most Recently Relevant to Health Maintenance Results * MG Mammo Digital Screening w Ambrosio bilat (09/08/2024 3:54 PM EDT) Anatomical Region Laterality Modality Breast Bilateral Mammography 09/09/2024 10:1 1 AM EDT Impressions 09/09/2024 10:13 AM EDT No mammographic evidence for malignancy. BI-RADS CATEGORY: 1 - NEGATIVE RECOMMENDATION: Screening bilateral mammogram is recommended in 1 year. Mammo Location: [facility], [address] [place] [address], [id number], . -------- FINAL REPORT -------- Dictated By: Nighat Schaefer Dictated Date: 09/09/2024 10:11 ET Assigned Physician: Nighat Schaefer Reviewed and Electronically Signed By: Nighat Schaefer Signed Date: 09/09/2024 10:13 ET Workstation ID: [id number] Transcribed By: Self Edit Transcribed Date: 09/09/2024 [...] is recommended in 1 year. Mammo Location: [facility], [address] [place] [address], [id number], . -------- FINAL REPORT -------- Dictated By: Nighat Schaefer Dictated Date: 09/09/2024 10:11 ET Assigned Physician: Nighat Schaefer Reviewed and Electronically Signed By: Nighat Schaefer Signed Date: 09/09/2024 10:13 ET Workstation ID: [id number] Transcribed By: Self Edit Transcribed Date: 09/09/2024 10:11 ET Brendon Avina MD IMG BI PROCEDURES Final Result from Last 3 Months or Most Recently Relevant to Health Maintenance Insurance [facility] Care Teams Feed In Worker Relationship Specialty Start Date End Date Brendon Avina MD [address] [place] [address] [address] [facility] [place], [place] [id number] PCP - General Internal Medicine 09/04/21
--- NOTE | 2024-12-11 14:49 | MHC.PC.OV ---
Vital Signs 12/11/24 14:50 Height 5 ft 4 in Weight 160 lb BMI 27.5 BP 120/66 Blood Pressure Location Lt brachial Position Sitting Pulse 96 Pulse Source Pulse Oximeter Temp 97.1 F Temp Source Temporal Artery Scan Pulse Oximetry (%) 99 Oxygen Delivery Method Room Air Intake Visit Reasons: Annual exam Intake Note: Patient is here today for a physical. Service Parts Driver Required: No Chimney Supervisor Brick: Not Required per policy Accompanied by: Self / Same As Patient Allergies erythromycin base (From ERYTHROCIN) Allergy (Intermediate, Verified 12/11/24 14:50) HIVES Sulfa (Sulfonamide Antibiotics) (Sulfa (Sulfonamides)) Allergy (Intermediate, Verified 12/11/24 14:50) RASH Medication List - Last Reconciled 12/11/24 by Brendon Avina MD [AUTOPAP mode 6-20 cm H2O humidified AIR As directed] bupropion HCl SR (Wellbutrin SR) 200 mg PO DAILY cholecalciferol (vitamin D3) 25 mcg PO DAILY docusate sodium (Colace) 100 mg PO BID estradiol 1 mg PO DAILY fluoxetine 10 mg PO DAILY ibuprofen 600 mg PO Q6H PRN levonorgestrel (Mirena) 1 device intrauterine DIRECTED levothyroxine 50 mcg PO DAILY 90 days psyllium husk (Daily Fiber) 0.52 grams PO BEDTIME psyllium seed (sugar) (Metamucil (sugar) oral powder) 1 tbsp PO BID semaglutide (weight loss) (Wegovy) 0.25 mg (0.5 mL) subcut QWEEK sennosides-docusate sodium 8.6-50 mg (Senna Plus) 2 tab-caps (2 x 8.6-50 mg) PO BEDTIME 30 days spironolactone 100 mg PO BID 90 days Tobacco use date assessed: 12/11/24 Dental Screening Dental Screen Date: 05/27/24 HPI Annual exam HPI Details dizzy, BPPV PFSH Medical History (Updated 12/11/24 @ 15:13 by Brendon Avina MD) Obesity (BMI 30-39.9) Morbid obesity MEI on CPAP Hemorrhoids with complication Family history of colon cancer Colon cancer screening Polycystic ovarian syndrome Asthma Obsessive compulsive disorder History of renal calculi Cholelithiasis Hypothyroid Recurrent major depression Surgical History History of hemorrhoidectomy Hx of LASIK History of colonoscopy H/O abdominal surgery History of ankle surgery History of section Family History (Updated 12/11/24 @ 15:15 by Brendon Avina MD) Father Cancer Renal cancer Myocardial infarct Lymphoma Mother No problems noted. Sister No problems noted. Sister No problems noted. Son No problems noted. Maternal Grandmother Colon cancer Paternal Grandfather Myocardial infarct Maternal Grandfather Myocardial infarct Other Mental health disorder Social History (Updated 12/11/24 @ 15:15 by Brendon Avina MD) Housing: House Are you a primary career representative to a significant other at home: No Do you presently have visiting nurse or other home services: No Alcohol intake: current Alcohol intake frequency: holidays/special occasions only Comment: once a month 1 gin and tonic or beer Patient Tobacco Use Status: Former Tobacco user Tobacco use type: Cigarette Years Smoked: Quit 2015 e-Cigarette/Vaping Use: Never Used Second Hand Smoke Exposure: Yes service: No Current occupational status: employed Cognitive needs: No Hearing needs: No Vision needs: No Female Reproductive History Menstrual Age of Menarche: 11 Questionnaire PHQ-9 Over the last 2 weeks, how often have you been bothered by any of the following problems? 1. Little interest or pleasure in doing things: several days 2. Feeling down, depressed, or hopeless: several days 3. Trouble falling or staying asleep, or sleeping too much: not at all 4. Feeling tired or having little energy: several days 5. Poor appetite or overeating: not at all 6. Feeling bad about yourself - or that you are a failure or have let yourself or your family down: not at all 7. Trouble concentrating on things, such as reading the newspaper or watching television: not at all 8. Moving or speaking so slowly that other people could have noticed. Or the opposite - being so fidgety or restless that you have been moving around a lot more than usual: not at all 9. Thoughts that you would be better off or of hurting yourself in some way: not at all Total score: 3 Depression Screening Interpretation: Positive Depression Screening Done: Yes Source: Developed by Drs. Sammy Cristobal, Yoli Vasquez, Thor Nash and colleagues, with an educational alexa from [employer]. Thrive Questionnaire Date Thrive assessed: 12/09/24 I am a: Patient What is your living situation today?: I have a steady place to live Within the past 12 months, did the food you bought not last and you didn't have the money to get more?: Never true Within the past 12 months, did you worry whether your food would run out before you got money to buy more?: Never true Do you have trouble paying for medicines?: No Do you have trouble getting transportation to medical appointments?: No Do you have trouble paying your heating and electricity bill?: No Do you have trouble taking care of your child, family member or friend?: No Do you have trouble with day-to-day activities such as bathing, preparing meals, shopping, managing finances, etc.?: No Are you currently unemployed and looking for a job?: No Are you interested in more education?: No Please select the resources that you would like help with: None Currently or been in a relationship where the following occur: No concerns reported THRIVE Score: 0 AUDIT C Alcohol Use Questionnaire (AUDIT-C) 1. How often do you have a drink containing alcohol?: Monthly or less Total Score: 1 CHARLEY-7 AMB Questionnaire CHARLEY-7 Date CHARLEY - 7 assessed: 12/11/24 Feeling nervous, anxious, or on edge: 1 = Several days Not being able to stop or control worryin = Not at all Worrying too much about different things: 0 = Not at all Trouble relaxin = Nearly every day Being so restless that it is hard to sit still: 0 = Not at all Becoming easily annoyed or irritable: 1 = Several days Feeling afraid as if something awful might happen: 1 = Several days Total CHARLEY-7 score (0-4 normal; 5-9 mild; 10-14 moderate; 15-21 severe): 6 Source: Developed by Drs. Sammy Cristobal, Yoli Vasquez, Thor Nash and colleagues, with an educational alexa from [employer]. Review of Systems Const Denies poor appetite and Denies weakness Eyes Denies no additional complaints ENT Reports Normal hearing present, Denies dizziness, Denies nasal congestion, Denies tinnitus and Denies sore throat Card Denies chest pain, Denies syncope, Denies rapid heart rate and Denies dyspnea Resp Denies cough and Denies dyspnea GI Denies change in stool character, Reports constipation, Denies diarrhea, Denies nausea and Denies vomiting Denies urinary frequency, Denies difficulty voiding and Denies dysuria Neuro Reports Normal hearing present, Denies confusion, Denies dizziness, Denies syncope and Denies weakness Psych Denies confusion Physical exam (Primary Care) Vital Signs: Last Vital Signs Temp 97.1 F 12/11/24 14:50 Pulse 96 12/11/24 14:50 BP 120/66 12/11/24 14:50 Pulse Ox 99 12/11/24 14:50 Oxygen Delivery Method Room Air 12/11/24 14:50 BMI result Body Mass Index 27.5 Tobacco/Smoking Status: Tobacco use Status Tobacco use date assessed 12/11/24 12/11/24 14:56 Patient Tobacco Use Status Former Tobacco user 12/11/24 15:15 Tobacco use type Cigarette 12/11/24 15:15 e-Cigarette/Vaping Use Never Used 12/11/24 15:15 PHQ-9: PHQ-9 Score PHQ-9: Total score 3 12/11/24 15:09 Depression Screening Interpretation: Positive Thrive Assessment: Date of Thrive Assessment Date Thrive assessed 12/09/24 12/11/24 14:56 Currently or been in a relationship where the following occur: No concerns reported Const General: No confusion Orientation/consciousness: No confusion HENMT Head: Yes normocephalic Ears: external ears normal and TM's normal bilaterally Face and sinus: Yes normal facial exam Mouth: moist mucous membranes Throat: Yes tonsils normal Eyes Conjunctivae: conjunctivae normal Pupils: Equal, round and reactive pupils present and Pupil accommodation reflex normal Direct Ophthalmoscopy: normal light reflex Neck Neck: No lymphadenopathy Thyroid: Thyroid normal Chest Chest palpation & inspection: normal inspection of the chest Resp Effort & Inspection: normal respiratory effort and no audible wheezes Auscultation: clear to auscultation bilaterally, no crackles, no wheezes and lung sounds not diminished Cardio Rate: regular rate Rhythm: regular rhythm Peripheral pulses: radial pulses present and dorsalis pedis present GI Palpation (GI): no masses Auscultation: normal bowel sounds and normoactive bowel sounds Rectal Exam - Female: deferred Skin General skin exam: no rashes or lesions noted Rashes: no rashes Neuro General: No confusion Cranial nerves: Yes Equal, round and reactive pupils present and Yes Normal hearing present Cognition (Neuro): normal cognition Gait exam (Neuro): Normal gait present Motor exam (neuro): 5/5 motor strength present throughout Deep tendon reflexes (DTR's): Right brachioradialis reflex intensity grade: 2+, Left brachioradialis reflex intensity grade: 2+, Right patellar reflex intensity grade: 2+ and Left patellar reflex intensity grade: 2+ Extrem General: No edema Coding Level of Care Code Est Pt Prev Care 40-64y(98336) Diagnoses Annual physical exam Z00.00 Obstructive sleep apnea G47.33 History of renal calculi Z87.442 Cholelithiasis K80.20 Hypercholesterolemia E78.00 Generalized anxiety disorder F41.1 Impaired glucose tolerance R73.02 Hypothyroid E03.9 Overweight (BMI 25.0-29.9) E66.3 Assessment & Plan Assessment & Plan (1) Annual physical exam: Code(s): Z00.00 - Encounter for general adult medical examination without abnormal findings Category: Medical Plan: Patient is advised to eat healthy, keep well hydrated, keep active and have adequate sleep. (2) Obstructive sleep apnea: Comment: November 2021 Code(s): G47.33 - Obstructive sleep apnea (adult) (pediatric) Category: Medical Plan: Patient follows up with Neurology on the CPAP but will be having an overnight oximetry test (3) History of renal calculi: Code(s): Z87.442 - Personal history of urinary calculi Category: Medical Plan: Keep well hydrated (4) Cholelithiasis: Code(s): K80.20 - Calculus of gallbladder without cholecystitis without obstruction Category: Medical Plan: Low-fat diet (5) Hypercholesterolemia: Code(s): E78.00 - Pure hypercholesterolemia, unspecified Category: Medical Plan: Avoid fried foods, chicken skin, eggs, butter margarine, pastries and meat. Be it pork or beef they have a lot of cholesterol. (6) Generalized anxiety disorder: Comment: Q 2 weeks counselling and therapy Code(s): F41.1 - Generalized anxiety disorder Category: Medical Plan: Continue with counseling and therapy (7) Impaired glucose tolerance: Code(s): R73.02 - Impaired glucose tolerance (oral) Category: Medical Plan: Decrease the amount of carbohydrate intake, pasta, bread, rice and potatoes are all sugar and that is aside from all the sweet stuff, remember that fruits are good but they are Sweet also. (8) Hypothyroid: Code(s): E03.9 - Hypothyroidism, unspecified Category: Medical Plan: Continue with thyroid medication (9) Overweight (BMI 25.0-29.9): Code(s): E66.3 - Overweight Category: Medical Plan: Diet and exercise patient is on semaglutide Plan History of Present Illness The patient is a 49-year-old female presenting for a physical exam and management of chronic conditions. The patient has a history of nephrolithiasis and cholelithiasis, which have not caused recent symptoms. She has been making a concerted effort to stay hydrated to prevent kidney stone formation. The patient has hypothyroidism, managed with thyroid medication, and reports adherence to her treatment regimen. She has obstructive sleep apnea and continues to use CPAP therapy. She reports excessive daytime fatigue and has undergone overnight oximetry testing, which showed improvement in oxygen levels. The patient has generalized anxiety disorder, managed with fluoxetine and Wellbutrin. She has impaired glucose tolerance and hypercholesterolemia, with recent lab results showing normal blood sugar and cholesterol levels. The patient reports dizziness, which she attributes to not eating regularly, and has been advised to maintain a balanced diet. She has experienced vision changes, which she attributes to aging, and is considering seeing an eye doctor for further evaluation. Health Maintenance - Mammogram up to date as of August 2024 - Colonoscopy last done in October 2021 - Blood work in November 2024 showed normal results for blood count, electrolytes, renal function, blood sugar, hemoglobin A1c, liver function, cholesterol, B12, folic acid, and thyroid levels - Advised to maintain a low-fat diet and stay well-hydrated - Encouraged to continue regular exercise and weight management Social History - Alcohol consumption: Drinks alcohol occasionally, about once a month, typically one gin and tonic or one beer - Smoking: Does not smoke - Recreational drugs: Does not use recreational drugs - Exercise: Increased physical activity following weight loss - Diet: Following a low-fat diet Review of Systems - General: Reports excessive daytime fatigue - Neurological: Reports dizziness, denies headaches, syncope, or balance issues - Ophthalmologic: Reports worsening vision, denies eye pain or discharge - Respiratory: Denies dyspnea, cough, or wheezing - Cardiovascular: Denies chest pain, palpitations, or orthopnea - Gastrointestinal: Denies abdominal pain, nausea, or vomiting - Genitourinary: Denies dysuria or hematuria Physical Exam General: Cooperative, overweight, healthy appearing, comfortable, no acute distress and well developed Orientation: Patient oriented x3 Limitations: No limitations Head: Normal to inspection Ears: Hearing grossly normal bilaterally Nose: Normal external nose present Face and sinus: Normal facial exam Eyes: Appearance normal, both eyes and all related structures; patient reports worsening vision attributed to aging Neck: Normal visual inspection and Yes full ROM Respiratory: Normal respiratory effort and able to speak in complete sentences. Clear to auscultation bilaterally Cardiovascular: Regular rate and rhythm. Normal S1 and S2 GI: Normal to inspection. Soft to palpation and nontender; history of gallbladder and kidney stones, no current pain Skin: No rashes or lesions noted Neuro: Patient oriented x3; reports occasional dizziness attributed to not eating Extremities: Normal to inspection Results - Labs: Blood work in November 2024 showed normal blood count, electrolytes, renal function, blood sugar, hemoglobin A1c, liver function, cholesterol, B12, folic acid, and thyroid levels - Tests: Overnight oximetry test showed improvement in oxygen levels Plan The patient will continue using CPAP therapy for obstructive sleep apnea and has been advised to undergo an overnight oximetry test to monitor oxygen levels during sleep. For hypothyroidism, the patient will continue with her current thyroid medication regimen. The patient is encouraged to maintain a low-fat diet and stay well-hydrated to manage nephrolithiasis and cholelithiasis. For generalized anxiety disorder, the patient will continue with fluoxetine and Wellbutrin. The patient is advised to maintain regular exercise and weight management to address impaired glucose tolerance and hypercholesterolemia, with recent lab results showing normal levels. The patient is advised to follow up with an eye doctor for her vision changes and to continue monitoring her symptoms. Patient was informed and verbally consented to the use of an ambient scribe for clinic note documentation during this visit. Discussion Notes During the visit, I discussed with the patient the importance of continuing CPAP therapy for her obstructive sleep apnea and the need for an overnight oximetry test to assess her oxygen levels during sleep. We reviewed her thyroid medication regimen for hypothyroidism, and I emphasized the importance of adherence to her treatment plan. I advised her to maintain a low-fat diet and stay well-hydrated to manage her nephrolithiasis and cholelithiasis. We also discussed her generalized anxiety disorder management with fluoxetine and Wellbutrin. I encouraged her to continue regular exercise and weight management to address her impaired glucose tolerance and hypercholesterolemia, noting her recent normal lab results. Lastly, I recommended she follow up with an eye doctor regarding her vision changes and continue monitoring her symptoms. Patient Instructions - Continue using CPAP therapy nightly for sleep apnea - Schedule and complete an overnight oximetry test - Take thyroid medication as prescribed - Follow a low-fat diet and stay well-hydrated - Continue taking fluoxetine and Wellbutrin for anxiety - Engage in regular exercise and maintain weight management - Schedule an appointment with an eye doctor for vision changes
[2024-12-11 14:50] VITALS: BP 120/66; PULSE 96; TEMP 36.2; O2SAT 99; BMI 27.5
== END 2024-12-11 15:30 | disposition home or self-care (01) ==
LOC: HO.HMCH 14:36
PROVIDERS: PCP Internal Medicine; Visit Provider Internal Medicine
DX: Z00.00 Encounter for general adult medical examination without abnormal findings (principal); G47.33 Obstructive sleep apnea (adult) (pediatric); Z87.442 Personal history of urinary calculi; K80.20 Calculus of gallbladder without cholecystitis without obstruction; E78.00 Pure hypercholesterolemia, unspecified; F41.1 Generalized anxiety disorder; R73.02 Impaired glucose tolerance (oral); E03.9 Hypothyroidism, unspecified; E66.3 Overweight

== ENCOUNTER 2025-01-21 08:11 | Outpatient (AMB) | payer OTHER, SELFPAY ==
--- NOTE | 2025-01-21 08:18 | MHC.OFFVIS ---
Vital Signs 01/21/25 08:25 Height 5 ft 4 in Weight 172 lb BMI 29.5 BP 110/68 Blood Pressure Location Lt brachial Position Sitting Pulse 77 Pulse Source Pulse Oximeter Pulse Oximetry (%) 97 Oxygen Delivery Method Room Air Intake Visit Reasons: 3m follow up Intake Note: Patient presents follow up MEI. Pulse ox/compliance in chart(88/90 days, >=4hrs-98%, Average Usage-7hr 24min, Med Pressure-10.4, Med Leaks-2.9, AHI-2.8). Allergies erythromycin base (From ERYTHROCIN) Allergy (Intermediate, Verified 01/21/25 08:28) HIVES Sulfa (Sulfonamide Antibiotics) (Sulfa (Sulfonamides)) Allergy (Intermediate, Verified 01/21/25 08:28) RASH HPI Comments Details: 49 year old female presents for a follow up of obstructive sleep apnea. 2021 HST cw AHI of 38 and O2 nadirs to 77% and <88% for 10min, with nocturnal hypoxemia. MEI compliance report 07/16/2024 - 2024 total days usage is 90/90 days and avg daily use is 7hours 20min CPAP auto press 6-20cm and press median 10.6, leaks median 10.8 AHI 2.9 Reviewed overnight pulse oximetry and her O2 levels were at minimum 90 and maximum 99. She goes to bed at 11pm and gets up at 6am, zero bathroom breaks. 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 She is no longer taking naps, and feels this is the main change with her cpap use as she has more energy. She grinds her teeth and has a mouth guard and does not like to use it. She has some leaks with the mask, however she likes her new mask better as it does not irritate the nose.She has morning headaches daily which improves after her morning coffee. She drinks 4 cups of coffee a day.RLS symptoms denies.Memory, mood, and diet has improved, she still forgets items and tasks when multitasking. She likes to garden, and does yard work. She washes her mask daily, rinses her tubing, changes filters and fills reservoir with water as needed. [facility] Medical History Obesity (BMI 30-39.9) Morbid obesity MEI on CPAP Hemorrhoids with complication Family history of colon cancer Colon cancer screening Polycystic ovarian syndrome Asthma Obsessive compulsive disorder History of renal calculi Cholelithiasis Hypothyroid Recurrent major depression Surgical History History of hemorrhoidectomy Hx of LASIK History of colonoscopy H/O abdominal surgery History of ankle surgery History of section Family History Father Cancer Renal cancer Myocardial infarct Lymphoma Mother No problems noted. Sister No problems noted. Sister No problems noted. Son No problems noted. Maternal Grandmother Colon cancer Paternal Grandfather Myocardial infarct Maternal Grandfather Myocardial infarct Other Mental health disorder Social History Housing: House Are you a primary animal caretaker supervisor to a significant other at home: No Do you presently have visiting nurse or other home services: No Alcohol intake: current Alcohol intake frequency: holidays/special occasions only Comment: once a month 1 gin and tonic or beer Patient Tobacco Use Status: Former Tobacco user Tobacco use type: Cigarette Years Smoked: Quit 2015 e-Cigarette/Vaping Use: Never Used Second Hand Smoke Exposure: Yes service: No Current occupational status: employed Cognitive needs: No Hearing needs: No Vision needs: No Female Reproductive History Menstrual Age of Menarche: 11 Physical Exam Vital Signs: Last Vital Signs Pulse 77 01/21/25 08:25 BP 110/68 01/21/25 08:25 Pulse Ox 97 01/21/25 08:25 Oxygen Delivery Method Room Air 01/21/25 08:25 BMI result Body Mass Index 29.5 Const General: cooperative, comfortable and no acute distress Nutritional Appearance: average body habitus Orientation/consciousness: patient oriented x3 HEENT Face and sinus: Yes face symmetric Teeth and gingiva: other (Mallmpti score of 3) Eyes Pupils: Equal, round and reactive pupils present Resp Effort & Inspection: normal respiratory effort and able to speak in complete sentences Neuro General: patient oriented x3 and moves all extremities Cranial nerves: Yes Facial sensation intact/muscles of mastication intact, Yes Equal, round and reactive pupils present, Yes Normal accommodation reflex present, Yes Nystagmus not present, Yes Normal facial strength present, Yes Midline tongue present, Yes Ability to bilaterally rotate head present and Yes Ability to bilaterally elevate shoulders present Cognition (Neuro): normal cognition Gait exam (Neuro): Normal gait present Motor exam (neuro): 5/5 motor strength present throughout and Normal motor muscle tone present throughout Coordination: [id number] test normal Psych Appearance: grossly normal Thought process: Normal thought process present Thought content: Normal thought content present Results Reviewed Results Reviewed: 2021 HST cw AHI of 38 and O2 nadirs to 77% and <88% for 10min, with nocturnal hypoxemia. MEI compliance report 07/16/2024 - 2024 total days usage is 90/90 days and avg daily use is 7hours 20min CPAP auto press 6-20cm and press median 10.6, leaks median 10.8 AHI 2.9 12/2024 Reviewed overnight pulse oximetry and her O2 levels were at minimum 90 and maximum 99. Assessment & Plan Assessment & Plan (1) Obstructive sleep apnea: Comment: November 2021 Code(s): G47.33 - Obstructive sleep apnea (adult) (pediatric) Category: Medical (2) Excessive daytime sleepiness: Code(s): G47.19 - Other hypersomnia Category: Medical (3) Nocturnal hypoxemia: Comment: 90 lowest / 99% highest 4 hours and 49 min recorded Code(s): G47.34 - Idiopathic sleep related nonobstructive alveolar hypoventilation Category: Medical (4) Vitamin D insufficiency: Code(s): E55.9 - Vitamin D deficiency, unspecified Category: Medical (5) Low vitamin B12 level: Code(s): R79.89 - Other specified abnormal findings of blood chemistry Category: Medical Plan MEI on cpap therapy continue use of cpap and for >4hours nightly, as pt is experiencing restful sleep. Pulse oximetry results reviewed-90% min / 99% max O2 levels for 4 hours and 49 min time recorded. Labs reviewed continue B12 1000mcg daily and Vitamin D daily, continue magnesium 400mg po as needed to improve sleep. F/U in one year or sooner. Medications: New mecobalamin (vitamin B12) 1,000 mcg PO DAILY 90 tabs 3RF low b12 3 months MDD 1000mcg R79.89 - Other specified abnormal findings of blood chemistry Changed From cholecalciferol (vitamin D3) 25 mcg PO DAILY E55.9 - Vitamin D deficiency, unspecified To cholecalciferol (vitamin D3) 25 mcg PO DAILY 90 caps 3RF insufficient vitamin D 3 months MDD 1000units E55.9 - Vitamin D deficiency, unspecified Patient Instructions: Sleep Hygiene provided: set a scheduled bedtime and wake time to help regulate the circadian rhythm and balance the release of pituitary hormones. Sleep in a dark room, temperatures below 68 degrees, and no devices n bed. Limit caffeinated products 6 hours prior to bed, and limit fluids 2-4 hours prior to bed. Gentle night yoga, diffusing essential oils, and playing soft music can be relaxing. Coding Level of Care Code Est Pt Level 4 (25509) Diagnoses Obstructive sleep apnea G47.33 Excessive daytime sleepiness G47.19 Nocturnal hypoxemia G47.34 Vitamin D insufficiency E55.9 Low vitamin B12 level R79.89
[2025-01-21 08:25] VITALS: BP 110/68; PULSE 77; O2SAT 97; BMI 29.5
--- OUTSIDE RECORDS SUMMARY | 2025-01-21 08:28 | XMS_ITS | Patient Health Record ---
Author Organization [facility] Address [address] [place] [address] Support Name Relationship Address Phone RADHA AZEVEDO [...] Status W/U Status Risk Notes Problem Hypothyroidism (37530518) Unspecified hypothyroidism (244.9) Active confirmed Major Problem Obesity (898754655) Obesity, unspecified (278.00) Active confirmed Major Problem Depressive disorder (71527773) Depressive disorder, not elsewhere classified (311) Active confirmed Major Problem Gynecological examination normal (067147391857179) Routine gynecological examination (V72.31) Active confirmed Diag Plan Of Treatment No Information Insurance Providers Payer Name Payer Address Payer Phone Subscriber Number Group Number Insured Name Patient Relationship to Insured Coverage Start Date Coverage End Date [facility] [address] [place] [address] [phone] [id number] RADHA AZEVEDO Self - patient is the insured
--- OUTSIDE RECORDS SUMMARY | 2025-01-21 08:28 | XMS_ITS | Clinical Summary ---
Author Organization [address] Address [address] [place] [address] Phone Care Team Providers Care Steel Buffer Name Role Phone Brendon Avina MD Primary Care Provider [phone] Surgical History Surgery Date Site/Laterality Comments OTHER SURGICAL HISTORY PROCEDURE: NE REPAIR PRIMARY OPEN/PRQ RUPTURED ACHILLES TENDON SECTION [...] 09/15/2025 3:40 PM EDT Appointment Radiology Department [address] [address] Health Maintenance Due Date Last Done Comments [...] is recommended in 1 year. Mammo Location: [facility], [address] [place] [address], [address], . -------- FINAL REPORT -------- Dictated By: Nighat Schaefer Dictated Date: 09/09/2024 10:11 ET Assigned Physician: Nighat Schaefer Reviewed and Electronically Signed By: Nighat Schaefer Signed Date: 09/09/2024 10:13 ET Workstation ID: [id number] Transcribed By: Self Edit Transcribed Date: 09/09/2024 [...] is recommended in 1 year. Mammo Location: [facility], [address] [place] [address], [address], . -------- FINAL REPORT -------- Dictated By: Nighat Schaefer Dictated Date: 09/09/2024 10:11 ET Assigned Physician: Nighat Schaefer Reviewed and Electronically Signed By: Nighat Schaefer Signed Date: 09/09/2024 10:13 ET Workstation ID: [id number] Transcribed By: Self Edit Transcribed Date: 09/09/2024 10:11 ET Brendon Avina MD IMG BI PROCEDURES Final Result from Last 3 Months or Most Recently Relevant to Health Maintenance Insurance [facility] Care Teams Steel Buffer Relationship Specialty Start Date End Date Brendon Avina MD [address] [place] [address] [address] [facility] [place], [place] [phone] PCP - General Internal Medicine 09/04/21
== END 2025-01-21 09:01 | disposition home or self-care (01) ==
LOC: HO.HSMS 08:12
PROVIDERS: PCP Internal Medicine; Visit Provider Physician Assistant Medical
DX: G47.33 Obstructive sleep apnea (adult) (pediatric) (principal); G47.19 Other hypersomnia; G47.34 Idiopathic sleep related nonobstructive alveolar hypoventilation; E55.9 Vitamin D deficiency, unspecified; R79.89 Other specified abnormal findings of blood chemistry
CPT/HCPCS: 99214

== ENCOUNTER 2025-02-14 09:22 | Observation (INO) | payer OTHER, SELFPAY ==
[2025-02-14] VITALS (10 sets, daily range): BP systolic 94–116; BP diastolic 53–72; PULSE 73–89; RESP 14–18; TEMP 36.4–36.7; O2SAT 91–99; BMI 28.5; BMI 28.3
--- NOTE | 2025-02-14 | ECG_ITS ---
Test Reason : DIZZINESS Blood Pressure : */* mmHG Vent. Rate : 76 BPM Atrial Rate : 76 BPM P-R Int : 174 ms QRS Dur : 92 ms QT Int : 396 ms P-R-T Axes : 24 42 17 degrees QTcB Int : 445 ms Normal sinus rhythm Cannot rule out Anterior infarct , age undetermined Abnormal ECG When compared with ECG of 24-Sep-2017 00:28, No significant change was found Referred By: Francoise Vogel Electronically Signed By: Palomo Brewer
--- NOTE | ~2025-02-14 | CT_ITS ---
CLINICAL HISTORY: Stroke Protocol CT head without contrast Comparison: None provided Findings: No intra-axial mass, midline shift, hydrocephalus, or acute hemorrhage. No significant atrophy-like change or white matter disease. There is no sinus or mastoid fluid. The orbits are within normal limits. No skull fracture. IMPRESSION: 1. No acute intracranial findings. This document has been electronically signed by: Keanu Espinoza MD on 02/14/2025 11:36:56
--- NOTE | ~2025-02-14 | CT_ITS ---
CLINICAL HISTORY: Stroke Protocol CT angiography head and neck with contrast. 3D Post-processing. Comparison: None Findings: CTA head: No intracranial large vessel occlusion. No dissection or aneurysm. The intracranial segments of the internal carotid arteries are patent bilaterally. Intradural vertebral arteries are patent. Anterior and posterior circulation are patent. No abnormal postcontrast enhancement. CTA neck: There is a normal branching pattern of the aortic arch. The right common, internal and external carotid arteries are patent with no significant stenosis. The left common, internal and external carotid arteries are patent with no significant stenosis. The vertebral arteries are patent. Small thyroid nodules are noted. Mild degenerative changes within the cervical spine. Impression: There is no intracranial large vessel occlusion detected. No significant stenosis of the neck vasculature. Incidental findings as detailed. This document has been electronically signed by: Keanu Espinoza MD on 02/14/2025 11:48:24
--- NOTE | ~2025-02-14 | MR_ITS ---
EXAMINATION: MR BRAIN WITHOUT CONTRAST CLINICAL INFORMATION: Vertigo. COMPARISON: Correlated to CT dated February 14, 2025. TECHNIQUE: MRI of the brain was obtained using routine sequences without contrast. FINDINGS: No restricted diffusion. No acute intracranial hemorrhage, mass effect, midline shift, hydrocephalus or herniation. Walters-white matter differentiation is normal. There are a few, nonspecific, less than 5 mm, nonrestricted diffusion subcortical deep white matter hyperintense T2 FLAIR signal in the left frontal acuna radiata white matter/centrum semiovale. Flow-void signal within the main cerebral vessels is normal. CSF prominence of the Meckel's caves, left pronounced than the right side. Sellar/suprasellar region demonstrated no gross masses or signal abnormality. Craniocervical junction demonstrates low position of the cerebellar tonsils. Midline structures are intact. MR/MR head/brain wo con IMPRESSION: No acute stroke/nonhemorrhagic ischemia. Nonspecific T2 FLAIR signal left frontal subcortical white matter. Mild Meckel's caves meningocele Electronically signed by: Abhijit Scott MD 02/16/2025 11:41 AM EDT
[2025-02-14 09:43] LABS: MANUAL DIFF FLAG NO
[2025-02-14 09:45] LABS: Hematocrit 40.2 % (37.0-47.0); Hemoglobin 14.3 g/dl (12.0-16.0); Imm Gran Abs Auto 0.03 X10*3/uL (0.00-0.03); Imm Gran Pct Auto 0.4 % (0.0-0.4); Lymphocytes Absolute Auto 1.7 X10*3/uL (1.2-4.9); Mean Corpuscular HGB Conc 35.6 g/dl (31.0-35.0); Mean Corpuscular Hemoglobin 32.4 pg (27.0-33.0); Mean Corpuscular Volume 91.0 fL (80.0-98.0); NRBC Abs Auto 0.000 X10*3/uL (0.0-0.012); NRBC Pct Auto 0.0 /100WBC (0.0-0.2); Platelet Count 271 X10*3/uL (160-400); Red Blood Count 4.42 X10*6/uL (4.20-5.50); White Blood Count 8.0 X10*3/uL (4.8-10.8)
--- OUTSIDE RECORDS SUMMARY | 2025-02-14 09:53 | XMS_ITS | Patient Health Record ---
Author Organization [facility] Address [address] [place] [address] Support Name Relationship Address Phone RADHA AZEVEDO [...] Status W/U Status Risk Notes Problem Hypothyroidism (34305921) Unspecified hypothyroidism (244.9) Active confirmed Major Problem Obesity (619177846) Obesity, unspecified (278.00) Active confirmed Major Problem Depressive disorder (05702258) Depressive disorder, not elsewhere classified (311) Active confirmed Major Problem Gynecological examination normal (530042130935563) Routine gynecological examination (V72.31) Active confirmed Diag Plan Of Treatment No Information Insurance Providers Payer Name Payer Address Payer Phone Subscriber Number Group Number Insured Name Patient Relationship to Insured Coverage Start Date Coverage End Date [facility] [address] [place] [address] [phone] [id number] RADHA AZEVEDO Self - patient is the insured
--- OUTSIDE RECORDS SUMMARY | 2025-02-14 09:53 | XMS_ITS | Clinical Summary ---
Author Organization [address] Address [address] [place] [address] Phone Care Team Providers Care Sand Molder Name Role Phone Brendon Avina MD Primary Care Provider [phone] Surgical History Surgery Date Site/Laterality Comments OTHER SURGICAL HISTORY PROCEDURE: [place] REPAIR PRIMARY OPEN/PRQ RUPTURED ACHILLES TENDON SECTION [...] 09/15/2025 3:40 PM EDT Appointment Radiology Department [address] [address] Health Maintenance Due Date Last Done Comments Hepatitis B Vaccines (1 of 3 - 19+ 3-dose series) 1992 Cervical Cancer Screening: HPV 1994 Cholesterol Screening (Lipid Panel) 04/28/2022 Colorectal Cancer Screening: Colonoscopy 04/28/2022 HIV Screening 04/28/2022 Hepatitis C Screening 04/28/2022 Social Influencers of Health Screening 04/28/2022 Pneumococcal Vaccine: 50+ Years (1 of 1 - PCV) 10/19/2023 Zoster Vaccines (1 of 2) 10/19/2023 Depression Screening 05/20/2024 COVID-19 Vaccine ( - 2023- season) 2025 Influenza Vaccine (#1) 2025 03/05/2018, 2016 Breast [...] is recommended in 1 year. Mammo Location: [facility], [address] [place] [address], [address], . -------- FINAL REPORT -------- Dictated By: Nighat Schaefer Dictated Date: 09/09/2024 10:11 ET Assigned Physician: Nighat Schaefer Reviewed and Electronically Signed By: Nighat Schaefer Signed Date: 09/09/2024 10:13 ET Workstation ID: [id number] Transcribed By: Self Edit Transcribed Date: 09/09/2024 [...] is recommended in 1 year. Mammo Location: [facility], [address] [place] [address], [address], . -------- FINAL REPORT -------- Dictated By: Nighat Schaefer Dictated Date: 09/09/2024 10:11 ET Assigned Physician: Nighat Schaefer Reviewed and Electronically Signed By: Nighat Schaefer Signed Date: 09/09/2024 10:13 ET Workstation ID: [id number] Transcribed By: Self Edit Transcribed Date: 09/09/2024 10:11 ET Brendon Avina MD IMG BI PROCEDURES Final Result from Last 3 Months or Most Recently Relevant to Health Maintenance Insurance [facility] Care Teams Sand Molder Relationship Specialty Start Date End Date Brendon Avina MD [address] [place] [address] [address] [facility] [place], [place] [phone] PCP - General Internal Medicine 09/04/21
[2025-02-14 09:57] LABS: Alanine Aminotransferase 17 U/L (0-31); Albumin Level 4.7 g/dL (3.5-5.0); Alkaline Phosphatase 44 U/L (39-117); Anion Gap 15 (12-20); Aspartate Amino Transferase 22 U/L (5-31); Blood Urea Nitrogen 14 mg/dL (9-16); Calcium 9.7 mg/dL (8.4-10.2); Carbon Dioxide 21 mmol/L (22-29); Chloride 108 mmol/L (96-108); Creatinine Clr Calc Pharmacy 85.6; Estimated Glomerular Filt Rate > 60; Magnesium 1.8 mg/dL (1.6-2.6); Potassium 3.6 mmol/L (3.3-5.1); Sodium 140 mmol/L (135-145); Total Protein 7.0 g/dL (6.5-8.0)
[2025-02-14 10:05] LABS: Troponin-I High Sensitivity < 2.7 ng/L (<3.5-17.0)
--- NOTE | 2025-02-14 10:35 | PC.NURSE ---
Pt BIBA for reports of ongoing N/V since having eye dr bal yest where she states her eyes were over-dilated. A/O x 3, pt reports dizziness. 20g IV placed to JULIETA, labs collected and sent. IVF and medications per MAR.
[2025-02-14 10:44] LABS: Lipase 36 U/L (8-78)
--- NOTE | 2025-02-14 10:49 | ED_ITS ---
HPI - General Adult General Chief complaint: Nausea/Vomiting/Diarrhea Stated complaint: n/v Time Seen by Provider: 02/14/25 09:32 Source: patient and RN notes reviewed Mode of arrival: ambulatory Limitations: no limitations History of Present Illness ED Provider: Francoise Vogel PA-C HPI narrative: This is a 49-year-old female, with a past medical history of hypercholesterolemia, thyroid disease, who presents emergency department with concerns of ongoing dizziness, nausea and vomiting since yesterday. Patient reports that she went to her eye doctor yesterday and had her eyes dilated. She was told at the eye doctor that they ?over dilated her eyes?. She states that 2 hours later she developed dizziness, nausea and vomiting. She states that she has been keeping her eyes closed which has been helping with her symptoms however states that she has had persistent dizziness since. She states that the dizziness worsens with positional changes. She states several episodes of vomiting. Denies history of vertigo or similar symptoms in the past. No recent head trauma, no falls. She has been in her usual state of health recently. No headache, fevers, chills, chest pain, shortness of breath, abdominal pain, diarrhea or constipation. No urinary symptoms. No other complaints or concerns at this time. MD complaint: Dizziness Onset (ago): day(s) Radiation: non-radiation Quality: aching Pain Consistency: constant Relieving factors: none Exacerbating factors: movement Associated symptoms: denies other symptoms Treatments prior to arrival: none Related Data Home Medications ?Medication ?Instructions ?Recorded ?Confirmed bupropion HCl 200 mg tablet,12 hr 200 mg PO DAILY 01/1902/14/25 sustained-release (Wellbutrin SR) levonorgestrel (Mirena) 1 device intrauterine DIR ECTED 02/10/21 02/14/25 psyllium husk 0.52 gram capsule 4.16 g PO BID 02/10/21 02/14/25 (Daily Fiber) estradiol 1 mg tablet 1.5 mg PO DAILY 12/11/24 fluoxetine 20 mg capsule 20 mg PO DAILY 02/14/2501/19 levothyroxine 50 mcg tablet 50 mcg PO DAILY@0600 02/1402/14/25 multivitamin 1 tab PO DAILY 02/14/2501/19 semaglutide (weight loss) 1 mg/0.5 1 mg subcut VILLANUEVA 01/1902/14/25 mL subcutaneous pen injector (Lilia) Previous Rx's ?Medication ?Instructions ?Recorded AUTOPAP mode 6-20 cm H2O #1 ea 03/05/22 humidified AIR ibuprofen 600 mg tablet 600 mg PO Q6H PRN pain #30 t abs 08/07/24 spironolactone 100 mg tablet 100 mg PO BID 90 days #18 0 tabs 09/13/24 sennosides 8.6 mg-docusate sodium 2 tab-cap (2 x 8.6-5 0 mg) PO 11/02/24 50 mg tablet (Senna Plus) BEDTIME 30 days #60 tabs cholecalciferol (vitamin D3) 25 25 mcg PO DAILY insuff icient 01/21/25 mcg (1,000 unit) capsule vitamin D 3 months #90 caps mecobalamin (vitamin B12) 1,000 1,000 mcg PO DAILY low b12 3 01/21/25 mcg chewable tablet months #90 tabs Allergies Allergy/AdvReac Type Severity Reaction Status Date / Time erythromycin base (From Allergy Intermediate HIVES Verified 02/14/25 09:28 ERYTHROCIN) Sulfa (Sulfonamide Allergy Intermediate RASH Verified 02/14/25 09:28 Antibiotics) (Sulfa (Sulfonamides)) Review of Systems 2 Review of Systems: Constitutional : No Fever, No Chills ENT/Mouth : No sore throat, No Rhinorrhea Eyes: No Eye Pain, No Swelling, No Redness Cardiovascular : No Chest Pain, No SOB Respiratory : No Cough, No Sputum Gastrointestinal : No Nausea, No Vomiting, No Diarrhea, No abdominal Pain Genitourinary : No Dysuria, No Hematuria Musculoskeletal : No joint pain, No Myalgias, No Joint Swelling Skin : No Skin Lesions Neuro : No Weakness, No Numbness, No Headache, +dizziness All other systems reviewed and are negative Yes all other systems are reviewed and are negative Constitutional: Constitutional: Reports as per [facility] Past Medical History Medical History (Updated 02/15/25 @ 09:24 by Monse Hendrix MD) Obesity (BMI 30-39.9) Morbid obesity MEI on CPAP Hemorrhoids with complication Family history of colon cancer Colon cancer screening Polycystic ovarian syndrome Asthma Obsessive compulsive disorder History of renal calculi Cholelithiasis Hypothyroid Recurrent major depression Surgical History History of hemorrhoidectomy Hx of LASIK History of colonoscopy H/O abdominal surgery History of ankle surgery History of section Family History Family History Father Cancer Renal cancer Myocardial infarct Lymphoma Mother No problems noted. Sister No problems noted. Sister No problems noted. Son No problems noted. Maternal Grandmother Colon cancer Paternal Grandfather Myocardial infarct Maternal Grandfather Myocardial infarct Other Mental health disorder Social History Social History Household Members: Family Housing: House Are you a primary care program resident to a significant other at home: No Do you presently have visiting nurse or other home services: No Alcohol intake: current Alcohol intake frequency: holidays/special occasions only Comment: once a month 1 gin and tonic or beer Patient Tobacco Use Status: Former Tobacco user Tobacco use type: Cigarette Years Smoked: Quit 2015 e-Cigarette/Vaping Use: Never Used Second Hand Smoke Exposure: Yes service: No Current occupational status: employed Cognitive needs: No Hearing needs: No Vision needs: No Physical Exam ED Vital Signs: Vital Signs - 24 hr 02/14/25 12:00 Temperature 97.6 F Pulse Rate 73 Respiratory Rate 16 Blood Pressure 99/62 Pulse Oximetry 98 Oxygen Delivery Method Room Air BMI result Body Mass Index 28.5 Const General: cooperative, comfortable and no acute distress Orientation/consciousness: patient oriented x3 Limitations: no limitations [facility] Head: Yes normal to inspection, Yes normocephalic and Yes atraumatic Ears: hearing grossly normal bilaterally General nose exam: Normal external nose present Face and sinus: Yes normal facial exam Mouth: Normal oral and palatal mucosa present, oropharynx normal and moist mucous membranes Throat: Yes posterior oropharynx normal Eyes General: appearance normal, both eyes and all related structures Eyelids: Yes eyelids normal Conjunctivae: conjunctivae normal Sclerae: sclerae normal Pupils: Equal, round and reactive pupils present EOM: EOMs intact bilaterally Neck Neck: Yes normal visual inspection, Yes full ROM and Yes no lymphadenopathy Lymphatic: no lymphadenopathy noted Chest Chest palpation & inspection: normal inspection of the chest Resp Effort & Inspection: normal respiratory effort and able to speak in complete sentences Auscultation: clear to auscultation bilaterally, no crackles, no rales, no rhonchi and no wheezes Cardio Rate: regular rate Rhythm: regular rhythm Heart sounds: S1 normal heart sound present and S2 normal heart sound present GI Inspection: Yes normal to inspection Skin General skin exam: no rashes or lesions noted Trauma: no lacerations or abrasions Wounds: no wounds Neuro General: patient oriented x3, moves all extremities and Unable to assess gait Cranial nerves: Yes CN's II-XII intact bilaterally and Yes Equal, round and reactive pupils present Cognition (Neuro): normal cognition Gait exam (Neuro): Unable to assess gait Motor exam (neuro): 5/5 motor strength present throughout and Pronator motor function not present Coordination: [id number] test normal Romberg Test: Negative Pupils: Normal pupillary reactivity/response: bilateral Extrem General: Yes normal to inspection Right upper extremity: normal to inspection Left upper extremity: normal to inspection Right lower extremity: normal to inspection Left lower extremity: normal to inspection NIH Stroke Scale Internal: Initial- Upon Arrival Level of Consciousness: Alert Level of Consciousness Questions: Answers both questions correctly Level of Consciousness Commands: Performs both tasks correctly Best Gaze: Normal Visual: No visual loss Facial Palsy: Normal Motor Arm (Right): No drift Motor Arm (Left): No drift Motor Leg (Right): No drift Motor Leg (Left): No drift Limb Ataxia: Absent Sensory: Normal Best Language: No aphasia Dysarthia: Normal Extinction and Inattention: No abnormality Score: 0 Medications Administered Generic Name Dose Route Start Last Admin Trade Name Riveraq PRN Reason Stop Dose Admin Enoxaparin Sodium 40 mg 02/14/25 14:00 02/14/25 15:18 Enoxaparin Sodium 40 Mg/0.4 Ml Syringe SUBCUT 40 mg Q24H QUYEN Administration Estradiol 1.5 mg 02/15/25 09:00 02/15/25 08:49 Estradiol 0.5 Mg Tablet PO 1.5 mg DAILY QUYEN Administration Fluoxetine HCl 20 mg 02/15/25 09:00 02/15/25 08:50 Fluoxetine Hcl 20 Mg Capsule PO 20 mg DAILY QUYEN Administration Levothyroxine Sodium 50 mcg 02/15/25 07:45 02/15/25 08:46 Levothyroxine Sodium 50 Mcg Tablet PO 50 mcg DAILY@0600 QUYEN Administration Multivitamins/Vitamin C 1 tab 02/15/25 09:00 02/15/25 08:50 Multivitamin Tablet PO 1 tab DAILY QUYEN Administration Sodium Chloride 3 ml 02/14/25 16:00 02/15/25 07:28 0.9 % Sodium Chloride Flush 3 Ml Syringe IVFLUSH 3 ml QSHIFT QUYEN Administration Spironolactone 100 mg 02/15/25 09:00 02/15/25 08:50 Spironolactone 25 Mg Tablet PO 100 mg BID QUYEN Administration Protocol Vitamin D 25 mcg 02/15/25 09:00 02/15/25 08:50 Cholecalciferol (Vitamin D3) 25 Mcg Tablet PO 25 mcg DAILY QUYEN Administration Discontinued Medications Generic Name Dose Route Start Last Admin Trade Name Riveraq PRN Reason Stop Dose Admin Diphenhydramine HCl 12.5 mg 02/14/25 12:05 02/14/25 12:14 Diphenhydramine Hcl 50 Mg/Ml Vial IVPUSH 02/14/25 12:06 12.5 mg ONCE ONE Administration Sodium Chloride 1,000 mls @ 999 mls/hr 02/14/25 10:03 02/14/25 11:11 Ns IV 02/14/25 11:03 Infused .Q1H1M ONE Infusion Sodium Chloride 1,000 mls @ 999 mls/hr 02/14/25 12:00 02/14/25 13:18 Ns IV 02/14/25 13:00 Infused .Q1H1M QUYEN Infusion Iohexol 100 ml 02/14/25 11:34 02/14/25 11:35 Iohexol 350 Mg/Ml 100 Ml Infus..Btl IV 02/14/25 11:35 70 ml ONCE ONE Administration Meclizine HCl 25 mg 02/14/25 10:03 02/14/25 11:11 Meclizine Hcl 25 Mg Tablet PO 02/14/25 10:04 25 mg ONCE ONE Administration Methylprednisolone Sodium Succinate 60 mg 02/14/25 15:00 02/15/25 02:46 Methylprednisolone Sod Succ 125 Mg/2 Ml Vial IVPUSH 02/15/25 03:01 60 mg Q12H QUYEN Administration Metoclopramide HCl 10 mg 02/14/25 12:05 02/14/25 12:14 Metoclopramide Hcl 10 Mg/2 Ml Vial IVPUSH 02/14/25 12:06 10 mg ONCE ONE Administration Ondansetron HCl 4 mg 02/14/25 10:03 02/14/25 10:13 Ondansetron Hcl 4 Mg/2 Ml Vial IVPUSH 02/14/25 10:04 4 mg ONCE ONE Administration Medical Decision Making Medical Decision Making [facility] Narrative: This is a 49-year-old female, with a past medical history of hypercholesterolemia, thyroid disease, who presents emergency department with concerns of ongoing dizziness, nausea and vomiting since yesterday. Patient had her eyes dilated. On arrival, she is speaking full sentences, patient with eye mask over her eyes as she reports every time she opens her eyes she gets profoundly dizzy. She describes his dizziness as the room spinning around her. Will obtain labs, EKG, orthostatics. Differential diagnoses include electrolyte derangement, orthostatic hypotension, adverse medication reaction, ACS-unlikely. 11:05 AM 02/14/2025 (Francoise Vogel PA-C): Upon further questioning, patient is feeling much better after receiving IV fluids and Zofran however I was able to complete a full neurologic exam as previously she went tolerate this without removing her eye shades. I attempted to get her out of bed and she was unable to do so due to the dizziness returning. Her symptoms started at 4:00 p.m. yesterday. Labs returned, she has no leukocytosis, stable H&H, chemistry revealing no significant electrolyte derangement. Troponin less than 2.7. 12:09 PM 02/14/2025 (Francoise Vogel PA-C): Patient re-evaluated, still reporting persistent nausea and dizziness. CT CTA were negative. Incidental findings of thyroid nodules and degenerative disc disease seen, discussed with patient. Will order Benadryl and Reglan. 1:29 PM 02/14/2025 (Francoise Vogel PA-C): Patient's nausea has improved however she does report ongoing dizziness, unable to get out of bed secondary to the dizziness. Given persistent dizziness - patient needs to be admitted for MRI and further evaluation. Differential Diagnosis Differential Diagnoses: The differential diagnosis associated with the presentation includes See above Admission/Observation Consideration of admission/observation: Escalation of care including admission/observation considered Lab Data [facility] Lab Attestation statement: I reviewed the patient's lab results. See [facility] 02/14/25 09:39 02/14/25 09:39 Labs: Lab Results 02/14/25 02/14/25 02/14/25 Range/Units 09:39 11:31 11:38 WBC 8.0 (4.8-10.8) X10*3/uL RBC 4.42 (4.20-5.50) X10*6/uL Hgb 14.3 (12.0-16.0) g/dl Hct 40.2 (37.0-47.0) % MCV 91.0 (80.0-98.0) fL MCH 32.4 (27.0-33.0) pg MCHC 35.6 H (31.0-35.0) g/dl RDW 12.4 (11.0-16.0) % Plt Count 271 (160-400) X10*3/uL MPV 9.9 (9.4-12.3) fL Immature Gran % (Auto) 0.4 (0.0-0.4) % Neut % (Auto) 73.6 H (45-73) % Lymph % (Auto) 21.8 (20-40) % [place] % (Auto) 3.0 (2-11) % Eos % (Auto) 0.8 (0-4) % Baso % (Auto) 0.4 (0-2) % Lymph # (Auto) 1.7 (1.2-4.9) X10*3/uL [place] # (Auto) 0.2 (0.1-1.2) X10*3/uL Eos # (Auto) 0.1 (0.0-0.4) X10*3/uL Baso # (Auto) 0.0 (0.0-0.2) X10*3/uL Abs Immat Gran (auto) 0.03 (0.00-0.03) X10*3/uL Absolute Neuts (auto) 5.9 (2.0-8.3) x10*3/uL Absolute Nucleated RBC 0.000 (0.0-0.012) X10*3/uL Nucleated RBC % (auto) 0.0 (0.0-0.2) /100WBC Hold Purple Top SEE NOTE PT (10.9-12.4) SEC INR (0.9-1.1) APTT (26.7-34.1) SEC Sodium 140 (135-145) mmol/L Potassium 3.6 D (3.3-5.1) mmol/L Chloride 108 (96-108) mmol/L Carbon Dioxide 21 L (22-29) mmol/L Anion Gap 15 (12-20) BUN 14 (9-16) mg/dL Creatinine 0.83 (0.5-1.4) mg/dL Estim Creat Clear Calc 85.6 Estimated GFR > 60 POC Glucose 76 (60-115) mg/dL Random Glucose 129 H (60-115) mg/dL Calcium 9.7 (8.4-10.2) mg/dL Magnesium 1.8 (1.6-2.6) mg/dL Total Bilirubin 0.5 (0.0-1.0) mg/dL Direct Bilirubin 0.2 (0.0-0.5) mg/dL AST 22 (5-31) U/L ALT 17 (0-31) U/L Alkaline Phosphatase 44 (39-117) U/L Troponin I High Sens < 2.7 (<3.5-17.0) ng/L Total Protein 7.0 (6.5-8.0) g/dL Albumin 4.7 (3.5-5.0) g/dL Triglycerides (<150) mg/dL Cholesterol (<200) mg/dL LDL Cholesterol, Calc (<100) mg/dL HDL Cholesterol (>40) mg/dL Lipase 36 (8-78) U/L 02/14/25 Range/Units 11:40 WBC (4.8-10.8) X10*3/uL RBC (4.20-5.50) X10*6/uL Hgb (12.0-16.0) g/dl Hct (37.0-47.0) % MCV (80.0-98.0) fL MCH (27.0-33.0) pg MCHC (31.0-35.0) g/dl RDW (11.0-16.0) % Plt Count (160-400) X10*3/uL MPV (9.4-12.3) fL Immature Gran % (Auto) (0.0-0.4) % Neut % (Auto) (45-73) % Lymph % (Auto) (20-40) % [place] % (Auto) (2-11) % Eos % (Auto) (0-4) % Baso % (Auto) (0-2) % Lymph # (Auto) (1.2-4.9) X10*3/uL [place] # (Auto) (0.1-1.2) X10*3/uL Eos # (Auto) (0.0-0.4) X10*3/uL Baso # (Auto) (0.0-0.2) X10*3/uL Abs Immat Gran (auto) (0.00-0.03) X10*3/uL Absolute Neuts (auto) (2.0-8.3) x10*3/uL Absolute Nucleated RBC (0.0-0.012) X10*3/uL Nucleated RBC % (auto) (0.0-0.2) /100WBC Hold Purple Top PT 12.2 (10.9-12.4) SEC INR 1.1 (0.9-1.1) APTT 28.8 (26.7-34.1) SEC Sodium (135-145) mmol/L Potassium (3.3-5.1) mmol/L Chloride (96-108) mmol/L Carbon Dioxide (22-29) mmol/L Anion Gap (12-20) BUN (9-16) mg/dL Creatinine (0.5-1.4) mg/dL Estim Creat Clear Calc Estimated GFR POC Glucose (60-115) mg/dL Random Glucose (60-115) mg/dL Calcium (8.4-10.2) mg/dL Magnesium (1.6-2.6) mg/dL Total Bilirubin (0.0-1.0) mg/dL Direct Bilirubin (0.0-0.5) mg/dL AST (5-31) U/L ALT (0-31) U/L Alkaline Phosphatase (39-117) U/L Troponin I High Sens (<3.5-17.0) ng/L Total Protein (6.5-8.0) g/dL Albumin (3.5-5.0) g/dL Triglycerides 64 (<150) mg/dL Cholesterol 136 (<200) mg/dL LDL Cholesterol, Calc 81 (<100) mg/dL HDL Cholesterol 43 (>40) mg/dL Lipase (8-78) U/L Independent Interpretation I performed an independent interpretation of an: EKG Interpretation: EKG normal sinus rhythm at a ventricular rate of 71 beats per minute, MI interval 188, QT QTC 414/449, no STEMI. Radiology Impression Discussion of test interpretation with radiology: I have reviewed the radiologist's reading. Radiologist Impression: Findings: CTA head: No intracranial large vessel occlusion. No dissection or aneurysm. The intracranial segments of the internal carotid arteries are patent bilaterally. Intradural vertebral arteries are patent. Anterior and posterior circulation are patent. No abnormal postcontrast enhancement. CTA neck: There is a normal branching pattern of the aortic arch. The right common, internal and external carotid arteries are patent with no significant stenosis. The left common, internal and external carotid arteries are patent with no significant stenosis. The vertebral arteries are patent. Small thyroid nodules are noted. Mild degenerative changes within the cervical spine. Impression: There is no intracranial large vessel occlusion detected. No significant stenosis of the neck vasculature. Incidental findings as detailed. This document has been electronically signed by: Keanu Espinoza MD on 02/14/2025 11:48:24 Dictated By: Keanu Espinoza MD Findings: No intra-axial mass, midline shift, hydrocephalus, or acute hemorrhage. No significant atrophy-like change or white matter disease. There is no sinus or mastoid fluid. The orbits are within normal limits. No skull fracture. IMPRESSION: 1. No acute intracranial findings. This document has been electronically signed by: Keanu Espinoza MD on 02/14/2025 11:36:56 Dictated By: Keanu Espinoza MD Critical Care Time Critical Care Time Critical Care Time: Yes Total Critical Care Time: 42 Attestation: I have personally provided critical care time exclusive of time spent on separately billable procedures. Time includes review of lab data, radiology results, discussion with consultants, and monitoring for potential decompensation. Intervention performed as documented. Discharge Plan Discharge Clinical Impression: Dizziness Patient Disposition: Admitted As Inpatient Interventions: Admission Worksheet (ED) Last Done: 02/14/25 15:48 Discharge Date/Time: 02/14/25 20:17
--- NOTE | 2025-02-14 11:04 | ECG_ITS ---
Test Reason : STROKE Blood Pressure : */* mmHG Vent. Rate : 71 BPM Atrial Rate : 71 BPM P-R Int : 188 ms QRS Dur : 90 ms QT Int : 414 ms P-R-T Axes : 41 45 29 degrees QTcB Int : 449 ms Normal sinus rhythm Cannot rule out Anterior infarct (cited on or before 14-Feb-2025) Abnormal ECG When compared with ECG of 14-Feb-2025 09:45, No significant change was found Referred By: Francoise Vogel Electronically Signed By: Palomo Brewer
[2025-02-14] MEDS: iohexoL 350 MG/ML 100 ML INFUS..BTL IV (11:35)
--- NOTE | 2025-02-14 11:36 | PC.NURSE ---
Stroke alert called on pt and brought to CT by this RN. Scans completed and pt back in room, obtaining additional labs.
[2025-02-14 11:38] LABS: Glucose, Whole Blood 76 mg/dL (60-115)
[2025-02-14 11:55] LABS: INTERNATIONAL NORM RATIO 1.1 (0.9-1.1); Prothrombin Time 12.2 SEC (10.9-12.4)
[2025-02-14 11:58] LABS: Partial Thromboplastin Time 28.8 SEC (26.7-34.1)
[2025-02-14 11:59] LABS: Stroke Lab Use COMPLETE
[2025-02-14 12:06] LABS: Cholesterol 136 mg/dL (<200); HDL Cholesterol 43 mg/dL (>40); Triglycerides 64 mg/dL (<150)
--- NOTE | 2025-02-14 14:52 | P.HPHOSP_ITS ---
History of Present Illness Date of Service: 02/14/25 Chief Complaint: Positional dizziness 49-year-old female, with a past medical history of hypercholesterolemia, thyroid disease, who presents emergency department with concerns of ongoing dizziness, nausea and vomiting since yesterday. Patient reports that she went to her eye doctor yesterday and had her eyes dilated. She was told at the eye doctor that they ?over dilated her eyes?. She states that 2 hours later she developed dizziness, nausea and vomiting. She states that she has been keeping her eyes closed which has been helping with her symptoms however states that she has had persistent dizziness since. She states several episodes of vomiting. Denies history of vertigo or similar symptoms in the past. No recent head trauma, no falls. She has been in her usual state of health recently. No headache, fevers, chills, chest pain, shortness of breath, abdominal pain, diarrhea or constipation. No urinary symptoms. When further queried her symptoms are not present at all times; symptoms only occur with head turning/position changes. Workup including CTA head and CTA head and neck all negative Review of Systems 2 Review of Systems: Denies chest pain Denies shortness of breath Denies nausea vomiting diarrhea Denies fever chills Admits to dizziness with head movement [facility] Medical History (Updated 02/14/25 @ 15:02 by Mg Wayne DO) Obesity (BMI 30-39.9) Morbid obesity MEI on CPAP Hemorrhoids with complication Family history of colon cancer Colon cancer screening Polycystic ovarian syndrome Asthma Obsessive compulsive disorder History of renal calculi Cholelithiasis Hypothyroid Recurrent major depression Family History Father Cancer Renal cancer Myocardial infarct Lymphoma Mother No problems noted. Sister No problems noted. Sister No problems noted. Son No problems noted. Maternal Grandmother Colon cancer Paternal Grandfather Myocardial infarct Maternal Grandfather Myocardial infarct Other Mental health disorder Surgical History History of hemorrhoidectomy Hx of LASIK History of colonoscopy H/O abdominal surgery History of ankle surgery History of section Social History Housing: House Are you a primary manager progressive care to a significant other at home: No Do you presently have visiting nurse or other home services: No Alcohol intake: current Alcohol intake frequency: holidays/special occasions only Comment: once a month 1 gin and tonic or beer Patient Tobacco Use Status: Former Tobacco user Tobacco use type: Cigarette Years Smoked: Quit 2016 Smoked in Last 30 Days: No e-Cigarette/Vaping Use: Never Used Second Hand Smoke Exposure: Yes Use of substances other than those prescribed or required for medical reasons: No Advance Directives: No Advance Directives Information Provided: Yes Do you have a plan to hurt others: No Plan Patient : No service: No Current occupational status: employed Cognitive needs: No Hearing needs: No Vision needs: No Meds Allergies Allergy/AdvReac Type Severity Reaction Status Date / Time erythromycin base (From Allergy Intermediate HIVES Verified 02/14/25 09:28 ERYTHROCIN) Sulfa (Sulfonamide Allergy Intermediate RASH Verified 02/14/25 09:28 Antibiotics) (Sulfa (Sulfonamides)) Active Medications: Current Medications Acetaminophen (Acetaminophen 325 Mg Tablet) 650 mg PO Q6H PRN PRN Reason: Pain, Mild 1-3,fever,headache Calcium Carbonate (Calcium Carbonate 750 Mg Tab.Chew) 750 mg PO Q4H PRN PRN Reason: Heartburn Enoxaparin Sodium (Enoxaparin Sodium 40 Mg/0.4 Ml Syringe) 40 mg SUBCUT Q24H QUYEN Magnesium Hydroxide (Milk Of Magnesia 30 Ml Oral.Susp) 30 ml PO DAILY PRN PRN Reason: Constipation Melatonin (Melatonin 3 Mg Tablet) 6 mg PO BEDTIME PRN PRN Reason: Insomnia Methylprednisolone Sodium Succinate (Methylprednisolone Sod Succ 125 Mg/2 Ml Vial) 60 mg IVPUSH Q12H QUYEN Stop: 02/15/25 03:01 Sodium Chloride (0.9 % Sodium Chloride Flush 3 Ml Syringe) 3 ml IVFLUSH QSHIFT [facility] Home Medications ?Medication ?Instructions ?Recorded ?Confirmed ?Last Taken ?Type bupropion HCl 200 mg tablet,12 hr 200 mg PO DAILY 01/1902/14/25 02/13/25 History sustained-release (Wellbutrin SR) levonorgestrel (Mirena) 1 device intrauterine DIR ECTED 02/10/21 02/14/25 02/13/25 History psyllium husk 0.52 gram capsule 4.16 g PO BID 02/10/21 02/14/25 02/13/25 History (Daily Fiber) estradiol 1 mg tablet 1.5 mg PO DAILY 12/11/2402/13/25 History fluoxetine 20 mg capsule 20 mg PO DAILY 02/14/2501/1902/13/25 History levothyroxine 50 mcg tablet 50 mcg PO DAILY@0600 02/1402/14/25 02/13/25 History multivitamin 1 tab PO DAILY 02/14/2501/1902/13/25 History semaglutide (weight loss) 1 mg/0.5 1 mg subcut VILLANUEVA 01/1902/14/25 02/13/25 History mL subcutaneous pen injector (Lilia) Physical Exam 2 Vital Signs and Narrative: Vital Signs: Last Vital Signs Temp 97.9 F 02/14/25 14:23 Pulse 76 02/14/25 14:23 Resp 15 02/14/25 14:23 BP 100/54 L 02/14/25 14:23 Pulse Ox 96 02/14/25 14:23 O2 Del Method Room Air 02/14/25 14:23 BMI result Body Mass Index 28.5 Const: Other: Awake alert no acute distress lying quietly in bed Eyes: Other: Pupils equally round and reactive to light bilaterally. Extraocular movements are intact bilaterally. There is no nystagmus Resp: Other: Clear to auscultation bilaterally. No rales rhonchi or wheezes Cardio: Other: No S4; positive S1-S2; no S3 murmurs rubs or gallops GI: Other: Soft nontender nondistended normoactive bowel sounds Neuro: Other: Cranial nerves 2-12 grossly intact as tested. Sensation intact all extremities moving all extremities with equal power however gait not tested Extrem: Other: No edema bilaterally Results Labs 02/14/25 09:39 02/14/25 09:39 Labs: Laboratory Results - last 24 hr 02/14/25 02/14/25 02/14/25 09:39 11:31 11:38 MCV 91.0 MCH 32.4 MCHC 35.6 H RDW 12.4 Plt Count 271 MPV 9.9 Immature Gran % (Auto) 0.4 Neut % (Auto) 73.6 H Lymph % (Auto) 21.8 [place] % (Auto) 3.0 Eos % (Auto) 0.8 Baso % (Auto) 0.4 Lymph # (Auto) 1.7 [place] # (Auto) 0.2 Eos # (Auto) 0.1 Baso # (Auto) 0.0 Abs Immat Gran (auto) 0.03 Absolute Neuts (auto) 5.9 Absolute Nucleated RBC 0.000 Nucleated RBC % (auto) 0.0 Hold Purple Top SEE NOTE PT INR APTT Anion Gap 15 Estim Creat Clear Calc 85.6 Estimated GFR > 60 POC Glucose 76 Random Glucose 129 H Calcium 9.7 Magnesium 1.8 Total Bilirubin 0.5 Direct Bilirubin 0.2 AST 22 ALT 17 Alkaline Phosphatase 44 Troponin I High Sens < 2.7 Total Protein 7.0 Albumin 4.7 Triglycerides Cholesterol LDL Cholesterol, Calc HDL Cholesterol Lipase 36 02/14/25 11:40 MCV MCH MCHC RDW Plt Count MPV Immature Gran % (Auto) Neut % (Auto) Lymph % (Auto) [place] % (Auto) Eos % (Auto) Baso % (Auto) Lymph # (Auto) [place] # (Auto) Eos # (Auto) Baso # (Auto) Abs Immat Gran (auto) Absolute Neuts (auto) Absolute Nucleated RBC Nucleated RBC % (auto) Hold Purple Top PT 12.2 INR 1.1 APTT 28.8 Anion Gap Estim Creat Clear Calc Estimated GFR POC Glucose Random Glucose Calcium Magnesium Total Bilirubin Direct Bilirubin AST ALT Alkaline Phosphatase Troponin I High Sens Total Protein Albumin Triglycerides 64 Cholesterol 136 LDL Cholesterol, Calc 81 HDL Cholesterol 43 Lipase Assessment and Plan (1) Dizziness: Status: Acute (2) Hypothyroid: Qualifiers: Hypothyroidism type: unspecified Qualified Code(s): E03.9 - Hypothyroidism, unspecified Status: Acute (3) Asthma: Qualifiers: Asthma severity: mild Asthma persistence: intermittent Asthma complication type: uncomplicated Qualified Code(s): J45.20 - Mild intermittent asthma, uncomplicated Status: Acute Plan 49-year-old female with a past medical history for hypercholesterolemia thyroid disease presents to the emergency room with acute onset of dizziness after ophthalmology appointment during which she was dilated. She states she went out to lunch and right after lunch became so dizzy that she could not walk. Symptoms persisted into this morning so she presented to the emergency room. CTA of head and neck negative, CTA of head negative. When further queried, she states that her dizziness is very much positional and if that she lies still there are no symptoms. 1. Dizziness (likely vestibular neuritis less likely related to mydriasis prior to exam) -admitted to general medical floor -methylprednisolone 60 mg q.6 hours x2 doses -meclizine p.r.n. for dizziness -Zofran for nausea -hold on MRI at this time; can be evaluated in a.m. if symptoms persist 2. Hypothyroidism -review of labs demonstrates persistent euthyroid state since 2020 -continue outpatient therapies 3. Asthma (mild intermittent) -stable and well compensated -continue outpatient therapies Full code Lovenox Will require overnight stay to follow up response to therapies including IV steroids. May requires specialty consultation in a.m. if appropriate Quality Stroke Does the patient have a stroke diagnosis?: No VTE Prior VTE?: No VTE Risk Level:: Medical - moderate - high VTE Device Contraindication: Treatment Not Indicated VTE Drug Contraindication: N/A - Med Ordered
--- NOTE | 2025-02-14 14:55 | PHA.MEDREC ---
Pharmacy Consult ? Medication Reconciliation Pharmacy has completed the medication reconciliation. Spoke with pt to confirm medications. Pt takes 1.5 m of estradiol daily, 8 capsules of fiber BID, and Wegovy 1 mg on Saturday.
[2025-02-14] MEDS: 0.9 % Sodium Chloride Flush 3 ML SYRINGE IVFLUSH (15:18)
--- NOTE | 2025-02-14 15:43 | HO.NURTONUR ---
Simi is a pleasant 49 yo female, full code with e-mycin and sulfa allergies. Pt came to ED for reports of dizziness and N/V since ebing seen at eye dr ghotra 02/13/25 and having eyes dilated. PMH- HDL, MEI, asthma and thyroid disease CTA head/neck negative Treated in ED with IVF, zofran and meclizine. ALso given IV solumedrol Pt is A/O x 3, denies any pain x 1 assist to commode as pt becomes dizzy with position changes 20G IV to R FA
--- NOTE | 2025-02-14 19:58 | HO.NURTONUR ---
RN was getting vitals on pt and O2 was 91- RN placed pt put on 2 L NC.
[2025-02-15 03:25] VITALS: BP 99/59; PULSE 76; RESP 18; TEMP 36.4; O2SAT 99
[2025-02-15] MEDS: 0.9 % Sodium Chloride Flush 3 ML SYRINGE IVFLUSH ×3 (07:28→21:56)
--- NOTE | 2025-02-15 07:41 | P.PNIM_ITS ---
Subjective Subjective Date of Service: 02/15/25 Interval History: positional vertigio, n/v vertigo only when she moves head Physical Exam 2 Exam: Exam: no focal neuro deficit Vital Signs: Vital Signs: Last Vital Signs Temp 97.6 F 02/15/25 03:25 Pulse 76 02/15/25 03:25 Resp 18 02/15/25 03:25 BP 99/59 L 02/15/25 03:25 Pulse Ox 99 02/15/25 03:25 O2 Del Method Nasal Cannula 02/15/25 03:25 O2 Flow Rate 2 02/15/25 03:25 BMI result Body Mass Index 28.3 Objective Data Active Medications Acetaminophen (Acetaminophen 325 Mg Tablet) 650 mg PO Q6H PRN PRN Reason: Pain, Mild 1-3,fever,headache Calcium Carbonate (Calcium Carbonate 750 Mg Tab.Chew) 750 mg PO Q4H PRN PRN Reason: Heartburn Enoxaparin Sodium (Enoxaparin Sodium 40 Mg/0.4 Ml Syringe) 40 mg SUBCUT Q24H QUYEN Last Admin: 02/14/25 15:18 Dose: 40 mg Documented By: JORGE Estradiol (Estradiol 0.5 Mg Tablet) 1.5 mg PO DAILY [facility] Fluoxetine HCl (Fluoxetine Hcl 20 Mg Capsule) 20 mg PO DAILY [facility] Levothyroxine Sodium (Levothyroxine Sodium 50 Mcg Tablet) 50 mcg PO DAILY@0600 [facility] Magnesium Hydroxide (Milk Of Magnesia 30 Ml Oral.Susp) 30 ml PO DAILY PRN PRN Reason: Constipation Melatonin (Melatonin 3 Mg Tablet) 6 mg PO BEDTIME PRN PRN Reason: Insomnia Multivitamins/Vitamin C (Multivitamin Tablet) 1 tab PO DAILY [facility] Non-Formulary Medication (Bupropion Hcl [Wellbutrin Sr]) 200 mg PO DAILY [facility] Non-Formulary Medication (Mecobalamin (Vitamin B12)) 1,000 mcg PO DAILY [facility] Non-Formulary Medication (Psyllium Husk [Daily Fiber]) 4.16 gm PO BID [facility] Non-Formulary Medication (Semaglutide (Weight Loss) [Wegovy]) 1 mg SUBCUT VILLANUEVA [facility] Ondansetron HCl (Ondansetron Hcl 4 Mg/2 Ml Vial) 4 mg IVPUSH Q4H PRN PRN Reason: Nausea and Vomiting Senna/Docusate Sodium (Sennosides/Docusate Sodium Tablet) 2 tab PO BEDTIME [facility] Sodium Chloride (0.9 % Sodium Chloride Flush 3 Ml Syringe) 3 ml IVFLUSH QSHIFT QUYEN Last Admin: 02/15/25 07:28 Dose: 3 ml Documented By: PRISCILA Spironolactone (Spironolactone 25 Mg Tablet) 100 mg PO BID [facility]; Protocol Vitamin D (Cholecalciferol (Vitamin D3) 25 Mcg Tablet) 25 mcg PO DAILY QUYEN Labs 02/14/25 09:39 02/14/25 09:39 Labs: Laboratory Results - last 24 hr 02/14/25 02/14/25 02/14/25 09:39 11:31 11:38 MCV 91.0 MCH 32.4 MCHC 35.6 H RDW 12.4 Plt Count 271 MPV 9.9 Immature Gran % (Auto) 0.4 Neut % (Auto) 73.6 H Lymph % (Auto) 21.8 [place] % (Auto) 3.0 Eos % (Auto) 0.8 Baso % (Auto) 0.4 Lymph # (Auto) 1.7 [place] # (Auto) 0.2 Eos # (Auto) 0.1 Baso # (Auto) 0.0 Abs Immat Gran (auto) 0.03 Absolute Neuts (auto) 5.9 Absolute Nucleated RBC 0.000 Nucleated RBC % (auto) 0.0 Hold Purple Top SEE NOTE PT INR APTT Anion Gap 15 Estim Creat Clear Calc 85.6 Estimated GFR > 60 POC Glucose 76 Random Glucose 129 H Calcium 9.7 Magnesium 1.8 Total Bilirubin 0.5 Direct Bilirubin 0.2 AST 22 ALT 17 Alkaline Phosphatase 44 Troponin I High Sens < 2.7 Total Protein 7.0 Albumin 4.7 Triglycerides Cholesterol LDL Cholesterol, Calc HDL Cholesterol Lipase 36 02/14/25 11:40 MCV MCH MCHC RDW Plt Count MPV Immature Gran % (Auto) Neut % (Auto) Lymph % (Auto) [place] % (Auto) Eos % (Auto) Baso % (Auto) Lymph # (Auto) [place] # (Auto) Eos # (Auto) Baso # (Auto) Abs Immat Gran (auto) Absolute Neuts (auto) Absolute Nucleated RBC Nucleated RBC % (auto) Hold Purple Top PT 12.2 INR 1.1 APTT 28.8 Anion Gap Estim Creat Clear Calc Estimated GFR POC Glucose Random Glucose Calcium Magnesium Total Bilirubin Direct Bilirubin AST ALT Alkaline Phosphatase Troponin I High Sens Total Protein Albumin Triglycerides 64 Cholesterol 136 LDL Cholesterol, Calc 81 HDL Cholesterol 43 Lipase Assessment and Plan (1) Benign positional vertigo: Status: Acute Plan 49-year-old female with a past medical history for hypercholesterolemia thyroid disease presents to the emergency room with acute onset of dizziness after ophthalmology appointment during which she was dilated. She states she went out to lunch and right after lunch became so dizzy that she could not walk. Symptoms persisted into this morning so she presented to the emergency room. CTA of head and neck negative, CTA of head negative. When further queried, she states that her dizziness is very much positional and if that she lies still there are no symptoms. Bening Positional vertigo Meclizine PRN symptomatic treatment Neuro consult PT eval Stop steroid Hypothyroidism Levothyroxine Asthma (mild intermittent) -stable and well compensated -continue outpatient therapies Full code Lovenox Quality Stroke Does the patient have a stroke diagnosis?: No VTE Prior VTE?: No VTE Risk Level:: Medical - moderate - high VTE Device Contraindication: Treatment Not Indicated VTE Drug Contraindication: N/A - Med Ordered
[2025-02-15 07:43] VITALS: BP 104/54; PULSE 80; RESP 18; TEMP 36.6; O2SAT 95
--- NOTE | 2025-02-15 09:20 | P.CNNE_ITS ---
History of Present Illness Data of Consult Service Date: 02/15/25 Primary Care Provider: Brendon Avina MD [facility] Reason for consult: Dizziness 49 years old woman in usual state of health apparently had an eye examination with dilation of pupil. Couple of hours later she started with dizziness which was reported as severe sense of motion with nausea and then vomiting. She was not feeling sick or having any cold or flu. She denied taking any new type of food or exposure to new chemical. She was not drinking and denied drug use. There was no associated weakness or speech problem. This morning she was feeling somewhat better but dizziness was still there. It was getting worse if she would get up or move her head. She denied any ear symptom. Review of Systems 2 Review of Systems: As per HPI [facility], [facility] Past Medical History Medical History (Updated 02/15/25 @ 09:24 by Monse Hendrix MD) Obesity (BMI 30-39.9) Morbid obesity MEI on CPAP Hemorrhoids with complication Family history of colon cancer Colon cancer screening Polycystic ovarian syndrome Asthma Obsessive compulsive disorder History of renal calculi Cholelithiasis Hypothyroid Recurrent major depression Family History Family History Father Cancer Renal cancer Myocardial infarct Lymphoma Mother No problems noted. Sister No problems noted. Sister No problems noted. Son No problems noted. Maternal Grandmother Colon cancer Paternal Grandfather Myocardial infarct Maternal Grandfather Myocardial infarct Other Mental health disorder Surgical History Surgical History History of hemorrhoidectomy Hx of LASIK History of colonoscopy H/O abdominal surgery History of ankle surgery History of section Social History Social History Household Members: Family Housing: House Are you a primary healthcare specialist to a significant other at home: No Do you presently have visiting nurse or other home services: No Alcohol intake: current Alcohol intake frequency: holidays/special occasions only Comment: once a month 1 gin and tonic or beer Patient Tobacco Use Status: Former Tobacco user Tobacco use type: Cigarette Years Smoked: Quit 2015 e-Cigarette/Vaping Use: Never Used Second Hand Smoke Exposure: Yes service: No Current occupational status: employed Cognitive needs: No Hearing needs: No Vision needs: No Meds Allergies Allergy/AdvReac Type Severity Reaction Status Date / Time erythromycin base (From Allergy Intermediate HIVES Verified 02/14/25 09:28 ERYTHROCIN) Sulfa (Sulfonamide Allergy Intermediate RASH Verified 02/14/25 09:28 Antibiotics) (Sulfa (Sulfonamides)) Active Medications: Current Medications Acetaminophen (Acetaminophen 325 Mg Tablet) 650 mg PO Q6H PRN PRN Reason: Pain, Mild 1-3,fever,headache Calcium Carbonate (Calcium Carbonate 750 Mg Tab.Chew) 750 mg PO Q4H PRN PRN Reason: Heartburn Enoxaparin Sodium (Enoxaparin Sodium 40 Mg/0.4 Ml Syringe) 40 mg SUBCUT Q24H [facility] Last Admin: 02/14/25 15:18 Dose: 40 mg Estradiol (Estradiol 0.5 Mg Tablet) 1.5 mg PO DAILY [facility] Last Admin: 02/15/25 08:49 Dose: 1.5 mg Fluoxetine HCl (Fluoxetine Hcl 20 Mg Capsule) 20 mg PO DAILY [facility] Last Admin: 02/15/25 08:50 Dose: 20 mg Levothyroxine Sodium (Levothyroxine Sodium 50 Mcg Tablet) 50 mcg PO DAILY@0600 [facility] Last Admin: 02/15/25 08:46 Dose: 50 mcg Magnesium Hydroxide (Milk Of Magnesia 30 Ml Oral.Susp) 30 ml PO DAILY PRN PRN Reason: Constipation Meclizine HCl (Meclizine Hcl 12.5 Mg Tablet) 12.5 mg PO Q6H PRN PRN Reason: Vertigo Melatonin (Melatonin 3 Mg Tablet) 6 mg PO BEDTIME PRN PRN Reason: Insomnia Multivitamins/Vitamin C (Multivitamin Tablet) 1 tab PO DAILY [facility] Last Admin: 02/15/25 08:50 Dose: 1 tab Non-Formulary Medication (Bupropion Hcl [Wellbutrin Sr]) 200 mg PO DAILY [facility] Ondansetron HCl (Ondansetron Hcl 4 Mg/2 Ml Vial) 4 mg IVPUSH Q4H PRN PRN Reason: Nausea and Vomiting Senna/Docusate Sodium (Sennosides/Docusate Sodium Tablet) 2 tab PO BEDTIME [facility] Sodium Chloride (0.9 % Sodium Chloride Flush 3 Ml Syringe) 3 ml IVFLUSH QSHIFT [facility] Last Admin: 02/15/25 07:28 Dose: 3 ml Spironolactone (Spironolactone 25 Mg Tablet) 100 mg PO BID [facility]; Protocol Last Admin: 02/15/25 08:50 Dose: 100 mg Vitamin D (Cholecalciferol (Vitamin D3) 25 Mcg Tablet) 25 mcg PO DAILY [facility] Last Admin: 02/15/25 08:50 Dose: 25 mcg Home Medications ?Medication ?Instructions ?Recorded ?Confirmed ?Last Taken ?Type bupropion HCl 200 mg tablet,12 hr 200 mg PO DAILY 01/1902/14/25 02/13/25 History sustained-release (Wellbutrin SR) levonorgestrel (Mirena) 1 device intrauterine DIR ECTED 02/10/21 02/14/25 02/13/25 History psyllium husk 0.52 gram capsule 4.16 g PO BID 02/10/21 02/14/25 02/13/25 History (Daily Fiber) estradiol 1 mg tablet 1.5 mg PO DAILY 12/11/2402/13/25 History fluoxetine 20 mg capsule 20 mg PO DAILY 02/14/2501/1902/13/25 History levothyroxine 50 mcg tablet 50 mcg PO DAILY@0600 02/1402/14/25 02/13/25 History multivitamin 1 tab PO DAILY 02/14/2501/1902/13/25 History semaglutide (weight loss) 1 mg/0.5 1 mg subcut VILLANUEVA 01/1902/14/25 02/13/25 History mL subcutaneous pen injector (Lilia) Physical Exam 2 Vital Signs: Vital Signs: Last Vital Signs Temp 97.8 F 02/15/25 07:43 Pulse 80 02/15/25 07:43 Resp 18 02/15/25 07:43 BP 104/54 L 02/15/25 07:43 Pulse Ox 95 02/15/25 07:43 O2 Del Method Room Air 02/15/25 07:43 O2 Flow Rate 2 02/15/25 03:25 BMI result Body Mass Index 28.3 Neuro: Other: She is alert and awake with normal spontaneity of speech fluency comprehension and affect. Pupils are about 3 mm round reactive to light. Extraocular muscles were intact. There was no nystagmus. Face is symmetrical. Tongue is midline. There was no pronator drift. [id number] testing is normal. Deep tendon reflexes are 1+ except left knee reflexes about 4+. Plantars are equivocal. Speech is normal. Results Labs 02/14/25 09:39 02/14/25 09:39 Labs: Short CBC 02/14/25 Range/Units 09:39 WBC 8.0 (4.8-10.8) X10*3/uL Hgb 14.3 (12.0-16.0) g/dl Hct 40.2 (37.0-47.0) % Plt Count 271 (160-400) X10*3/uL BMP 02/14/25 09:39 Sodium 140 Potassium 3.6 D Chloride 108 Carbon Dioxide 21 L BUN 14 Creatinine 0.83 Calcium 9.7 Liver Function 02/14/25 Range/Units 09:39 Total Bilirubin 0.5 (0.0-1.0) mg/dL Direct Bilirubin 0.2 (0.0-0.5) mg/dL AST 22 (5-31) U/L ALT 17 (0-31) U/L Alkaline Phosphatase 44 (39-117) U/L Albumin 4.7 (3.5-5.0) g/dL Head CT revealed mild left frontal white matter hypodensities. CTA did not reveal any significant stenosis. Assessment and Plan (1) Dizziness: Status: Acute Plan 49 years old woman with severe dizziness nausea and vomiting that apparently happened after she had an eye examination and pupils were dilated. Now she was better but some dizziness was still there, which was a vertigo type. There was no recent cold or flu-like illness or ear symptom. Examination revealed mild left leg hyperreflexia. Head CT revealed possible mild white matter disease. My recommendation is to obtain a brain MRI with and without contrast to rule out demyelinating disease or any lesion adjacent to vestibular cochlear apparatus. Procedures Date of Service Date of Service: 02/15/25
--- NOTE | 2025-02-15 09:27 | MHC.CM.PN ---
pt lives with s/o is independent has own ride home dc plan home no services
[2025-02-15 12:39] LABS: INR Whole Blood 1.0 (0.9-1.1); Prothrombin Time Whole Blood 12.5 sec (11.1-13.5)
[2025-02-15 15:28] VITALS: BP 99/57; PULSE 79; RESP 14; TEMP 36.8; O2SAT 96
[2025-02-15 19:25] VITALS: BP 98/53; PULSE 80; RESP 12; TEMP 36.8; O2SAT 99
[2025-02-16 03:22] VITALS: BP 100/52; PULSE 68; RESP 18; TEMP 36.6; O2SAT 99
[2025-02-16 07:48] VITALS: BP 91/54; PULSE 75; RESP 14; TEMP 36.8; O2SAT 97
[2025-02-16] MEDS: 0.9 % Sodium Chloride Flush 3 ML SYRINGE IVFLUSH (08:25)
--- NOTE | 2025-02-16 09:50 | P.DS_ITS ---
DS: Providers Provider Date of Service: 02/16/25 Date of admission: 02/14/25 13:58 Date of discharge: 02/16/25 Primary care physician: Brendon Avina MD Consults: 02/15/25 07:53 Consult to Neurology Routine Consulting Provider: [facility] Reason for consultation: vertigo Has provider been notified: No DS: Diagnosis Discharge Diagnosis (1) Benign positional vertigo: Status: Acute DS: Summary Hospital Course Hospital Course: admission hpi Chief Complaint: Positional dizziness 49-year-old female, with a past medical history of hypercholesterolemia, thyroid disease, who presents emergency department with concerns of ongoing dizziness, nausea and vomiting since yesterday. Patient reports that she went to her eye doctor yesterday and had her eyes dilated. She was told at the eye doctor that they ?over dilated her eyes?. She states that 2 hours later she developed dizziness, nausea and vomiting. She states that she has been keeping her eyes c losed which has been helping with her symptoms however states that she has had persistent dizziness since. She states several episodes of vomiting. Denies history of vertigo or similar symptoms in the past. No recent head trauma, no falls. She has been in her usual state of health recently. No headache, fevers, chills, chest pain, shortness of breath, abdominal pain, diarrhea or constipation. No urinary symptoms. When further queried her symptoms are not present at all times; symptoms only occur with head turning/position changes. Workup including CTA head and CTA head and neck all negative hospital course:Patient presents with nausea, vomiting, dizziness (vertigo) that happens when she moves her head, CT head and CTA of head and neck negative. MRI of the head show no acute finding. Treated symptomatically with IVF, antiemetics, antihiastamines. She is expected to make full recovery. her symptoms are better. Time Attestation Discharge Coordination Time (in mins): 35 Quality: Safe Use of Opioids Does Pt have an Active Cancer Diagnosis on the Problem List?: No Quality: Stroke Does the patient have a stroke diagnosis?: No Physical Exam Vital Signs: Vital Signs: Last Vital Signs Temp 97.8 F 02/15/25 07:43 Pulse 80 02/15/25 07:43 Resp 18 02/15/25 07:43 BP 104/54 L 02/15/25 07:43 Pulse Ox 95 02/15/25 07:43 O2 Del Method Room Air 02/15/25 07:43 O2 Flow Rate 2 02/15/25 03:25 BMI result Body Mass Index 28.3 Selected Entries 02/16/25 07:48 Temperature 98.2 F Pulse Rate 75 Respiratory Rate 14 Blood Pressure 91/54 L Pulse Oximetry 97 Oxygen Delivery Me thod Room Air Const: Other: General: AO X 3, no acute distress Resp: CTA bilateral CVS: S1,S2,RRR GI: +BS, NT, no distention Skin: No rash Neuro: motor grossly intact Psych: appropriate affect DS: Data Data Completed and Pending Labs on day of discharge: Laboratory Results - last 24 hr 02/14/25 02/14/25 02/14/25 09:39 11:31 11:38 WBC 8.0 RBC 4.42 Hgb 14.3 Hct 40.2 MCV 91.0 MCH 32.4 MCHC 35.6 H RDW 12.4 Plt Count 271 MPV 9.9 Immature Gran % (Auto) 0.4 Neut % (Auto) 73.6 H Lymph % (Auto) 21.8 Richardson % (Auto) 3.0 Eos % (Auto) 0.8 Baso % (Auto) 0.4 Lymph # (Auto) 1.7 Richardson # (Auto) 0.2 Eos # (Auto) 0.1 Baso # (Auto) 0.0 Abs Immat Gran (auto) 0.03 Absolute Neuts (auto) 5.9 Absolute Nucleated RBC 0.000 Nucleated RBC % (auto) 0.0 Hold Purple Top SEE NOTE PT INR APTT Sodium 140 Potassium 3.6 D Chloride 108 Carbon Dioxide 21 L Anion Gap 15 BUN 14 Creatinine 0.83 Estim Creat Clear Calc 85.6 Estimated GFR > 60 POC Glucose 76 Random Glucose 129 H Calcium 9.7 Magnesium 1.8 Total Bilirubin 0.5 Direct Bilirubin 0.2 AST 22 ALT 17 Alkaline Phosphatase 44 Troponin I High Sens < 2.7 Total Protein 7.0 Albumin 4.7 Triglycerides Cholesterol LDL Cholesterol, Calc HDL Cholesterol Lipase 36 02/14/25 11:40 WBC RBC Hgb Hct MCV MCH MCHC RDW Plt Count MPV Immature Gran % (Auto) Neut % (Auto) Lymph % (Auto) Richardson % (Auto) Eos % (Auto) Baso % (Auto) Lymph # (Auto) Richardson # (Auto) Eos # (Auto) Baso # (Auto) Abs Immat Gran (auto) Absolute Neuts (auto) Absolute Nucleated RBC Nucleated RBC % (auto) Hold Purple Top PT 12.2 INR 1.1 APTT 28.8 Sodium Potassium Chloride Carbon Dioxide Anion Gap BUN Creatinine Estim Creat Clear Calc Estimated GFR POC Glucose Random Glucose Calcium Magnesium Total Bilirubin Direct Bilirubin AST ALT Alkaline Phosphatase Troponin I High Sens Total Protein Albumin Triglycerides 64 Cholesterol 136 LDL Cholesterol, Calc 81 HDL Cholesterol 43 Lipase Discharge Plan Discharge Anticipated Discharge Date/Time: 02/16/25 09:49 Patient Disposition: Home, Self-Care Discharge Diagnosis: Bening positional vertigo Referrals: Po,Brendon Cowan MD [Primary Care Provider, Internal Medicine] - 1 Week Discharge Medications: New meclizine 12.5 mg Tablet 12.5 mg PO Q6H PRN (Reason: Vertigo) Qty: 20 0RF Continued (DME) AUTOPAP mode 6-20 cm H2O humidified AIR See Rx Instructions .Route .MEDSUPPLY Qty: 1 0RF Rx Instructions: As directed spironolactone 100 mg tablet 100 mg PO BID 90 Days Qty: 180 2RF Rx Instructions: polycystic sennosides-docusate sodium [Senna Plus] 8.6-50 mg tablet 2 tab-cap PO BEDTIME 30 Days Qty: 60 2RF ibuprofen 600 mg tablet 600 mg PO Q6H PRN (Reason: pain) Qty: 30 0RF fluoxetine 20 mg capsule 20 mg PO DAILY Wegovy 1 mg/0.5 mL pen injector 1 mg subcut VILLANUEVA levothyroxine 50 mcg tablet 50 mcg PO DAILY@0600 multivitamin Tablet 1 tab PO DAILY bupropion HCl [Wellbutrin SR] 200 mg tablet sustained-release 12 hr 200 mg PO DAILY Mirena 20 mcg/24 hours (6 yrs) 52 mg intrauterine device 1 device intrauterine DIRECTED psyllium husk [Daily Fiber] 0.52 gram capsule 4.16 g PO BID Rx Instructions: 8 capsules BID of generic Metamucil capsules estradiol 1 mg tablet 1.5 mg PO DAILY Rx Instructions: Dr. Willy ROGERS cholecalciferol (vitamin D3) 25 mcg (1,000 unit) capsule 25 mcg PO DAILY MDD 1000units 90 Days Qty: 90 3RF mecobalamin (vitamin B12) 1,000 mcg tablet,chewable 1,000 mcg PO DAILY MDD 1000mcg 90 Days Qty: 90 3RF Discharge Orders: Discharge Order (Routine); Ordered 02/16/25 Ordered By: Chance Pate Diet: Advance to usual diet Activity on Discharge: As tolerated Stand Alone Forms: Patient Portal Discharge page Print Language: Tunisian Care Plan Goals: Recovery from vertigo. Health Concerns: Benign positional vertigo Plan of Treatment: Rest, drink plenty of fluid, take meclizine as needed for vertigo. Follow-up with your primary care doctor within 1 week, call for appointment. Assessment: See above
--- NOTE | 2025-02-16 12:04 | MHC.CM.PN ---
pt dcd self care
[2025-02-16 15:02] VITALS: BP 100/59
[2025-02-16 15:08] VITALS: BP 100/59; PULSE 75; RESP 14; TEMP 36.8; O2SAT 98
== END 2025-02-16 15:24 | disposition home or self-care (01) ==
LOC: HO.ED 12:35 → HO.EDOVER 14:07 → HO.S3 19:25
PROVIDERS: Emergency Medicine; Physician Assistant Medical; Admitting Provider Hospitalist; Emergency Provider Emergency Medicine Emergency Medical Services; PCP Internal Medicine; Visit Provider Internal Medicine
DX: H81.10 Benign paroxysmal vertigo, unspecified ear (principal); J45.20 Mild intermittent asthma, uncomplicated; E03.9 Hypothyroidism, unspecified; R11.2 Nausea with vomiting, unspecified; R94.31 Abnormal electrocardiogram [ECG] [EKG]; Z79.899 Other long term (current) drug therapy
CPT/HCPCS: 36415; 70450; 70496; 70498; 70551; 80053; 80061; 82248; 82947; 83690; 83735; 84484; 85025; 85610; 85730; 93005; 95992; 97162; 97530; 99221; 99285; J1200; J1650; J2405; J2765; J2919; Q9967

== ENCOUNTER → 2025-02-14 09:45 | Outpatient (BNV) | payer OTHER, SELFPAY | PROVIDERS: Admitting Provider Hospitalist; Emergency Provider Emergency Medicine Emergency Medical Services; PCP Internal Medicine; Visit Provider Internal Medicine Cardiovascular Disease | DX: R94.31 Abnormal electrocardiogram [ECG] [EKG] (principal); R42 Dizziness and giddiness; I63.9 Cerebral infarction, unspecified | CPT/HCPCS: 93010 ==

== ENCOUNTER → 2025-02-14 11:04 | Outpatient (BNV) | payer OTHER, SELFPAY | PROVIDERS: Emergency Provider Emergency Medicine; PCP Internal Medicine; Visit Provider Radiology Vascular & Interventional Radiology | DX: R42 Dizziness and giddiness (principal); R11.2 Nausea with vomiting, unspecified | CPT/HCPCS: 70450; 70496; 70498 ==

== ENCOUNTER 2025-02-14 13:58 | Outpatient (BNV) | payer OTHER, SELFPAY | END 2025-02-16 10:13 | PROVIDERS: Admitting Provider Hospitalist; Emergency Provider Emergency Medicine Emergency Medical Services; PCP Internal Medicine; Visit Provider Radiology Diagnostic Radiology | DX: R42 Dizziness and giddiness (principal); R90.82 White matter disease, unspecified | CPT/HCPCS: 70551 ==

== ENCOUNTER → 2025-02-14 13:58 | Outpatient (BNV) | payer OTHER, SELFPAY | PROVIDERS: Admitting Provider Hospitalist; Emergency Provider Emergency Medicine Emergency Medical Services; PCP Internal Medicine; Visit Provider Psychiatry & Neurology Neurology | DX: R42 Dizziness and giddiness (principal) | CPT/HCPCS: 99223 ==

== ENCOUNTER → 2025-02-14 13:58 | Outpatient (BNV) | payer OTHER, SELFPAY | PROVIDERS: Admitting Provider Hospitalist; Emergency Provider Emergency Medicine Emergency Medical Services; PCP Internal Medicine; Visit Provider Hospitalist | DX: R42 Dizziness and giddiness (principal); E03.9 Hypothyroidism, unspecified; J45.20 Mild intermittent asthma, uncomplicated | CPT/HCPCS: 99223 ==

== ENCOUNTER 2025-02-24 09:33 | Outpatient (AMB) | payer OTHER, SELFPAY ==
[2025-02-24 09:36] VITALS: BP 116/80; PULSE 77; TEMP 36.2; O2SAT 98; BMI 27.2
--- NOTE | 2025-02-24 09:36 | MHC.PC.OV ---
Vital Signs 02/24/25 09:36 Height 5 ft 6 in Weight 168 lb 8 oz BMI 27.2 BP 116/80 Blood Pressure Location Lt brachial Position Sitting Pulse 77 Pulse Source Pulse Oximeter Temp 97.1 F Temp Source Temporal Artery Scan Pulse Oximetry (%) 98 Oxygen Delivery Method Room Air Intake Visit Reasons: [facility] [place] Accompanied by: Significant Other Allergies erythromycin base (From ERYTHROCIN) Allergy (Intermediate, Verified 02/24/25 09:40) HIVES Sulfa (Sulfonamide Antibiotics) (Sulfa (Sulfonamides)) Allergy (Intermediate, Verified 02/24/25 09:40) RASH Medication List - Last Reconciled 02/24/25 by Brendon Avina MD [AUTOPAP mode 6-20 cm H2O humidified AIR As directed] bupropion HCl SR (Wellbutrin SR) 200 mg PO DAILY cholecalciferol (vitamin D3) 25 mcg PO DAILY 3 months MDD 1000units estradiol 1.5 mg PO DAILY fluoxetine 20 mg PO DAILY ibuprofen 600 mg PO Q6H PRN levonorgestrel (Mirena) 1 device intrauterine DIRECTED levothyroxine 50 mcg PO DAILY@0600 mecobalamin (vitamin B12) 1,000 mcg PO DAILY 3 months MDD 1000mcg multivitamin 1 tab PO DAILY psyllium husk (Daily Fiber) 4.16 grams PO BID semaglutide (weight loss) (Wegovy) 1 mg subcut VILLANUEVA sennosides-docusate sodium 8.6-50 mg (Senna Plus) 2 tab-caps (2 x 8.6-50 mg) PO BEDTIME 30 days spironolactone 100 mg PO BID 90 days Tobacco use date assessed: 02/24/25 Dental Screening Dental Screen Date: 02/24/25 Did you have a dental visit in the last 12 months?: Yes Did you have a dental problem in the last 6 months where you did not have access to dental care?: No Was dental information given to patient?: Patient has dentist HPI [facility] [place] HPI Details admitted last week eye exam felt under the weather, 2 hours later felt sick , nausea and vomiting dizzy , no abd pain, no sob, dizzy, worse in am- called ambulance ER vist. still feeling dizzy ringing in ear PFSH Medical History Obesity (BMI 30-39.9) Morbid obesity MEI on CPAP Hemorrhoids with complication Family history of colon cancer Colon cancer screening Polycystic ovarian syndrome Asthma Obsessive compulsive disorder History of renal calculi Cholelithiasis Hypothyroid Recurrent major depression Surgical History History of hemorrhoidectomy Hx of LASIK History of colonoscopy H/O abdominal surgery History of ankle surgery History of section Family History Father Cancer Renal cancer Myocardial infarct Lymphoma Mother No problems noted. Sister No problems noted. Sister No problems noted. Son No problems noted. Maternal Grandmother Colon cancer Paternal Grandfather Myocardial infarct Maternal Grandfather Myocardial infarct Other Mental health disorder Social History Household Members: Family Housing: House Are you a primary patient care nursing assistant to a significant other at home: No Do you presently have visiting nurse or other home services: No Alcohol intake: current Alcohol intake frequency: holidays/special occasions only Comment: once a month 1 gin and tonic or beer Patient Tobacco Use Status: Former Tobacco user Tobacco use type: Cigarette Years Smoked: Quit 2016 e-Cigarette/Vaping Use: Never Used Second Hand Smoke Exposure: Yes service: No Current occupational status: employed Cognitive needs: No Hearing needs: No Vision needs: No Female Reproductive History Menstrual Age of Menarche: 11 Questionnaire PHQ-9 Over the last 2 weeks, how often have you been bothered by any of the following problems? 1. Little interest or pleasure in doing things: several days 2. Feeling down, depressed, or hopeless: several days 3. Trouble falling or staying asleep, or sleeping too much: not at all 4. Feeling tired or having little energy: several days 5. Poor appetite or overeating: not at all 6. Feeling bad about yourself - or that you are a failure or have let yourself or your family down: not at all 7. Trouble concentrating on things, such as reading the newspaper or watching television: not at all 8. Moving or speaking so slowly that other people could have noticed. Or the opposite - being so fidgety or restless that you have been moving around a lot more than usual: not at all 9. Thoughts that you would be better off or of hurting yourself in some way: not at all Total score: 3 Depression Screening Interpretation: Positive Depression Screening Done: Yes Source: Developed by Drs. Sammy Cristobal, Yoli Vasquez, Thor Nash and colleagues, with an educational alexa from [employer]. Thrive Questionnaire Date Thrive assessed: 12/09/24 I am a: Patient What is your living situation today?: I have a steady place to live Within the past 12 months, did the food you bought not last and you didn't have the money to get more?: Never true Within the past 12 months, did you worry whether your food would run out before you got money to buy more?: Never true Do you have trouble paying for medicines?: No Do you have trouble getting transportation to medical appointments?: No Do you have trouble paying your heating and electricity bill?: No Do you have trouble taking care of your child, family member or friend?: No Do you have trouble with day-to-day activities such as bathing, preparing meals, shopping, managing finances, etc.?: No Are you currently unemployed and looking for a job?: No Are you interested in more education?: No Please select the resources that you would like help with: None Currently or been in a relationship where the following occur: No concerns reported THRIVE Score: 0 AUDIT C Alcohol Use Questionnaire (AUDIT-C) 1. How often do you have a drink containing alcohol?: Monthly or less 2. How many drinks containing alcohol do you have on a typical day when you are drinking?: 1 or 2 3. How often do you have six or more drinks on one occasion?: Never Total Score: 1 CHARLEY-7 AMB Questionnaire CHARLEY-7 Date CHARLEY - 7 assessed: 12/11/24 Feeling nervous, anxious, or on edge: 1 = Several days Not being able to stop or control worryin = Not at all Worrying too much about different things: 0 = Not at all Trouble relaxin = Nearly every day Being so restless that it is hard to sit still: 0 = Not at all Becoming easily annoyed or irritable: 1 = Several days Feeling afraid as if something awful might happen: 1 = Several days Total CHARLEY-7 score (0-4 normal; 5-9 mild; 10-14 moderate; 15-21 severe): 6 Source: Developed by Drs. Sammy Cristobal, Yoli Vasquez, Thor Nash and colleagues, with an educational alexa from [employer]. Physical exam (Primary Care) Vital Signs: Last Vital Signs Temp 97.1 F 02/24/25 09:36 Pulse 77 02/24/25 09:36 BP 116/80 02/24/25 09:36 Pulse Ox 98 02/24/25 09:36 Oxygen Delivery Method Room Air 02/24/25 09:36 BMI result Body Mass Index 27.2 Tobacco/Smoking Status: Tobacco use Status Tobacco use date assessed 02/24/25 02/24/25 09:41 Patient Tobacco Use Status Former Tobacco user 02/24/25 09:41 Tobacco use type Cigarette 02/24/25 09:41 e-Cigarette/Vaping Use Never Used 02/24/25 09:41 PHQ-9: PHQ-9 Score PHQ-9: Total score 3 02/24/25 10:18 Depression Screening Interpretation: Positive Thrive Assessment: Date of Thrive Assessment Date Thrive assessed 12/09/24 02/24/25 09:41 Currently or been in a relationship where the following occur: No concerns reported Const General: alert; No acute distress Eyes Conjunctivae: conjunctivae normal Resp Auscultation: clear to auscultation bilaterally Cardio Rate: regular rate Rhythm: regular rhythm GI Inspection: Yes normal to inspection Extrem General: Yes normal to inspection and No edema Coding Level of Care Code Est Pt Level 4 (21931) Complex EM visit Add On G2211 Diagnoses Impaired glucose tolerance R73.02 Overweight (BMI 25.0-29.9) E66.3 Benign positional vertigo H81.10 Assessment & Plan Assessment & Plan (1) Impaired glucose tolerance: Code(s): R73.02 - Impaired glucose tolerance (oral) Category: Medical Plan: Patient's blood sugar test was done without the fasting. Will request for a new blood work (2) Overweight (BMI 25.0-29.9): Code(s): E66.3 - Overweight Category: Medical Plan: Continue with present medication (3) Benign positional vertigo: Code(s): H81.10 - Benign paroxysmal vertigo, unspecified ear Category: Medical Plan: Discussed with the patient regarding the eyedrop that was given combined with having spironolactone, and wegovy. With the persistent problem will refer to physical therapy Plan History of Present Illness The patient is a 49-year-old female presenting with dizziness and vertigo. The dizziness began after an eye examination where excessive dilation drops were used, leading to severe vertigo and nausea. The patient was admitted to the hospital for observation due to persistent symptoms, including low blood pressure and inability to maintain balance. During hospitalization, the patient underwent an MRI and was seen by a vertigo specialist who performed the Naun maneuver, which provided some relief. The patient continues to experience residual dizziness, affecting her ability to drive and perform daily activities safely. The patient also reports a history of polycystic ovary syndrome, for which she is on spironolactone, a potassium-sparing diuretic. She was taken off spironolactone during her hospital stay due to low blood pressure concerns. Additionally, the patient has been diagnosed with thyroid nodules, which were identified incidentally during imaging studies. These nodules are currently not causing any symptoms and do not require immediate intervention. The patient has experienced significant stress at work, which may have contributed to her recent health issues. She reports that the stress level was high due to unexpected changes in her work environment, which coincided with the onset of her symptoms. Health Maintenance - Blood sugar levels to be retested under fasting conditions - Referral for physical therapy due to persistent dizziness Social History - Employment: High stress levels due to unexpected changes in work environment Review of Systems - General: Reports dizziness and vertigo - Endocrine: Reports thyroid nodules - Neurological: Reports severe vertigo and nausea - Cardiovascular: Denies palpitations - Respiratory: Denies cough, sneezing, or sore throat Physical Exam - General: Patient appears alert and oriented - Neurological: No focal neurological deficits observed Results - Labs: Blood sugar level was 129 mg/dL, not fasting - Imaging: MRI showed small thyroid nodules and prominent Meckel's caves Plan Patient was informed and verbally consented to the use of an ambient scribe for clinic note documentation during this visit. 1. Hyperglycemia The patient's blood sugar level was elevated at 129 mg/dL, but the test was not conducted under fasting conditions. A repeat fasting blood sugar test has been ordered to confirm the diagnosis of hyperglycemia. 2. Dizziness And Vertigo The patient experienced severe dizziness and vertigo following an eye examination where excessive dilation drops were used. She was admitted to the hospital for observation and received the Naun maneuver, which provided some relief. A referral to physical therapy has been made to address persistent symptoms. 3. Thyroid Nodules Small thyroid nodules were identified incidentally during imaging studies. Currently, these nodules are asymptomatic and do not require immediate intervention. 4. Polycystic Ovary Syndrome The patient has a history of polycystic ovary syndrome and is on spironolactone, which was temporarily discontinued during hospitalization due to low blood pressure. The management plan includes monitoring and adjusting medications as needed. Discussion Notes During the visit, we discussed the elevated blood sugar levels and the need for a repeat fasting test to confirm hyperglycemia. We also reviewed the patient's recent hospitalization due to dizziness and vertigo, likely exacerbated by stress and medication interactions. The importance of physical therapy for ongoing symptoms was emphasized. We addressed the incidental finding of thyroid nodules, which currently do not require intervention. The patient was advised to monitor her symptoms and maintain hydration, especially given her medication regimen. Patient Instructions - Schedule a fasting blood sugar test as soon as possible. - Attend physical therapy sessions as scheduled to address dizziness. - Monitor symptoms and report any worsening to the healthcare provider. - Maintain adequate hydration, especially while on medications. Orders: Orders Comprehensive Met. Panel Today R73.02 - Impaired glucose tolerance (oral) Hemoglobin A1c Today R73.02 - Impaired glucose tolerance (oral) Thyroid Stimulating Hormone Today R73.02 - Impaired glucose tolerance (oral) PT Evaluation and Treatment Today H81.10 - Benign paroxysmal vertigo, unspecified ear Free T4 (Free Thyroxine) Today R73.02 - Impaired glucose tolerance (oral)
== END 2025-02-24 10:36 | disposition home or self-care (01) ==
LOC: HO.HMCH 09:34
PROVIDERS: PCP Internal Medicine; Visit Provider Internal Medicine
DX: R73.02 Impaired glucose tolerance (oral) (principal); E66.3 Overweight; H81.10 Benign paroxysmal vertigo, unspecified ear